=== PATIENT | male | born 1945 ===

== ENCOUNTER 2024-10-28 13:21 | Outpatient (CLI) | payer MEDICARE, BC, SELFPAY | END 2024-10-28 13:22 | disposition home or self-care (01) | LOC: AMB 10-29 13:41 | PROVIDERS: PCP Family Medicine; Visit Provider Family Medicine | DX: R41.82 Altered mental status, unspecified (principal); Z91.81 History of falling | CPT/HCPCS: A0425; A0429 ==

== ENCOUNTER 2024-10-28 14:13 | Emergency (ER) | payer MEDICARE, BC, SELFPAY ==
[2024-10-28 14:16] VITALS: BP 155/67; PULSE 62; RESP 16; TEMP 36.5; O2SAT 94
--- NOTE | 2024-10-28 15:32 | CRLHL7_ITS ---
For Patients: As a result of the Century Cures Act, medical imaging exams and procedure reports are released immediately into your electronic medical record. You may view this report before your referring provider. If you have questions, please contact your health care provider. INDICATION: Falls TECHNIQUE: CT of the head without contrast. Coronal and sagittal reformats. Bone and soft tissue algorithms. COMPARISON: None FINDINGS: No acute intracranial hemorrhage or extra-axial collection. No evidence of acute cortical infarction. Prominent perivascular spaces in the bilateral basal ganglia and subinsular cortex No mass effect or midline shift. Moderate generalized parenchymal volume loss. Moderate regions of decreased attenuation within the periventricular and subcortical white matter of both cerebral hemispheres most likely reflect chronic microvascular ischemic disease and age related change in this patient. Vascular calcifications within the carotid siphons. Orbital contents are normal. No calvarial fractures. No lytic or sclerotic osseous lesions within the calvarium or skull base. Scalp and other imaged soft tissue structures are normal. Mastoid air cells are clear. IMPRESSION: No acute intracranial abnormality. Please note that all CT scans at this facility use dose modulation, iterative reconstruction, and/or weight-based dosing when appropriate to reduce radiation dose to as low as reasonably achievable. Dictated by Jose Olvera MD @ 10/28/2024 4:21:49 PM (Electronically Signed)
[2024-10-28 15:55] LABS: Basophils Absolute Auto 0.03 K/uL (0.00-0.30); Basophils Percent Auto 0.4 % (0.0-3.0); Eosinophils Percent Auto 7.4 % (0.0-7.0); Hematocrit 34.1 % (37.0-53.0); Immature Granulocytes Abs Auto 0.02 K/uL (0.00-0.30); Immature Granulocytes Pct Auto 0.3 %; Lymphocytes Percent Auto 16.4 % (20-44); Mean Corpuscular HGB Conc 32 gm/dL (32-36); Mean Corpuscular Hemoglobin 28 pg (26-34); Mean Corpuscular Volume 88 fL (80-100); Monocytes Percent Auto 9.8 % (0.0-11.0); Neutrophils Absolute Auto 4.44 K/uL (1.7-7.0); Neutrophils Percent Auto 65.7 % (42.0-72.0); Platelet Count* 194 K/uL (140-440); RDW Coefficient of Variation % 13.3 % (11.5-15.5); Red Blood Count 3.89 m/uL (4.30-5.90); White Blood Count* 6.76 K/uL (4.50-11.00)
[2024-10-28 16:06] LABS: Slide Review Reflex No
[2024-10-28 16:09] LABS: Chloride* 101 mmol/L (96-114); Potassium* 4.4 mmol/L (3.6-5.1); Sodium* 137 mmol/L (135-149)
[2024-10-28 16:12] LABS: Anion Gap 3 mEq/L (7-15); Blood Urea Nitrogen* 12 mg/dL (7-30); Calcium* 8.5 mg/dL (8.4-10.6); Carbon Dioxide* 33 mmol/L (20-32); Creatinine* 0.8 mg/dL (0.5-1.5); Estimated Glomerular Filt Rate 89 ml/min; Glucose* 194 mg/dL (60-115)
--- NOTE | 2024-10-28 16:20 | ED.GENADULT ---
HPI - General Adult General Chief complaint: Fall/Minor Trauma Stated complaint: Repeated Falls Time Seen by Provider: 10/28/24 15:02 History of Present Illness HPI narrative: This 78-year-old male is a new resident apparently in a [facility] facility. He has significant dementia. He has reportedly fallen a couple times a few days ago and again today. These were unwitnessed. The patient is a very poor historian but states that he is not complaining of any pain. He is moving all extremities and shows no sign of injury externally. He was sent here for evaluation because of frequent falls. The patient is under the guardianship of [facility]. Related Data Home Medications ?Medication ?Instructions ?Recorded ?Confirmed aspirin 81 mg tablet,delayed 81 mg PO DAILY 10/28/24 10/28/24 release (Adult Aspirin Regimen) atorvastatin 10 mg tablet 10 mg PO HS 10/28/24 10/28/24 cyanocobalamin (vitamin B-12) 100 100 mcg PO DAILY 10/28/24 10/28/24 mcg tablet escitalopram oxalate 10 mg tablet 10 mg PO DAILY 10/28/24 10/28/24 furosemide 20 mg tablet 20 mg PO DAILY 10/28/24 10/28/24 insulin glargine 100 unit/mL (3 12 unit subcut HS 10/28/24 10/28/24 mL) subcutaneous pen (Basaglar KwikPen U-100 Insulin) insulin lispro 100 unit/mL 3 unit subcut TID 10/28/24 10/28/24 subcutaneous pen (Admelog SoloStar U-100 Insulin lispro) lisinopril 20 mg tablet 20 mg PO DAILY 10/28/24 10/28/24 metformin 1,000 mg tablet,extended 1,000 mg PO BIDWM 10/28/24 10/28/24 release 24hr (osmotic) metoprolol tartrate 100 mg tablet 100 mg PO BID 10/28/24 10/28/24 multivitamin (Daily Multi-Vitamin 1 tab PO DAILY 10/28/24 10/28/24 tablet) potassium chloride 20 mEq oral 20 meq PO DAILY 10/28/24 10/28/24 packet (Klor-Con) quetiapine 200 mg tablet (Seroquel) 200 mg PO BID 10/28/24 10/28/24 Allergies Allergy/AdvReac Type Severity Reaction Status Date / Time No Known Drug Allergies Allergy Verified 10/28/24 14:42 Review of Systems Status of ROS: Reports: unobtainable due to mental status Narrative: Unable to obtain due to significant dementia. [facility] Smoking Status: Unknown if ever smoked Exam Narrative: Exam Narrative: Constitutional: Well-developed, well-nourished, no acute distress. HEENT: Normocephalic, atraumatic. Neck: Normal range of motion. Nontender. Supple. Heart: Regular. No murmurs. Normal rate. Intact distal pulses. Lungs: Clear to auscultation. No chest discomfort. No wheezes, rhonchi, or rales. Abdomen: Normal bowel sounds. Nontender. No rebound tenderness. Genitalia: Deferred. Back: No midline tenderness. Normal range of motion. Extremities: Normal range of motion. No injury. No pain when log-rolling either leg. Skin: Intact. No rash. Warm. No erythema or pallor. Neurologic: No altered sensation. No weakness. Able to move all extremities. Nursing notes and vitals signs are reviewed. Const: Vital Signs, click to edit/add: Vital Signs - 24 hr 10/28/24 14:16 Temperature 97.7 F Pulse Rate [Pulse Oximeter] 62 Respiratory Rate 16 Blood Pressure [Ri ght Upper Arm] 155/67 H Pulse Oximetry 94 Oxygen Delivery Me thod Room Air Course Vital Signs Vital signs: Initial Vital Signs Temperature 97.7 F 10/28/24 14:16 Temperature Source Temporal Artery Scan 10/28/24 14:16 Pulse Rate 62 10/28/24 14:16 Respiratory Rate 16 10/28/24 14:16 Blood Pressure 155/67 H 10/28/24 14:16 Blood Pressure Mean 96 10/28/24 14:16 Blood Pressure Position Supine 10/28/24 14:16 Pulse Oximetry 94 10/28/24 14:16 Oxygen Delivery Method Room Air 10/28/24 14:16 Vital Signs Temperature 97.7 F 10/28/24 14:16 Pulse Rate 62 10/28/24 14:16 Respiratory Rate 16 10/28/24 14:16 Blood Pressure 155/67 H 10/28/24 14:16 Pulse Oximetry 94 10/28/24 14:16 Oxygen Delivery Method Room Air 10/28/24 14:16 Temperature 97.7 F 10/28/24 14:16 Pulse Rate 62 10/28/24 14:16 Respiratory Rate 16 10/28/24 14:16 Blood Pressure 155/67 H 10/28/24 14:16 Pulse Oximetry 94 10/28/24 14:16 Oxygen Delivery Method Room Air 10/28/24 14:16 Medical Decision Making MDM Narrative Medical decision making narrative: This patient is a new resident in a care facility and has had several falls over the past few days. He has significant dementia and is not able to carry on a meaningful conversation. He does follow some commands and is able to move all extremities. When palpating his extremities and ribs and abdomen he did not report any sign of discomfort. He is moving all extremities and does not have any external sign of injury. I did obtain a CT scan of his head and labs and these returned with reassuring results. The patient obviously is at risk for falls but is okay to return to the care home facility where he resides. Lab Data Labs: Lab Results 10/28/24 Range/Units 15:48 WBC 6.76 (4.50-11.00) K/uL RBC 3.89 L (4.30-5.90) m/uL Hgb 11.0 L (13.5-17.5) gm/dL Hct 34.1 L (37.0-53.0) % MCV 88 (80-100) fL MCH 28 (26-34) pg MCHC 32 (32-36) gm/dL RDW Coeff of Harvinder 13.3 (11.5-15.5) % Plt Count 194 (140-440) K/uL Neut % (Auto) 65.7 (42.0-72.0) % Lymph % (Auto) 16.4 L (20-44) % [place] % (Auto) 9.8 (0.0-11.0) % Eos % (Auto) 7.4 H (0.0-7.0) % Baso % (Auto) 0.4 (0.0-3.0) % Neut # (Auto) 4.44 (1.7-7.0) K/uL Lymph # (Auto) 1.10 (0.90-2.90) K/uL [place] # (Auto) 0.70 (0.00-0.90) K/UL Eos # (Auto) 0.50 (0.00-0.50) K/uL Baso # (Auto) 0.03 (0.00-0.30) K/uL Abs Immat Gran (auto) 0.02 (0.00-0.30) K/uL Imm/Tot Granulo (auto) 0.3 % Sodium 137 (135-149) mmol/L Potassium 4.4 (3.6-5.1) mmol/L Chloride 101 (96-114) mmol/L Carbon Dioxide 33 H (20-32) mmol/L Anion Gap 3 L (7-15) mEq/L BUN 12 (7-30) mg/dL Creatinine 0.8 (0.5-1.5) mg/dL Estimated GFR 89 ml/min Glucose 194 H (60-115) mg/dL Calcium 8.5 (8.4-10.6) mg/dL Imaging Data CT scan - head: Radiologist's impression: FINDINGS: No acute intracranial hemorrhage or extra-axial collection. No evidence of acute cortical infarction. Prominent perivascular spaces in the bilateral basal ganglia and subinsular cortex No mass effect or midline shift. Moderate generalized parenchymal volume loss. Moderate regions of decreased attenuation within the periventricular and subcortical white matter of both cerebral hemispheres most likely reflect chronic microvascular ischemic disease and age related change in this patient. Vascular calcifications within the carotid siphons. Orbital contents are normal. No calvarial fractures. No lytic or sclerotic osseous lesions within the calvarium or skull base. Scalp and other imaged soft tissue structures are normal. Mastoid air cells are clear. IMPRESSION: No acute intracranial abnormality. Discharge Plan Discharge Clinical Impression: Frequent falls Patient Disposition: Home w/ Parent or Adult Condition: Unchanged Additional Instructions: Continue current plans with falls precautions. Follow up with MD as needed. Prescriptions: No Action insulin lispro [Admelog SoloStar U-100 Insulin] 100 unit/mL insulin pen 3 unit subcut TID aspirin [Adult Aspirin Regimen] 81 mg tablet,delayed release (DR/EC) 81 mg PO DAILY atorvastatin 10 mg tablet 10 mg PO HS insulin glargine [Basaglar KwikPen U-100 Insulin] 100 unit/mL (3 mL) insulin pen 12 unit subcut HS escitalopram oxalate 10 mg tablet 10 mg PO DAILY furosemide 20 mg tablet 20 mg PO DAILY lisinopril 20 mg tablet 20 mg PO DAILY metoprolol tartrate 100 mg tablet 100 mg PO BID multivitamin [Daily Multi-Vitamin] Tablet 1 tab PO DAILY quetiapine [Seroquel] 200 mg tablet 200 mg PO BID cyanocobalamin (vitamin B-12) 100 mcg tablet 100 mcg PO DAILY potassium chloride [Klor-Con] 20 mEq packet 20 meq PO DAILY metformin 1,000 mg tablet extended release 24hr 1,000 mg PO BIDWM Follow Up/Referrals: Nathalia Smiley MD [Primary Care Provider, Family Practice] Stand Alone Forms: [employer] Info Instructions
== END 2024-10-28 17:55 | disposition home or self-care (01) ==
PROVIDERS: Emergency Provider Emergency Medicine Emergency Medical Services; PCP Family Medicine
DX: S09.90XA Unspecified injury of head, initial encounter (principal); F03.A0 Unspecified dementia, mild, without behavioral disturbance, psychotic disturbance, mood disturbance, and anxiety; Z91.81 History of falling
CPT/HCPCS: 36415; 70450; 80048; 85025; 99284

== ENCOUNTER 2024-10-28 17:52 | Outpatient (CLI) | payer MEDICARE, BC, SELFPAY | END 2024-10-28 17:53 | disposition home or self-care (01) | LOC: AMB 11-05 07:56 | PROVIDERS: PCP Family Medicine; Visit Provider Family Medicine | DX: Z91.81 History of falling (principal); F03.90 Unspecified dementia, unspecified severity, without behavioral disturbance, psychotic disturbance, mood disturbance, and anxiety | CPT/HCPCS: A0425; A0427; A0428 ==

== ENCOUNTER 2024-12-14 10:15 | Outpatient (CLI) | payer MEDICARE, BC, SELFPAY | END 2024-12-14 10:16 | disposition home or self-care (01) | PROVIDERS: PCP Family Medicine; Visit Provider Family Medicine | DX: R55 Syncope and collapse (principal) | CPT/HCPCS: A0425; A0427 ==

== ENCOUNTER 2024-12-14 10:51 | Emergency (ER) | payer MEDICARE, BC, SELFPAY ==
[2024-12-14 11:02] VITALS: BP 178/72; PULSE 60; RESP 18; TEMP 36.2; O2SAT 97; BMI 27.3
--- NOTE | 2024-12-14 11:17 | ED.GENADULT ---
HPI - General Adult General Chief complaint: Syncope/Fainted Stated complaint: weakness Time Seen by Provider: 12/14/24 10:55 History of Present Illness HPI narrative: Patient is a 79-year-old male in a Memory Care Unit in [place]. He was getting up going to the bathroom and had a brief syncopal episode. He has seemed to be back to normal shortly thereafter no seizure activity. He has been in a good state of health, no recent cough reported by staff or fever. He is back to baseline per staff. He was brought in by EMS. He has no complaints. He has pretty significantly demented. But he does deny chest pain. He denies any discomfort in his chest, breathing problem or abdominal pain. Related Data Home Medications ?Medication ?Instructions ?Recorded ?Confirmed aspirin 81 mg tablet,delayed 81 mg PO DAILY 10/28/24 12/14/24 release (Adult Aspirin Regimen) atorvastatin 10 mg tablet 10 mg PO HS 10/28/24 12/14/24 cyanocobalamin (vitamin B-12) 100 100 mcg PO DAILY 10/28/24 10/28/24 mcg tablet escitalopram oxalate 10 mg tablet 10 mg PO DAILY 10/28/24 12/14/24 furosemide 20 mg tablet 20 mg PO DAILY 10/28/24 12/14/24 insulin glargine 100 unit/mL (3 12 unit subcut HS 10/28/24 10/28/24 mL) subcutaneous pen (Basaglar KwikPen U-100 Insulin) insulin lispro 100 unit/mL 3 unit subcut TID 10/28/24 12/14/24 subcutaneous pen (Admelog SoloStar U-100 Insulin lispro) lisinopril 20 mg tablet 20 mg PO DAILY 10/28/24 12/14/24 metformin 1,000 mg tablet,extended 1,000 mg PO BIDWM 10/28/24 10/28/24 release 24hr (osmotic) metoprolol tartrate 100 mg tablet 100 mg PO BID 10/28/24 12/14/24 multivitamin (Daily Multi-Vitamin 1 tab PO DAILY 10/28/24 10/28/24 tablet) potassium chloride 20 mEq oral 20 meq PO DAILY 10/28/24 10/28/24 packet (Klor-Con) quetiapine 200 mg tablet (Seroquel) 200 mg PO BID 10/28/24 12/14/24 cyanocobalamin (vitamin B-12) 1,000 mcg PO DAILY 12/14/24 12/14/24 1,000 mcg tablet metformin 500 mg tablet,extended mg PO 12/14/24 release 24 hr multivitamin with folic acid 400 1 tab PO QPM 12/14/24 12/14/24 mcg tablet (Daily-Denisha (with folic acid)) potassium chloride 20 mEq 20 meq PO DAILY 12/14/24 12/14/24 tablet,extended release Allergies Allergy/AdvReac Type Severity Reaction Status Date / Time No Known Drug Allergies Allergy Verified 10/28/24 14:42 Review of Systems Status of ROS: Reports: unobtainable due to mental status [facility] Social History Smoking Status: Unknown if ever smoked Exam Narrative: Exam Narrative: Objective: Patient's vital signs show no fever, blood pressure 178/72 O2 sat 97 on room air pulse is 60 and regular Alert , , he does shake his head no, will say no. Is unable to respond to person place or time. HEENT shows dry mucous membranes in the mouth pupils, extra ocular movements intact, but not with command but he does move his eyes. Neck is supple Chest clear Heart rhythm regular with occasional ectopic beat 2/6 systolic murmur Abdomen benign soft Extremities are no edema neurologic nonfocal. Skin no rashes or cellulitic changes in his legs or arms or abdomen. Const: Vital Signs, click to edit/add: Vital Signs - 24 hr 12/14/24 11:02 12/14/24 11:25 12/14/24 11:27 Temperature 97.1 F L Pulse Rate 56 L 53 L Pulse Rate [Pulse Oximeter] 60 Respiratory Rate 18 14 16 Blood Pressure 190/71 H Blood Pressure [Ri ght Upper Arm] 178/72 H Pulse Oximetry 97 97 96 Oxygen Delivery Me thod Room Air 12/14/24 11:30 12/14/24 11:45 12/14/24 11:47 Temperature Pulse Rate 55 L 59 L 59 L Pulse Rate [Pulse Oximeter] Respiratory Rate Blood Pressure 163/70 H Blood Pressure [Ri ght Upper Arm] Pulse Oximetry 98 97 98 Oxygen Delivery Me thod Course Vital Signs Vital signs: Initial Vital Signs Temperature 97.1 F L 12/14/24 11:02 Temperature Source Temporal Artery Scan 12/14/24 11:02 Pulse Rate 60 12/14/24 11:02 Respiratory Rate 18 12/14/24 11:02 Blood Pressure 178/72 H 12/14/24 11:02 Blood Pressure Mean 107 H 12/14/24 11:02 Pulse Oximetry 97 12/14/24 11:02 Oxygen Delivery Method Room Air 12/14/24 11:02 Vital Signs Temperature 97.1 F L 12/14/24 11:02 Pulse Rate 60 12/14/24 11:02 Respiratory Rate 18 12/14/24 11:02 Blood Pressure 178/72 H 12/14/24 11:02 Pulse Oximetry 97 12/14/24 11:02 Oxygen Delivery Method Room Air 12/14/24 11:02 Temperature 97.1 F L 12/14/24 11:02 Pulse Rate 59 L 12/14/24 11:47 Respiratory Rate 16 12/14/24 11:27 Blood Pressure 163/70 H 12/14/24 11:47 Pulse Oximetry 98 12/14/24 11:47 Oxygen Delivery Method Room Air 12/14/24 11:02 Medications Administered Medications: Discontinued Medications Generic Name Dose Route Start Last Admin Trade Name Freq PRN Reason Stop Dose Admin Sodium Chloride 500 mls @ 500 mls/hr 12/14/24 11:15 12/14/24 12:31 0.9 % Sodium Chloride 500 Ml IV 12/14/24 12:14 Infused .Q1H ONE Infusion Medical Decision Making MDM Narrative Medical decision making narrative: [age] white male with history of significant dementia and Memory Care Unit. By staff reports he is full code. The patient has returned to baseline from a syncopal episode. At this point I think checking EKG, rehydrating with fiber mL normal saline. He does seem a little dehydrated. Checking his electrolytes would be appropriate, check a troponin. Family member guardian was contacted they do wish basic workup. I suspected his labs return normal he is feeling okay we can allow him to go home. Will see what his labs show. Addendum 12:15 p.m. patient's EKG by my read shows right bundle-branch block sinus bradycardia no acute ST T wave changes, his laboratory studies show normal white blood cell count hemoglobin 11.5 platelet count [id number], ER profile looks unremarkable other than glucose slightly elevated 141 nonfasting. He only had 1 time episode of near-syncope has not had any symptoms now I do not think we need to have actually having get a urine test at this time he has persistent symptoms or could be obtained. Would recommend observation. He seems to be improved after he got some IV hydration as well. Will long to go home, return as needed. Suspect he has mild dehydration and near syncopal episode from that. Return as needed Lab Data Labs: Lab Results 12/14/24 12/14/24 Range/Units 11:16 11:35 WBC 7.18 (4.50-11.00) K/uL RBC 4.19 L (4.30-5.90) m/uL Hgb 11.5 L (13.5-17.5) gm/dL Hct 35.9 L (37.0-53.0) % MCV 86 (80-100) fL MCH 27 (26-34) pg MCHC 32 (32-36) gm/dL RDW Coeff of Harvinder 13.4 (11.5-15.5) % Plt Count 189 (140-440) K/uL Neut % (Auto) 69.3 (42.0-72.0) % Lymph % (Auto) 14.3 L (20-44) % [place] % (Auto) 9.3 (0.0-11.0) % Eos % (Auto) 6.4 (0.0-7.0) % Baso % (Auto) 0.6 (0.0-3.0) % Neut # (Auto) 4.97 (1.7-7.0) K/uL Lymph # (Auto) 1.00 (0.90-2.90) K/uL [place] # (Auto) 0.70 (0.00-0.90) K/UL Eos # (Auto) 0.46 (0.00-0.50) K/uL Baso # (Auto) 0.04 (0.00-0.30) K/uL Abs Immat Gran (auto) 0.01 (0.00-0.30) K/uL Imm/Tot Granulo (auto) 0.1 % Sodium 138 (135-149) mmol/L Potassium 4.3 (3.6-5.1) mmol/L Chloride 101 (96-114) mmol/L Carbon Dioxide 34 H (20-32) mmol/L Anion Gap 3 L (7-15) mEq/L BUN 20 (7-30) mg/dL Creatinine 1.0 (0.5-1.5) mg/dL Estimated Creat Clear 59.82 Estimated GFR 76 ml/min Glucose 141 H (60-115) mg/dL Calcium 8.8 (8.4-10.6) mg/dL POC Troponin I 0.01 (0.01-0.04) ng/ml Discharge Plan Discharge Clinical Impression: Vasovagal syncope, Dehydration Patient Disposition: Home w/ Parent or Adult Condition: Improved Additional Instructions: Light activity, push fluids regularly, continue his home medications. Return check with regular doctor the next 2-3 days, return here as needed. Activity Level: Light activity Discharge Diet: Regular Prescriptions: No Action insulin lispro [Admelog SoloStar U-100 Insulin] 100 unit/mL insulin pen 3 unit subcut TID aspirin [Adult Aspirin Regimen] 81 mg tablet,delayed release (DR/EC) 81 mg PO DAILY atorvastatin 10 mg tablet 10 mg PO HS insulin glargine [Basaglar KwikPen U-100 Insulin] 100 unit/mL (3 mL) insulin pen 12 unit subcut HS escitalopram oxalate 10 mg tablet 10 mg PO DAILY furosemide 20 mg tablet 20 mg PO DAILY lisinopril 20 mg tablet 20 mg PO DAILY metoprolol tartrate 100 mg tablet 100 mg PO BID multivitamin [Daily Multi-Vitamin] Tablet 1 tab PO DAILY quetiapine [Seroquel] 200 mg tablet 200 mg PO BID cyanocobalamin (vitamin B-12) 100 mcg tablet 100 mcg PO DAILY potassium chloride [Klor-Con] 20 mEq packet 20 meq PO DAILY metformin 1,000 mg tablet extended release 24hr 1,000 mg PO BIDWM cyanocobalamin (vitamin B-12) 1,000 mcg tablet 1,000 mcg PO DAILY metformin 500 mg tablet extended release 24 hr PO multivitamin with folic acid [Daily-Denisha (with folic acid)] 400 mcg tablet 1 tab PO QPM potassium chloride 20 mEq tablet extended release 20 meq PO DAILY Follow Up/Referrals: Nathalia Smiley MD [Primary Care Provider, Family Practice] [facility] Info Instructions
[2024-12-14 11:25] VITALS: PULSE 56; RESP 14; O2SAT 97
[2024-12-14 11:27] VITALS: BP 190/71; PULSE 53; RESP 16; O2SAT 96
[2024-12-14 11:30] VITALS: PULSE 55; O2SAT 98
[2024-12-14 11:45] VITALS: PULSE 59; O2SAT 97
[2024-12-14 11:47] VITALS: BP 163/70; PULSE 59; O2SAT 98
[2024-12-14 11:48] LABS: Hematocrit 35.9 % (37.0-53.0); Hemoglobin* 11.5 gm/dL (13.5-17.5); Immature Granulocytes Abs Auto 0.01 K/uL (0.00-0.30); Immature Granulocytes Pct Auto 0.1 %; Mean Corpuscular HGB Conc 32 gm/dL (32-36); Mean Corpuscular Hemoglobin 27 pg (26-34); Mean Corpuscular Volume 86 fL (80-100); RDW Coefficient of Variation % 13.4 % (11.5-15.5); Red Blood Count 4.19 m/uL (4.30-5.90); White Blood Count* 7.18 K/uL (4.50-11.00)
[2024-12-14 11:50] LABS: Lymphocytes Absolute Auto 1.00 K/uL (0.90-2.90); Slide Review Reflex No
[2024-12-14] MEDS: 0.9 % SODIUM CHLORIDE 500 ML 500 ML IV (11:51)
[2024-12-14 12:01] LABS: Chloride* 101 mmol/L (96-114); Sodium* 138 mmol/L (135-149)
[2024-12-14 12:02] LABS: Potassium* 4.3 mmol/L (3.6-5.1)
[2024-12-14 12:05] LABS: Anion Gap 3 mEq/L (7-15); Blood Urea Nitrogen* 20 mg/dL (7-30); Calcium* 8.8 mg/dL (8.4-10.6); Carbon Dioxide* 34 mmol/L (20-32); Creatinine* 1.0 mg/dL (0.5-1.5); Est. Creatinine Clearance* 59.82; Estimated Glomerular Filt Rate 76 ml/min; Glucose* 141 mg/dL (60-115)
[2024-12-14 12:26] LABS: Troponin, Point-of-Care* 0.01 ng/ml (0.01-0.04)
== END 2024-12-14 12:55 | disposition home or self-care (01) ==
PROVIDERS: Emergency Provider Family Medicine; PCP Family Medicine
DX: R55 Syncope and collapse (principal); F03.90 Unspecified dementia, unspecified severity, without behavioral disturbance, psychotic disturbance, mood disturbance, and anxiety; E86.0 Dehydration; R53.1 Weakness
CPT/HCPCS: 36415; 80048; 81001; 84484; 85025; 87086; 93005; 99284; 99285; J7030

== ENCOUNTER 2024-12-14 12:54 | Outpatient (CLI) | payer MEDICARE, BC, SELFPAY | END 2024-12-14 12:55 | disposition home or self-care (01) | PROVIDERS: PCP Family Medicine; Visit Provider Family Medicine | DX: R53.1 Weakness (principal); F03.90 Unspecified dementia, unspecified severity, without behavioral disturbance, psychotic disturbance, mood disturbance, and anxiety | CPT/HCPCS: A0425; A0428 ==

== ENCOUNTER 2025-05-05 13:21 | Outpatient (CLI) | payer BC, SELFPAY | END 2025-05-05 13:22 | disposition home or self-care (01) | LOC: AMB 05-09 17:41 | PROVIDERS: PCP Family Medicine; Visit Provider Emergency Medicine | DX: R53.1 Weakness (principal); F03.90 Unspecified dementia, unspecified severity, without behavioral disturbance, psychotic disturbance, mood disturbance, and anxiety | CPT/HCPCS: A0425; A0429 ==

== ENCOUNTER 2025-05-05 13:49 | Emergency (ER) | payer BC, SELFPAY ==
[2025-05-05 13:56] VITALS: BP 126/49; PULSE 62; RESP 16; TEMP 36.3; O2SAT 96; BMI 30.2
--- NOTE | 2025-05-05 14:17 | ED.GENADULT ---
HPI - General Adult General Date Seen: 05/05/25 <Mili Waldrop MD - Last Filed: 05/06/25 10:05> Chief complaint: Weakness <Mili Waldrop MD - Last Filed: 05/06/25 10:05> Stated complaint: weakness <Mili Waldrop MD - Last Filed: 05/06/25 10:05> Time Seen by Provider: 05/05/25 13:54 <Mili Waldrop MD - Last Filed: 05/06/25 10:05> History of Present Illness HPI narrative: Patient is an 79-year-old brought in from [facility] by EMS due to weakness today. Apparently he normally is able to walk and today has not been able to get up and walk. Patient is not able to provide any history. He has significant dementia, he does interact, makes eye contact, but does not provide any meaningful history. There is no reported specific complaints, no reported fever, vomiting, diarrhea, focal neurologic changes. No recent reported injuries. Medications are reviewed and include insulin, metformin, metoprolol, Seroquel among others. Medical history reviewed and notable for diabetes, dementia, hypertension. <Mili Waldrop MD - Last Filed: 05/06/25 10:05> Related Data Home medications: Home Medications ?Medication ?Instructions ?Recorded ?Confirmed aspirin 81 mg tablet,delayed 81 mg PO DAILY 10/28/24 12/14/24 release (Adult Aspirin Regimen) atorvastatin 10 mg tablet 10 mg PO HS 10/28/24 12/14/24 cyanocobalamin (vitamin B-12) 100 100 mcg PO DAILY 10/28/24 10/28/24 mcg tablet escitalopram oxalate 10 mg tablet 10 mg PO DAILY 10/28/24 12/14/24 furosemide 20 mg tablet 20 mg PO DAILY 10/28/24 12/14/24 insulin glargine 100 unit/mL (3 12 unit subcut HS 10/28/24 10/28/24 mL) subcutaneous pen (Basaglar KwikPen U-100 Insulin) insulin lispro 100 unit/mL 3 unit subcut TID 10/28/24 12/14/24 subcutaneous pen (Admelog SoloStar U-100 Insulin lispro) lisinopril 20 mg tablet 20 mg PO DAILY 10/28/24 12/14/24 metformin 1,000 mg tablet,extended 1,000 mg PO BIDWM 10/28/24 10/28/24 release 24hr (osmotic) metoprolol tartrate 100 mg tablet 100 mg PO BID 10/28/24 12/14/24 multivitamin (Daily Multi-Vitamin 1 tab PO DAILY 10/28/24 10/28/24 tablet) potassium chloride 20 mEq oral 20 meq PO DAILY 10/28/24 10/28/24 packet (Klor-Con) quetiapine 200 mg tablet (Seroquel) 200 mg PO BID 10/28/24 12/14/24 cyanocobalamin (vitamin B-12) 1,000 mcg PO DAILY 12/14/24 12/14/24 1,000 mcg tablet metformin 500 mg tablet,extended mg PO 12/14/24 release 24 hr multivitamin with folic acid 400 1 tab PO QPM 12/14/24 12/14/24 mcg tablet (Daily-Denisha (with folic acid)) potassium chloride 20 mEq 20 meq PO DAILY 12/14/24 12/14/24 tablet,extended release <Mili Waldrop MD - Last Filed: 05/06/25 10:05> Allergies/adverse reactions: Allergies Allergy/AdvReac Type Severity Reaction Status Date / Time No Known Drug Allergies Allergy Verified 10/28/24 14:42 <Mili Waldrop MD - Last Filed: 05/06/25 10:05> Review of Systems Status of ROS: Reports: unobtainable due to medical condition <Mili Waldrop MD - Last Filed: 05/06/25 10:05> [facility] Social History: Social History Smoking Status: Unknown if ever smoked <Mili Waldrop MD - Last Filed: 05/06/25 10:05> Exam Narrative: Exam Narrative: Vital signs reviewed In general, an alert, nontoxic elderly male. Head: Normocephalic, atraumatic. Eyes: Sclera clear. Pupils equal and reactive. ENT: Mucous membranes somewhat dry. Neck: Supple without adenopathy. Heart: Regular rate and rhythm without murmur. Lungs: Clear. No increased work of breathing, crackles or wheezes. Abdomen: Soft, nontender to palpation. Extremities: Well perfused, pulses intact. No significant edema. Neurologic: Patient is alert, he is moving all extremities equally. Answers some simple questions with one-word answers although they are not necessarily appropriate answers. Skin: Warm, dry well perfused. Affect: Normal. <Mili Waldrop MD - Last Filed: 05/06/25 10:05> Const: Vital Signs, click to edit/add: Vital Signs - 24 hr 05/05/25 13:56 05/05/25 16:00 05/05/25 16:30 Temperature 97.3 F L Pulse Rate [Pulse Oximeter] 62 60 59 L Respiratory Rate 16 18 20 Blood Pressure [Ri ght Upper Arm] 126/49 L 141/63 H 143/60 H Pulse Oximetry 96 96 96 Oxygen Delivery Me thod Room Air 05/05/25 17:00 Temperature Pulse Rate [Pulse Oximeter] 60 Respiratory Rate 14 Blood Pressure [Ri ght Upper Arm] 144/61 H Pulse Oximetry 95 Oxygen Delivery Me thod <Mili Waldrop MD - Last Filed: 05/06/25 10:05> Vital Signs, click to edit/add: Vital Signs - 24 hr 05/05/25 13:56 05/05/25 16:00 05/05/25 16:30 Temperature 97.3 F L Pulse Rate [Pulse Oximeter] 62 60 59 L Respiratory Rate 16 18 20 Blood Pressure [Ri ght Upper Arm] 126/49 L 141/63 H 143/60 H Pulse Oximetry 96 96 96 Oxygen Delivery Me thod Room Air 05/05/25 17:00 Temperature Pulse Rate [Pulse Oximeter] 60 Respiratory Rate 14 Blood Pressure [Ri ght Upper Arm] 144/61 H Pulse Oximetry 95 Oxygen Delivery Me thod <Srini Staley MD - Last Filed: 05/05/25 17:51> Course Course ED Course: Patient brought to ER for generalized weakness, setting of severe dementia. Diagnostic considerations would include infection, acute coronary syndrome, metabolic derangement, dehydration, stroke, intracranial hemorrhage, among others. In the absence of seeming focal findings on neurologic exam my suspicion for a central cause for his symptoms is somewhat lower. Will start with labs, give him a little fluid, EKG. By my review, EKG shows a sinus rhythm, ventricular rate of 61. Right bundle-branch block. Troponin is negative. Labs are most notable for a lactate of 2.7. Blood sugar is 177. LFTs are normal, CRP is somewhat elevated at 5.7 of uncertain significance considering the rest of the picture. White blood cell count is normal at 7.2, hemoglobin 11.6 which is his baseline. Urinalysis shows 3+ protein and 1+ ketones and is otherwise negative. He is not acidotic, CO2 is 30. Normal gap. He does appear dehydrated to me, I gave him 500 mL of normal saline originally, will give another 500 mL. I am not finding another explanation for his weakness today. Will recheck lactate and assuming it is improving, I think he can go back to the care facility. Should be re-evaluated in the next day or 2 to make sure he is getting back to baseline. Diagnosis: Weakness. Dementia. Dehydration. <Mili Waldrop MD - Last Filed: 05/06/25 10:05> Reevaluation(s) Reevaluation #1: Patient signed out to Dr. Staley at shift change. Patient is a pleasant elderly gentleman with dementia brought to the ER today for weakness. Initial labs are reassuring safe for lactic acid elevated 2.7. Per Dr. Waldrop she feels this is probably related dehydration . Patient is receiving IV fluid bolus with the plan to recheck his lactic after that. If his lactic is improved and his weakness improved, Dr. Waldrop plans the patient will be able to discharge from the ER. I recheck the patient at about 5:00 p.m.. He was sitting up in a wheelchair. He had actually come out to the nurse's station because of dementia and the nurses had him say a wheelchair next to them. He was pleasantly demented. Cooperative. He completed his IV fluid bolus. Repeat lactic acid improved from 2.7 down to 1.8. He remains hemodynamically stable. He was able to ambulate and nurses report that he is walking pretty well. He will be discharged as per Dr. Daniels plan. <Srini Staley MD - Last Filed: 05/05/25 17:51> Vital Signs Vital signs: Initial Vital Signs Temperature 97.3 F L 05/05/25 13:56 Temperature Source Temporal Artery Scan 05/05/25 13:56 Pulse Rate 62 05/05/25 13:56 Respiratory Rate 16 05/05/25 13:56 Blood Pressure 126/49 L 05/05/25 13:56 Blood Pressure Mean 74 05/05/25 13:56 Blood Pressure Position Supine 05/05/25 13:56 Pulse Oximetry 96 05/05/25 13:56 Oxygen Delivery Method Room Air 05/05/25 13:56 Vital Signs Temperature 97.3 F L 05/05/25 13:56 Pulse Rate 62 05/05/25 13:56 Respiratory Rate 16 05/05/25 13:56 Blood Pressure 126/49 L 05/05/25 13:56 Pulse Oximetry 96 05/05/25 13:56 Oxygen Delivery Method Room Air 05/05/25 13:56 Temperature 97.3 F L 05/05/25 13:56 Pulse Rate 60 05/05/25 17:00 Respiratory Rate 14 05/05/25 17:00 Blood Pressure 144/61 H 05/05/25 17:00 Pulse Oximetry 95 05/05/25 17:00 Oxygen Delivery Method Room Air 05/05/25 13:56 <Mili Waldrop MD - Last Filed: 05/06/25 10:05> Initial Vital Signs Temperature 97.3 F L 05/05/25 13:56 Temperature Source Temporal Artery Scan 05/05/25 13:56 Pulse Rate 62 05/05/25 13:56 Respiratory Rate 16 05/05/25 13:56 Blood Pressure 126/49 L 05/05/25 13:56 Blood Pressure Mean 74 05/05/25 13:56 Blood Pressure Position Supine 05/05/25 13:56 Pulse Oximetry 96 05/05/25 13:56 Oxygen Delivery Method Room Air 05/05/25 13:56 Vital Signs Temperature 97.3 F L 05/05/25 13:56 Pulse Rate 62 05/05/25 13:56 Respiratory Rate 16 05/05/25 13:56 Blood Pressure 126/49 L 05/05/25 13:56 Pulse Oximetry 96 05/05/25 13:56 Oxygen Delivery Method Room Air 05/05/25 13:56 Temperature 97.3 F L 05/05/25 13:56 Pulse Rate 60 05/05/25 17:00 Respiratory Rate 14 05/05/25 17:00 Blood Pressure 144/61 H 05/05/25 17:00 Pulse Oximetry 95 05/05/25 17:00 Oxygen Delivery Method Room Air 05/05/25 13:56 <Srini Staley MD - Last Filed: 05/05/25 17:51> Medications Administered Medications: Discontinued Medications Generic Name Dose Route Start Last Admin Trade Name Freq PRN Reason Stop Dose Admin Sodium Chloride 500 mls @ 500 mls/hr 05/05/25 14:00 05/05/25 15:30 0.9 % Sodium Chloride 500 Ml IV 05/05/25 14:59 Infused .Q1H ONE Infusion Sodium Chloride 500 mls @ 500 mls/hr 05/05/25 15:52 05/05/25 17:20 0.9 % Sodium Chloride 500 Ml IV 05/05/25 16:51 500 mls/hr .Q1H ONE Administration <Mili Waldrop MD - Last Filed: 05/06/25 10:05> Discontinued Medications Generic Name Dose Route Start Last Admin Trade Name Freq PRN Reason Stop Dose Admin Sodium Chloride 500 mls @ 500 mls/hr 05/05/25 14:00 05/05/25 15:30 0.9 % Sodium Chloride 500 Ml IV 05/05/25 14:59 Infused .Q1H ONE Infusion Sodium Chloride 500 mls @ 500 mls/hr 05/05/25 15:52 05/05/25 17:20 0.9 % Sodium Chloride 500 Ml IV 05/05/25 16:51 500 mls/hr .Q1H ONE Administration <Srini Staley MD - Last Filed: 05/05/25 17:51> Medical Decision Making Lab Data Labs: Lab Results 05/05/25 05/05/25 Range/Units 14:30 16:41 WBC 7.21 (4.50-11.00) K/uL RBC 4.04 L (4.30-5.90) m/uL Hgb 11.6 L (13.5-17.5) gm/dL Hct 36.1 L (37.0-53.0) % MCV 89 (80-100) fL MCH 29 (26-34) pg MCHC 32 (32-36) gm/dL RDW Coeff of Harvinder 12.7 (11.5-15.5) % Plt Count 159 (140-440) K/uL Neut % (Auto) 73.5 H (42.0-72.0) % Lymph % (Auto) 10.1 L (20-44) % K[place]y % (Auto) 11.7 H (0.0-11.0) % Eos % (Auto) 3.5 (0.0-7.0) % Baso % (Auto) 0.4 (0.0-3.0) % Neut # (Auto) 5.30 (1.7-7.0) K/uL Lymph # (Auto) 0.70 L (0.90-2.90) K/uL [place]y # (Auto) 0.80 (0.00-0.90) K/UL Eos # (Auto) 0.25 (0.00-0.50) K/uL Baso # (Auto) 0.03 (0.00-0.30) K/uL Abs Immat Gran (auto) 0.06 (0.00-0.30) K/uL Imm/Tot Granulo (auto) 0.8 % Sodium 137 (135-149) mmol/L Potassium 3.9 (3.6-5.1) mmol/L Chloride 96 (96-114) mmol/L Carbon Dioxide 30 (20-32) mmol/L Anion Gap 11 (7-15) mEq/L BUN 18 (7-30) mg/dL Creatinine 1.1 (0.5-1.5) mg/dL Estimated Creat Clear 54.38 Estimated GFR 67 ml/min Glucose 177 H (60-115) mg/dL Lactate 2.7 H 1.8 (0.5-1.9) mmol/L Calcium 8.6 (8.4-10.6) mg/dL Total Bilirubin 1.1 (0.1-1.5) mg/dL Direct Bilirubin 0.2 (0.0-0.5) mg/dL AST 29 (12-35) U/L ALT 26 (4-50) U/L Alkaline Phosphatase 53 (40-150) U/L POC Troponin I High Sensi 12.8 (2.9-28.0) pg/mL C-Reactive Protein 5.7 H (0.5-1.0) mg/dL Total Protein 6.6 (6.0-8.3) g/dL Albumin 4.1 (3.3-5.0) g/dL Urine Color Yellow (Yellow) Urine Appearance Slightly Cloudy A (Clear) Urine pH 6.5 (5.0-8.5) Ur Specific Lilly 1.025 (1.000-1.030) Urine Protein 3+ A (Negative) Urine Glucose (UA) Negative (Negative) Urine Ketones 1+ A (Negative) Urine Blood Negative (Negative) Urine Nitrite Negative (Negative) Urine Bilirubin Negative (Negative) Urine Urobilinogen 0.2 (0.2-1.0) Ur Leukocyte Esterase Negative (Negative) Urine RBC 0-2 (0-2) Urine WBC 0-2 (0-5) Ur Squamous Epith Cells None (None-Few) Urine Bacteria None (None) SARS-CoV-2 (PCR) Negative SARS-CoV-2 (Negative) Influenza Type A (PCR) Negative PCR FLU A (Negative) Influenza Type B (PCR) Negative PCR FLU B (Negative) RSV (PCR) Negative PCR RSV (Negative) <Mili Waldrop MD - Last Filed: 05/06/25 10:05> Lab Results 05/05/25 05/05/25 Range/Units 14:30 16:41 WBC 7.21 (4.50-11.00) K/uL RBC 4.04 L (4.30-5.90) m/uL Hgb 11.6 L (13.5-17.5) gm/dL Hct 36.1 L (37.0-53.0) % MCV 89 (80-100) fL MCH 29 (26-34) pg MCHC 32 (32-36) gm/dL RDW Coeff of Harvinder 12.7 (11.5-15.5) % Plt Count 159 (140-440) K/uL Neut % (Auto) 73.5 H (42.0-72.0) % Lymph % (Auto) 10.1 L (20-44) % [place]y % (Auto) 11.7 H (0.0-11.0) % Eos % (Auto) 3.5 (0.0-7.0) % Baso % (Auto) 0.4 (0.0-3.0) % Neut # (Auto) 5.30 (1.7-7.0) K/uL Lymph # (Auto) 0.70 L (0.90-2.90) K/uL Kenedy # (Auto) 0.80 (0.00-0.90) K/UL Eos # (Auto) 0.25 (0.00-0.50) K/uL Baso # (Auto) 0.03 (0.00-0.30) K/uL Abs Immat Gran (auto) 0.06 (0.00-0.30) K/uL Imm/Tot Granulo (auto) 0.8 % Sodium 137 (135-149) mmol/L Potassium 3.9 (3.6-5.1) mmol/L Chloride 96 (96-114) mmol/L Carbon Dioxide 30 (20-32) mmol/L Anion Gap 11 (7-15) mEq/L BUN 18 (7-30) mg/dL Creatinine 1.1 (0.5-1.5) mg/dL Estimated Creat Clear 54.38 Estimated GFR 67 ml/min Glucose 177 H (60-115) mg/dL Lactate 2.7 H 1.8 (0.5-1.9) mmol/L Calcium 8.6 (8.4-10.6) mg/dL Total Bilirubin 1.1 (0.1-1.5) mg/dL Direct Bilirubin 0.2 (0.0-0.5) mg/dL AST 29 (12-35) U/L ALT 26 (4-50) U/L Alkaline Phosphatase 53 (40-150) U/L POC Troponin I High Sensi 12.8 (2.9-28.0) pg/mL C-Reactive Protein 5.7 H (0.5-1.0) mg/dL Total Protein 6.6 (6.0-8.3) g/dL Albumin 4.1 (3.3-5.0) g/dL Urine Color Yellow (Yellow) Urine Appearance Slightly Cloudy A (Clear) Urine pH 6.5 (5.0-8.5) Ur Specific Lilly 1.025 (1.000-1.030) Urine Protein 3+ A (Negative) Urine Glucose (UA) Negative (Negative) Urine Ketones 1+ A (Negative) Urine Blood Negative (Negative) Urine Nitrite Negative (Negative) Urine Bilirubin Negative (Negative) Urine Urobilinogen 0.2 (0.2-1.0) Ur Leukocyte Esterase Negative (Negative) Urine RBC 0-2 (0-2) Urine WBC 0-2 (0-5) Ur Squamous Epith Cells None (None-Few) Urine Bacteria None (None) SARS-CoV-2 (PCR) Negative SARS-CoV-2 (Negative) Influenza Type A (PCR) Negative PCR FLU A (Negative) Influenza Type B (PCR) Negative PCR FLU B (Negative) RSV (PCR) Negative PCR RSV (Negative) <Srini Staley MD - Last Filed: 05/05/25 17:51> Discharge Plan Discharge Clinical Impression: Weakness, Dehydration <Mili Waldrop MD - Last Filed: 05/06/25 10:05> Patient Disposition: Home w/ Parent or Adult <Mili Waldrop MD - Last Filed: 05/06/25 10:05> Condition: Stable <Mili Waldrop MD - Last Filed: 05/06/25 10:05> Instructions: Dehydration (ED) <Mili Waldrop MD - Last Filed: 05/06/25 10:05> Additional Instructions: Exam and labs here today suggest dehydration. Patient hydrated with 1 L saline. No other significant findings. Should be re-evaluated in the next day or 2 to make sure he is getting back to baseline. Return as needed for new symptoms such as high fevers, vomiting, diarrhea, focal neurologic changes etcetera. <Mili Waldrop MD - Last Filed: 05/06/25 10:05> Prescriptions: No Action insulin lispro [Admelog SoloStar U-100 Insulin] 100 unit/mL insulin pen 3 unit subcut TID aspirin [Adult Aspirin Regimen] 81 mg tablet,delayed release (DR/EC) 81 mg PO DAILY atorvastatin 10 mg tablet 10 mg PO HS insulin glargine [Basaglar KwikPen U-100 Insulin] 100 unit/mL (3 mL) insulin pen 12 unit subcut HS escitalopram oxalate 10 mg tablet 10 mg PO DAILY furosemide 20 mg tablet 20 mg PO DAILY lisinopril 20 mg tablet 20 mg PO DAILY metoprolol tartrate 100 mg tablet 100 mg PO BID multivitamin [Daily Multi-Vitamin] Tablet 1 tab PO DAILY quetiapine [Seroquel] 200 mg tablet 200 mg PO BID cyanocobalamin (vitamin B-12) 100 mcg tablet 100 mcg PO DAILY potassium chloride [Klor-Con] 20 mEq packet 20 meq PO DAILY metformin 1,000 mg tablet extended release 24hr 1,000 mg PO BIDWM cyanocobalamin (vitamin B-12) 1,000 mcg tablet 1,000 mcg PO DAILY metformin 500 mg tablet extended release 24 hr PO multivitamin with folic acid [Daily-Denisha (with folic acid)] 400 mcg tablet 1 tab PO QPM potassium chloride 20 mEq tablet extended release 20 meq PO DAILY <Mili Waldrop MD - Last Filed: 05/06/25 10:05> Follow Up/Referrals: Nathalia Smiley MD [Primary Care Provider, Family Practice] <Mili Waldrop MD - Last Filed: 05/06/25 10:05> Stand Alone Forms: MyHealth Info Instructions <Mili Waldrop MD - Last Filed: 05/06/25 10:05>
[2025-05-05] MEDS: 0.9 % SODIUM CHLORIDE 500 ML 500 ML IV ×2 (14:30→17:20)
[2025-05-05 14:38] LABS: Lactate Sepsis w/Reflex* 2.7 mmol/L (0.5-1.9)
[2025-05-05 14:43] LABS: Hematocrit* 36.1 % (37.0-53.0); Hemoglobin* 11.6 gm/dL (13.5-17.5); Immature Granulocytes Abs Auto 0.06 K/uL (0.00-0.30); Immature Granulocytes Pct Auto 0.8 %; Mean Corpuscular HGB Conc 32 gm/dL (32-36); Mean Corpuscular Hemoglobin 29 pg (26-34); Mean Corpuscular Volume 89 fL (80-100); RDW Coefficient of Variation % 12.7 % (11.5-15.5); Red Blood Count* 4.04 m/uL (4.30-5.90); White Blood Count* 7.21 K/uL (4.50-11.00)
[2025-05-05 14:54] LABS: Albumin* 4.1 g/dL (3.3-5.0); Chloride* 96 mmol/L (96-114)
[2025-05-05 14:55] LABS: Lymphocytes Absolute Auto 0.70 K/uL (0.90-2.90); Potassium* 3.9 mmol/L (3.6-5.1); Sodium* 137 mmol/L (135-149)
[2025-05-05 14:56] LABS: Slide Review Reflex No
[2025-05-05 14:57] LABS: Blood Urea Nitrogen* 18 mg/dL (7-30); Creatinine* 1.1 mg/dL (0.5-1.5); Est. Creatinine Clearance* 54.38; Estimated Glomerular Filt Rate 67 ml/min
[2025-05-05 14:58] LABS: Alanine Aminotransferase* 26 U/L (4-50); Alkaline Phosphatase* 53 U/L (40-150); Anion Gap 11 mEq/L (7-15); Aspartate Amino Transferase* 29 U/L (12-35); Bilirubin Direct* 0.2 mg/dL (0.0-0.5); Bilirubin Total* 1.1 mg/dL (0.1-1.5); Calcium* 8.6 mg/dL (8.4-10.6); Carbon Dioxide* 30 mmol/L (20-32); Glucose* 177 mg/dL (60-115); Total Protein* 6.6 g/dL (6.0-8.3)
[2025-05-05 15:43] LABS: PCR FLU A Negative PCR FLU A (Negative); PCR FLU B Negative PCR FLU B (Negative); PCR RSV Negative PCR RSV (Negative); SARS PCR* Negative SARS-CoV-2 (Negative)
[2025-05-05 16:00] VITALS: BP 141/63; PULSE 60; RESP 18; O2SAT 96
[2025-05-05 16:19] LABS: Appearance Urine Slightly Cloudy (Clear)
[2025-05-05 16:30] VITALS: BP 143/60; PULSE 59; RESP 20; O2SAT 96
[2025-05-05 16:43] LABS: Lactate Sepsis 2 Hour 1.8 mmol/L (0.5-1.9)
[2025-05-05 17:00] VITALS: BP 144/61; PULSE 60; RESP 14; O2SAT 95
== END 2025-05-05 19:39 | disposition home or self-care (01) ==
PROVIDERS: Emergency Medicine; Emergency Provider Emergency Medicine; PCP Family Medicine
DX: R53.1 Weakness (principal); E86.0 Dehydration; F03.90 Unspecified dementia, unspecified severity, without behavioral disturbance, psychotic disturbance, mood disturbance, and anxiety
CPT/HCPCS: 36415; 80048; 80076; 81001; 83605; 84484; 85025; 86140; 87631; 93005; 96360; 99284; J7030

== ENCOUNTER 2025-05-05 19:33 | Outpatient (CLI) | payer BC, SELFPAY | END 2025-05-05 19:34 | disposition home or self-care (01) | LOC: AMB 05-09 18:19 | PROVIDERS: PCP Family Medicine; Visit Provider Student in an Organized Health Care Education/Training Program | DX: R53.1 Weakness (principal); E86.0 Dehydration | CPT/HCPCS: A0425; A0428 ==

== ENCOUNTER 2025-05-29 15:44 | Outpatient (CLI) | payer BC, SELFPAY | END 2025-05-29 15:45 | disposition home or self-care (01) | LOC: AMB 06-02 21:47 | PROVIDERS: PCP Family Medicine; Visit Provider Family Medicine | DX: R07.89 Other chest pain (principal) | CPT/HCPCS: A0425; A0427; A0428 ==

== ENCOUNTER 2025-05-29 16:19 | Emergency (ER) | payer BC, SELFPAY ==
[2025-05-29] VITALS (21 sets, daily range): BP systolic 135–207; BP diastolic 71–117; PULSE 83–192; RESP 13–22; TEMP 36.5; O2SAT 93–98
--- NOTE | 2025-05-29 16:47 | ED.GENADULT ---
HPI - General Adult General Chief complaint: Chest Pain Stated complaint: chest pain Time Seen by Provider: 05/29/25 16:31 History of Present Illness HPI narrative: Pt arrives via EMS for possible chest pain. Was observed by staff to be intermittently diaphoretic. Hx of dementia and schizophrenia. Is not able to meaningfully have conversation. Denies pain on arrival. Received aspirin 325mg en route. Pt has also been refusing all oral meds for staff. Resides at the [facility] in [facility]. 79-year-old man presenting to the emergency department concern of possible chest pain. Apparently intermittently over the course the day is been putting his hands to his chest and has also been intermittently diaphoretic. Seems to be gesturing to his feet when I am examining him which I interpreted that wanted his feet better covered by the blanket. With questions allowing for brief answers he is able to indicate that if the having any chest pain or shortness of breath. No abdominal pain. Related Data Home Medications ?Medication ?Instructions ?Recorded ?Confirmed aspirin 81 mg tablet,delayed 81 mg PO DAILY 10/28/24 12/14/24 release (Adult Aspirin Regimen) atorvastatin 10 mg tablet 10 mg PO HS 10/28/24 12/14/24 cyanocobalamin (vitamin B-12) 100 100 mcg PO DAILY 10/28/24 10/28/24 mcg tablet escitalopram oxalate 10 mg tablet 10 mg PO DAILY 10/28/24 12/14/24 furosemide 20 mg tablet 20 mg PO DAILY 10/28/24 12/14/24 insulin glargine 100 unit/mL (3 12 unit subcut HS 10/28/24 10/28/24 mL) subcutaneous pen (Basaglar KwikPen U-100 Insulin) insulin lispro 100 unit/mL 3 unit subcut TID 10/28/24 12/14/24 subcutaneous pen (Admelog SoloStar U-100 Insulin lispro) lisinopril 20 mg tablet 20 mg PO DAILY 10/28/24 12/14/24 metformin 1,000 mg tablet,extended 1,000 mg PO BIDWM 10/28/24 10/28/24 release 24hr (osmotic) metoprolol tartrate 100 mg tablet 100 mg PO BID 10/28/24 12/14/24 multivitamin (Daily Multi-Vitamin 1 tab PO DAILY 10/28/24 10/28/24 tablet) potassium chloride 20 mEq oral 20 meq PO DAILY 10/28/24 10/28/24 packet (Klor-Con) quetiapine 200 mg tablet (Seroquel) 200 mg PO BID 10/28/24 12/14/24 cyanocobalamin (vitamin B-12) 1,000 mcg PO DAILY 12/14/24 12/14/24 1,000 mcg tablet metformin 500 mg tablet,extended mg PO 12/14/24 release 24 hr multivitamin with folic acid 400 1 tab PO QPM 12/14/24 12/14/24 mcg tablet (Daily-Denisha (with folic acid)) potassium chloride 20 mEq 20 meq PO DAILY 12/14/24 12/14/24 tablet,extended release Previous Rx's ?Medication ?Instructions ?Recorded cephalexin 500 mg capsule 500 mg PO TID 7 days #21 caps 05/29/25 Allergies Allergy/AdvReac Type Severity Reaction Status Date / Time No Known Drug Allergies Allergy Verified 05/30/25 13:03 Review of Systems Status of ROS: Reports: unobtainable due to mental status (Complicated by dementia. Brief answers of the immediate) PFSH PFSH Social History Smoking Status: Unknown if ever smoked Exam Const: Vital Signs, click to edit/add: Vital Signs - 24 hr 05/29/25 16:24 05/29/25 16:28 05/29/25 16:29 Temperature 97.7 F Pulse Rate 89 86 Pulse Rate [Pulse Oximeter] 88 Respiratory Rate 18 Blood Pressure 139/81 Blood Pressure [Ri ght Upper Arm] 135/81 Pulse Oximetry 95 95 95 Oxygen Delivery Me thod Room Air 05/29/25 16:30 05/29/25 16:32 05/29/25 16:33 Temperature Pulse Rate 86 86 83 Pulse Rate [Pulse Oximeter] Respiratory Rate 18 13 Blood Pressure 172/71 H Blood Pressure [Ri ght Upper Arm] Pulse Oximetry 94 96 95 Oxygen Delivery Me thod 05/29/25 16:45 05/29/25 16:48 05/29/25 17:00 Temperature Pulse Rate 88 89 104 H Pulse Rate [Pulse Oximeter] Respiratory Rate Blood Pressure 157/117 H Blood Pressure [Ri ght Upper Arm] Pulse Oximetry 98 98 95 Oxygen Delivery Me thod 05/29/25 17:03 05/29/25 17:15 05/29/25 17:17 Temperature Pulse Rate 98 116 H 100 Pulse Rate [Pulse Oximeter] Respiratory Rate 22 Blood Pressure 185/98 H 161/105 H Blood Pressure [Ri ght Upper Arm] Pulse Oximetry 96 96 93 Oxygen Delivery Me thod 05/29/25 17:30 05/29/25 17:33 05/29/25 18:00 Temperature Pulse Rate 135 H 109 H 97 Pulse Rate [Pulse Oximeter] Respiratory Rate 20 20 Blood Pressure 207/104 H Blood Pressure [Ri ght Upper Arm] Pulse Oximetry 97 94 98 Oxygen Delivery Me thod 05/29/25 18:05 05/29/25 18:30 05/29/25 18:31 Temperature Pulse Rate 192 H 86 85 Pulse Rate [Pulse Oximeter] Respiratory Rate 15 Blood Pressure 149/79 H 157/86 H Blood Pressure [Ri ght Upper Arm] Pulse Oximetry 97 94 95 Oxygen Delivery Me thod 05/29/25 18:45 05/29/25 19:00 05/29/25 19:15 Temperature Pulse Rate 85 83 84 Pulse Rate [Pulse Oximeter] Respiratory Rate 15 Blood Pressure Blood Pressure [Ri ght Upper Arm] Pulse Oximetry 93 94 96 Oxygen Delivery Me thod Course Vital Signs Vital signs: Initial Vital Signs Temperature 97.7 F 05/29/25 16:24 Temperature Source Temporal Artery Scan 05/29/25 16:24 Pulse Rate 88 05/29/25 16:24 Pulse Rhythm Regular 05/29/25 16:24 Pulse Strength 3+ Normal 05/29/25 16:24 Respiratory Rate 18 05/29/25 16:24 Blood Pressure 135/81 05/29/25 16:24 Blood Pressure Mean 99 05/29/25 16:24 Blood Pressure Position Sitting 05/29/25 16:24 Pulse Oximetry 95 05/29/25 16:24 Oxygen Delivery Method Room Air 05/29/25 16:24 Vital Signs Temperature 97.7 F 05/29/25 16:24 Pulse Rate 88 05/29/25 16:24 Respiratory Rate 18 05/29/25 16:24 Blood Pressure 135/81 05/29/25 16:24 Pulse Oximetry 95 05/29/25 16:24 Oxygen Delivery Method Room Air 05/29/25 16:24 Temperature 97.7 F 05/29/25 16:24 Pulse Rate 84 05/29/25 19:15 Respiratory Rate 15 05/29/25 19:00 Blood Pressure 157/86 H 05/29/25 18:31 Pulse Oximetry 96 05/29/25 19:15 Oxygen Delivery Method Room Air 05/29/25 16:24 Medications Administered Medications: Discontinued Medications Generic Name Dose Route Start Last Admin Trade Name Matt PRN Reason Stop Dose Admin Lorazepam 1 mg 05/29/25 17:25 05/29/25 17:31 Lorazepam 2 Mg/Ml Inj IM 05/29/25 17:26 1 mg ONCE ONE Administration Quetiapine Fumarate 200 mg 05/29/25 17:22 05/29/25 20:05 Quetiapine 100 Mg Tablet PO 05/29/25 17:23 Not Given ONCE ONE Medical Decision Making MDM Narrative Medical decision making narrative: Nursing comes later to me as Mr. Horan has been crying out in the room. Apparently has been experiencing leg cramps. Suspicion is that this actually is what has been interpreted as pain, specifically chest pain, at place of residence. Will check chemistry is with regard to leg cramps in particular. Look for cardiac event. Assisted by nursing with stretching of his legs. Also given a dose of lorazepam. Is willing to take his evening Seroquel. Monitored over time in the emergency department. Labs generally reassuring. Low normal magnesium. Troponins are in low indeterminate range and flat on repeat. Urine however does look to be infected. Given IM Rocephin in the emergency department. With treatment above, is calm, more comfortable. Resting. Transported back to [facility] via ambulance/EMS transport. See patient discharge plan for further discussion Recommendations would be to focus on hydration. Please discuss<del>ed</del> with care team potential benefit of magnesium supplementation or other for muscle cramps that were apparent here today. Received a dose of Rocephin here in the emergency department and will be continued on cephalexin which is sent to your pharmacy. You also received your 200 mg of quetiapine and a singular dosing of lorazepam to help with the muscle spasms in your legs. Urine culture will be pending here and we will contact you if changes need to be made to treatment. Medical Records Medical records reviewed: Yes I reviewed the patient's medical records Lab Data Lab results reviewed: Yes I reviewed the patient's lab results Labs: Lab Results 05/29/25 05/29/25 05/29/25 Range/Units 17:05 17:40 17:45 WBC 9.91 (4.50-11.00) K/uL RBC 4.23 L (4.30-5.90) m/uL Hgb 11.9 L (13.5-17.5) gm/dL Hct 37.2 (37.0-53.0) % MCV 88 (80-100) fL MCH 28 (26-34) pg MCHC 32 (32-36) gm/dL RDW Coeff of Harvinder 13.4 (11.5-15.5) % Plt Count 234 (140-440) K/uL Neut % (Auto) 72.5 H (42.0-72.0) % Lymph % (Auto) 13.8 L (20-44) % Wilcox % (Auto) 12.4 H (0.0-11.0) % Eos % (Auto) 0.6 (0.0-7.0) % Baso % (Auto) 0.5 (0.0-3.0) % Neut # (Auto) 7.20 H (1.7-7.0) K/uL Lymph # (Auto) 1.40 (0.90-2.90) K/uL Wilcox # (Auto) 1.20 H (0.00-0.90) K/UL Eos # (Auto) 0.06 (0.00-0.50) K/uL Baso # (Auto) 0.05 (0.00-0.30) K/uL Abs Immat Gran (auto) 0.02 (0.00-0.30) K/uL Imm/Tot Granulo (auto) 0.2 % Sodium 136 (135-149) mmol/L Potassium 4.0 (3.6-5.1) mmol/L Chloride 99 (96-114) mmol/L Carbon Dioxide 29 (20-32) mmol/L Anion Gap 8 (7-15) mEq/L BUN 17 (7-30) mg/dL Creatinine 1.1 (0.5-1.5) mg/dL Estimated GFR 67 ml/min Glucose 167 H (60-115) mg/dL Calcium 9.1 (8.4-10.6) mg/dL Magnesium 1.8 (1.5-2.6) mg/dL Troponin I 0.05 H (0.01-0.04) ng/mL POC Troponin I High Sensi 38.0 H* (2.9-28.0) pg/mL Urine Color (Yellow) Urine Appearance (Clear) Urine pH (5.0-8.5) Ur Specific [place] (1.000-1.030) Urine Protein (Negative) Urine Glucose (UA) (Negative) Urine Ketones (Negative) Urine Blood (Negative) Urine Nitrite (Negative) Urine Bilirubin (Negative) Urine Urobilinogen (0.2-1.0) Ur Leukocyte Esterase (Negative) Urine RBC (0-2) Urine WBC (0-5) Ur Squamous Epith Cells (None-Few) Urine Bacteria (None) SARS-CoV-2 (PCR) Negative SARS-CoV-2 (Negative) Influenza Type A (PCR) Negative PCR FLU A (Negative) Influenza Type B (PCR) Negative PCR FLU B (Negative) RSV (PCR) Negative PCR RSV (Negative) Lab Acknowledgement 05/29/25 05/29/25 Range/Units 18:25 18:31 WBC (4.50-11.00) K/uL RBC (4.30-5.90) m/uL Hgb (13.5-17.5) gm/dL Hct (37.0-53.0) % MCV (80-100) fL MCH (26-34) pg MCHC (32-36) gm/dL RDW Coeff of Harvinder (11.5-15.5) % Plt Count (140-440) K/uL Neut % (Auto) (42.0-72.0) % Lymph % (Auto) (20-44) % Wilcox % (Auto) (0.0-11.0) % Eos % (Auto) (0.0-7.0) % Baso % (Auto) (0.0-3.0) % Neut # (Auto) (1.7-7.0) K/uL Lymph # (Auto) (0.90-2.90) K/uL Wilcox # (Auto) (0.00-0.90) K/UL Eos # (Auto) (0.00-0.50) K/uL Baso # (Auto) (0.00-0.30) K/uL Abs Immat Gran (auto) (0.00-0.30) K/uL Imm/Tot Granulo (auto) % Sodium (135-149) mmol/L Potassium (3.6-5.1) mmol/L Chloride (96-114) mmol/L Carbon Dioxide (20-32) mmol/L Anion Gap (7-15) mEq/L BUN (7-30) mg/dL Creatinine (0.5-1.5) mg/dL Estimated GFR ml/min Glucose (60-115) mg/dL Calcium (8.4-10.6) mg/dL Magnesium (1.5-2.6) mg/dL Troponin I (0.01-0.04) ng/mL POC Troponin I High Sensi (2.9-28.0) pg/mL Urine Color Yellow (Yellow) Urine Appearance Clear (Clear) Urine pH 6.0 (5.0-8.5) Ur Specific [place] >= 1.030 (1.000-1.030) Urine Protein 3+ A (Negative) Urine Glucose (UA) Negative (Negative) Urine Ketones 1+ A (Negative) Urine Blood 2+ A (Negative) Urine Nitrite Negative (Negative) Urine Bilirubin 1+ A (Negative) Urine Urobilinogen 0.2 (0.2-1.0) Ur Leukocyte Esterase Negative (Negative) Urine RBC 10-25 A (0-2) Urine WBC >100 A (0-5) Ur Squamous Epith Cells None (None-Few) Urine Bacteria Many A (None) SARS-CoV-2 (PCR) (Negative) Influenza Type A (PCR) (Negative) Influenza Type B (PCR) (Negative) RSV (PCR) (Negative) Lab Acknowledgement Test Added ECG Data Attestation: I personally reviewed and interpreted this ECG as follows: (Normal sinus rhythm. Right bundle-branch block. Rate of 86. Similar to prior) Discharge Plan Discharge Clinical Impression: Muscle spasm, Urinary tract infection Patient Disposition: Home w/ Parent or Adult Condition: Improved Additional Instructions: Recommendations would be to focus on hydration. Please discuss<del>ed</del> with care team potential benefit of magnesium supplementation or other for muscle cramps that were apparent here today. Received a dose of Rocephin here in the emergency department and will be continued on cephalexin which is sent to your pharmacy. You also received your 200 mg of quetiapine and a singular dosing of lorazepam to help with the muscle spasms in your legs. Urine culture will be pending here and we will contact you if changes need to be made to treatment. Prescriptions: New cephalexin 500 mg capsule 500 mg PO TID 7 Days Qty: 21 0RF No Action insulin lispro [Admelog SoloStar U-100 Insulin] 100 unit/mL insulin pen 3 unit subcut TID aspirin [Adult Aspirin Regimen] 81 mg tablet,delayed release (DR/EC) 81 mg PO DAILY atorvastatin 10 mg tablet 10 mg PO HS insulin glargine [Basaglar KwikPen U-100 Insulin] 100 unit/mL (3 mL) insulin pen 12 unit subcut HS escitalopram oxalate 10 mg tablet 10 mg PO DAILY furosemide 20 mg tablet 20 mg PO DAILY lisinopril 20 mg tablet 20 mg PO DAILY metoprolol tartrate 100 mg tablet 100 mg PO BID multivitamin [Daily Multi-Vitamin] Tablet 1 tab PO DAILY quetiapine [Seroquel] 200 mg tablet 200 mg PO BID cyanocobalamin (vitamin B-12) 100 mcg tablet 100 mcg PO DAILY potassium chloride [Klor-Con] 20 mEq packet 20 meq PO DAILY metformin 1,000 mg tablet extended release 24hr 1,000 mg PO BIDWM cyanocobalamin (vitamin B-12) 1,000 mcg tablet 1,000 mcg PO DAILY metformin 500 mg tablet extended release 24 hr PO multivitamin with folic acid [Daily-Denisha (with folic acid)] 400 mcg tablet 1 tab PO QPM potassium chloride 20 mEq tablet extended release 20 meq PO DAILY Follow Up/Referrals: Nathalia Smiley MD [Primary Care Provider, Family Practice] Stand Alone Forms: [email or web address] Info Instructions
[2025-05-29 18:17] LABS: Chloride* 99 mmol/L (96-114); Hematocrit* 37.2 % (37.0-53.0); Hemoglobin* 11.9 gm/dL (13.5-17.5); Immature Granulocytes Abs Auto 0.02 K/uL (0.00-0.30); Immature Granulocytes Pct Auto 0.2 %; Lymphocytes Absolute Auto 1.40 K/uL (0.90-2.90); Mean Corpuscular HGB Conc 32 gm/dL (32-36); Mean Corpuscular Hemoglobin 28 pg (26-34); Mean Corpuscular Volume 88 fL (80-100); RDW Coefficient of Variation % 13.4 % (11.5-15.5); Red Blood Count* 4.23 m/uL (4.30-5.90); Slide Review Reflex No; White Blood Count* 9.91 K/uL (4.50-11.00)
[2025-05-29 18:18] LABS: Potassium* 4.0 mmol/L (3.6-5.1); Sodium* 136 mmol/L (135-149)
[2025-05-29 18:21] LABS: Anion Gap 8 mEq/L (7-15); Blood Urea Nitrogen* 17 mg/dL (7-30); Calcium* 9.1 mg/dL (8.4-10.6); Carbon Dioxide* 29 mmol/L (20-32); Creatinine* 1.1 mg/dL (0.5-1.5); Estimated Glomerular Filt Rate 67 ml/min; Glucose* 167 mg/dL (60-115)
[2025-05-29 18:31] LABS: PCR FLU A Negative PCR FLU A (Negative); PCR FLU B Negative PCR FLU B (Negative); PCR RSV Negative PCR RSV (Negative); SARS PCR* Negative SARS-CoV-2 (Negative)
[2025-05-29 18:41] LABS: Appearance Urine Clear (Clear)
== END 2025-05-29 19:00 | disposition home or self-care (01) ==
PROVIDERS: Emergency Provider Family Medicine; PCP Family Medicine
DX: M62.838 Other muscle spasm (principal); N39.0 Urinary tract infection, site not specified
CPT/HCPCS: 36415; 80048; 81001; 83735; 84484; 85025; 87086; 87631; 96372; 99284; J2060

== ENCOUNTER 2025-05-29 20:31 | Outpatient (CLI) | payer BC, SELFPAY | END 2025-05-29 20:32 | disposition home or self-care (01) | LOC: AMB 06-02 22:02 | PROVIDERS: PCP Family Medicine; Visit Provider Student in an Organized Health Care Education/Training Program | DX: R25.2 Cramp and spasm (principal); N39.0 Urinary tract infection, site not specified; F03.90 Unspecified dementia, unspecified severity, without behavioral disturbance, psychotic disturbance, mood disturbance, and anxiety | CPT/HCPCS: A0425; A0428 ==

== ENCOUNTER 2025-05-30 12:02 | Outpatient (CLI) | payer BC, SELFPAY | END 2025-05-30 12:03 | disposition home or self-care (01) | LOC: AMB 06-11 13:08 | PROVIDERS: PCP Family Medicine; Visit Provider Family Medicine | DX: F91.8 Other conduct disorders (principal); N39.0 Urinary tract infection, site not specified | CPT/HCPCS: A0425; A0427 ==

== ENCOUNTER 2025-05-30 12:50 | Emergency (ER) | payer BC, SELFPAY ==
[2025-05-30 13:00] VITALS: BP 110/83; PULSE 124; RESP 18; TEMP 36.6; O2SAT 98
--- NOTE | 2025-05-30 13:14 | ED.GENADULT ---
HPI - General Adult General Chief complaint: Altered Mental Status Stated complaint: UTI Time Seen by Provider: 05/30/25 13:05 History of Present Illness HPI narrative: [age] white male who is apparently in memory care at [facility], presents with concern about agitation. He was diagnosed with the UTI yesterday. In the ambulance and here in the ER he has been cooperative and confused but that is his baseline by report. He had a UTI and was given Rocephin yesterday started on Keflex. At this point the urine culture still pending. Patient has no fever his vital signs look unremarkable his pulse is little elevated 124 initially retested about [id number]. He does not respond to questioning but he appears awake alert. He is moving all extremities. Related Data Home Medications ?Medication ?Instructions ?Recorded ?Confirmed aspirin 81 mg tablet,delayed 81 mg PO DAILY 10/28/24 12/14/24 release (Adult Aspirin Regimen) atorvastatin 10 mg tablet 10 mg PO HS 10/28/24 12/14/24 cyanocobalamin (vitamin B-12) 100 100 mcg PO DAILY 10/28/24 10/28/24 mcg tablet escitalopram oxalate 10 mg tablet 10 mg PO DAILY 10/28/24 12/14/24 furosemide 20 mg tablet 20 mg PO DAILY 10/28/24 12/14/24 insulin glargine 100 unit/mL (3 12 unit subcut HS 10/28/24 10/28/24 mL) subcutaneous pen (Basaglar KwikPen U-100 Insulin) insulin lispro 100 unit/mL 3 unit subcut TID 10/28/24 12/14/24 subcutaneous pen (Admelog SoloStar U-100 Insulin lispro) lisinopril 20 mg tablet 20 mg PO DAILY 10/28/24 12/14/24 metformin 1,000 mg tablet,extended 1,000 mg PO BIDWM 10/28/24 10/28/24 release 24hr (osmotic) metoprolol tartrate 100 mg tablet 100 mg PO BID 10/28/24 12/14/24 multivitamin (Daily Multi-Vitamin 1 tab PO DAILY 10/28/24 10/28/24 tablet) potassium chloride 20 mEq oral 20 meq PO DAILY 10/28/24 10/28/24 packet (Klor-Con) quetiapine 200 mg tablet (Seroquel) 200 mg PO BID 10/28/24 12/14/24 cyanocobalamin (vitamin B-12) 1,000 mcg PO DAILY 12/14/24 12/14/24 1,000 mcg tablet metformin 500 mg tablet,extended mg PO 12/14/24 release 24 hr multivitamin with folic acid 400 1 tab PO QPM 12/14/24 12/14/24 mcg tablet (Daily-Denisha (with folic acid)) potassium chloride 20 mEq 20 meq PO DAILY 12/14/24 12/14/24 tablet,extended release Previous Rx's ?Medication ?Instructions ?Recorded cephalexin 500 mg capsule 500 mg PO TID 7 days #21 caps 05/29/25 Allergies Allergy/AdvReac Type Severity Reaction Status Date / Time No Known Drug Allergies Allergy Verified 05/30/25 13:03 Review of Systems Status of ROS: Reports: unobtainable due to medical condition PFSH PFS Social History Smoking Status: Unknown if ever smoked Exam Narrative: Exam Narrative: Objective: Patient's vital signs look reassuring other than his pulse retested about 110. He is awake alert in a memory care unit by his by ambulance history. He has been cooperative here in the ER and does appear agitated. Reviewing his lab studies he did have a UTI yesterday. Culture and pending sensitivities pending Const: Vital Signs, click to edit/add: Vital Signs - 24 hr 05/30/25 13:00 Temperature 97.9 F Pulse Rate [Right Pulse Oximeter] 124 H Respiratory Rate 18 Blood Pressure [Ri ght Upper Arm] 110/83 Pulse Oximetry 98 Oxygen Delivery Me thod Room Air Course Vital Signs Vital signs: Initial Vital Signs Temperature 97.9 F 05/30/25 13:00 Temperature Source Temporal Artery Scan 05/30/25 13:00 Pulse Rate 124 H 05/30/25 13:00 Pulse Rhythm Regular 05/30/25 13:00 Pulse Strength 3+ Normal 05/30/25 13:00 Respiratory Rate 18 05/30/25 13:00 Blood Pressure 110/83 05/30/25 13:00 Blood Pressure Mean 92 05/30/25 13:00 Blood Pressure Position Semi-Fowlers 05/30/25 13:00 Pulse Oximetry 98 05/30/25 13:00 Oxygen Delivery Method Room Air 05/30/25 13:00 Vital Signs Temperature 97.9 F 05/30/25 13:00 Pulse Rate 124 H 05/30/25 13:00 Respiratory Rate 18 05/30/25 13:00 Blood Pressure 110/83 05/30/25 13:00 Pulse Oximetry 98 05/30/25 13:00 Oxygen Delivery Method Room Air 05/30/25 13:00 Temperature 97.9 F 05/30/25 13:00 Pulse Rate 124 H 05/30/25 13:00 Respiratory Rate 18 05/30/25 13:00 Blood Pressure 110/83 05/30/25 13:00 Pulse Oximetry 98 05/30/25 13:00 Oxygen Delivery Method Room Air 05/30/25 13:00 Medications Administered Medications: Generic Name Dose Route Start Last Admin Trade Name Freq PRN Reason Stop Dose Admin Ceftriaxone Sodium 1 gm/ 100 mls @ 200 mls/hr 05/30/25 13:13 05/30/25 13:22 Sodium Chloride IVPB 05/30/25 13:42 200 mls/hr ONCE ONE Administration Medical Decision Making MDM Narrative Medical decision making narrative: 79-year-old male with recent UTI with concern for agitation. At this point he does not appear agitated. I think he may just be early in the process of treating his UTI which could certainly cause some mental status changes. He appears to be at his baseline now by 5 staff report. I think it be reasonable to give another dose of Rocephin. Will along go back to his residence. They can discuss more additional care measures if he needs it more advanced care. At this point however it appears he could return to his per his place of residence. Discharge Plan Discharge Clinical Impression: Urinary tract infection, Dementia Patient Disposition: Home w/ Parent or Adult Condition: Stable Additional Instructions: Recommend continue antibiotics, recommend social service consult if different living arrangements needed. At this point he appears hemodynamically and medically stable to return to his residence. Activity Level: Light activity Discharge Diet: Regular Prescriptions: No Action cephalexin 500 mg capsule 500 mg PO TID 7 Days Qty: 21 0RF insulin lispro [Admelog SoloStar U-100 Insulin] 100 unit/mL insulin pen 3 unit subcut TID aspirin [Adult Aspirin Regimen] 81 mg tablet,delayed release (DR/EC) 81 mg PO DAILY atorvastatin 10 mg tablet 10 mg PO HS insulin glargine [Thomas JeanPen U-100 Insulin] 100 unit/mL (3 mL) insulin pen 12 unit subcut HS escitalopram oxalate 10 mg tablet 10 mg PO DAILY furosemide 20 mg tablet 20 mg PO DAILY lisinopril 20 mg tablet 20 mg PO DAILY metoprolol tartrate 100 mg tablet 100 mg PO BID multivitamin [Daily Multi-Vitamin] Tablet 1 tab PO DAILY quetiapine [Seroquel] 200 mg tablet 200 mg PO BID cyanocobalamin (vitamin B-12) 100 mcg tablet 100 mcg PO DAILY potassium chloride [Klor-Con] 20 mEq packet 20 meq PO DAILY metformin 1,000 mg tablet extended release 24hr 1,000 mg PO BIDWM cyanocobalamin (vitamin B-12) 1,000 mcg tablet 1,000 mcg PO DAILY metformin 500 mg tablet extended release 24 hr PO multivitamin with folic acid [Daily-Denisha (with folic acid)] 400 mcg tablet 1 tab PO QPM potassium chloride 20 mEq tablet extended release 20 meq PO DAILY Follow Up/Referrals: Nathalia Smiley MD [Primary Care Provider, Family Practice] Stand Alone Forms: [facility] Info Instructions
[2025-05-30] MEDS: cefTRIAXone 1 GM in 0.9 % SODIUM CHLORIDE Mini-bag 100 ML IVPB (13:22)
[2025-05-30 14:29] VITALS: BP 136/89; PULSE 90; RESP 16; O2SAT 94
== END 2025-05-30 14:30 | disposition home or self-care (01) ==
PROVIDERS: Emergency Provider Family Medicine; PCP Family Medicine
DX: N39.0 Urinary tract infection, site not specified (principal); F03.911 Unspecified dementia, unspecified severity, with agitation
CPT/HCPCS: 96365; 99284; J0696

== ENCOUNTER 2025-05-30 14:15 | Outpatient (CLI) | payer BC, SELFPAY | END 2025-05-30 14:16 | disposition home or self-care (01) | LOC: AMB 06-02 22:17 | PROVIDERS: PCP Family Medicine; Visit Provider Family Medicine | DX: F03.90 Unspecified dementia, unspecified severity, without behavioral disturbance, psychotic disturbance, mood disturbance, and anxiety (principal) | CPT/HCPCS: A0425; A0428 ==

== ENCOUNTER 2025-05-31 19:26 | Outpatient (CLI) | payer BC, SELFPAY | END 2025-05-31 19:27 | disposition home or self-care (01) | LOC: AMB 06-02 23:36 | PROVIDERS: PCP Family Medicine; Visit Provider Emergency Medicine Emergency Medical Services | DX: R06.09 Other forms of dyspnea (principal); F91.9 Conduct disorder, unspecified | CPT/HCPCS: A0425; A0427 ==

== ENCOUNTER 2025-05-31 20:08 | Emergency (ER) | payer BC, SELFPAY ==
[2025-05-31 20:15] VITALS: BP 174/74; PULSE 92; RESP 16; TEMP 36.8; O2SAT 96
--- NOTE | 2025-05-31 20:53 | ED.GENADULT ---
HPI - General Adult General Chief complaint: Unspecified Complaint, Adult Stated complaint: Weakness Time Seen by Provider: 05/31/25 20:31 History of Present Illness HPI narrative: Third call to EMS in three days from [facility] per EMS. Diagnosed with UTI on , just got Rx and started this afternoon 1500. Call to EMS with concern: trembling, sweating. Has a guardian. EMS reported initial HR 120' s, did receive 250ml NS. Apparently can be combative and is overall nonverbal. 79-year-old man returning to the emergency department. Was seen by myself 2 days ago diagnosed with the urinary tract infection with increased agitation. In particular though appear to be experiencing muscle cramps which we did witness here in the emergency department. He did receive a dose of Rocephin at that time and finally started his cephalexin this middle afternoon. Apparently was reported to be trembling and sweating again today. This is how he had presented prior as well. Related Data Home Medications ?Medication ?Instructions ?Recorded ?Confirmed aspirin 81 mg tablet,delayed 81 mg PO DAILY 10/28/24 12/14/24 release (Adult Aspirin Regimen) atorvastatin 10 mg tablet 10 mg PO HS 10/28/24 12/14/24 cyanocobalamin (vitamin B-12) 100 100 mcg PO DAILY 10/28/24 10/28/24 mcg tablet escitalopram oxalate 10 mg tablet 10 mg PO DAILY 10/28/24 12/14/24 furosemide 20 mg tablet 20 mg PO DAILY 10/28/24 12/14/24 insulin glargine 100 unit/mL (3 12 unit subcut HS 10/28/24 10/28/24 mL) subcutaneous pen (Basaglar KwikPen U-100 Insulin) insulin lispro 100 unit/mL 3 unit subcut TID 10/28/24 12/14/24 subcutaneous pen (Admelog SoloStar U-100 Insulin lispro) lisinopril 20 mg tablet 20 mg PO DAILY 10/28/24 12/14/24 metformin 1,000 mg tablet,extended 1,000 mg PO BIDWM 10/28/24 10/28/24 release 24hr (osmotic) metoprolol tartrate 100 mg tablet 100 mg PO BID 10/28/24 12/14/24 multivitamin (Daily Multi-Vitamin 1 tab PO DAILY 10/28/24 10/28/24 tablet) potassium chloride 20 mEq oral 20 meq PO DAILY 10/28/24 10/28/24 packet (Klor-Con) quetiapine 200 mg tablet (Seroquel) 200 mg PO BID 10/28/24 12/14/24 cyanocobalamin (vitamin B-12) 1,000 mcg PO DAILY 12/14/24 12/14/24 1,000 mcg tablet metformin 500 mg tablet,extended mg PO 12/14/24 release 24 hr multivitamin with folic acid 400 1 tab PO QPM 12/14/24 12/14/24 mcg tablet (Daily-Denisha (with folic acid)) potassium chloride 20 mEq 20 meq PO DAILY 12/14/24 12/14/24 tablet,extended release Previous Rx's ?Medication ?Instructions ?Recorded cephalexin 500 mg capsule 500 mg PO TID 7 days #21 caps 05/29/25 Allergies Allergy/AdvReac Type Severity Reaction Status Date / Time No Known Drug Allergies Allergy Verified 05/30/25 13:03 Review of Systems Status of ROS: Reports: unobtainable due to mental status (Hard of hearing and can answer some questions in immediate with yes or no) PFSH [facility] Social History Smoking Status: Unknown if ever smoked Exam Narrative: Exam Narrative: Pleasant. Is in no distress or apparent discomfort at this time. Appears to be somewhat hard of hearing. Not able to answer many questions. Resting tremor more evident in the right hand. Heart in elevated rate and regular rhythm. Cranial nerves 2-12 look to be intact. Breathing easily. Lungs are clear. Abdomen is soft nontender. Const: Vital Signs, click to edit/add: Vital Signs - 24 hr 05/31/25 20:15 05/31/25 21:56 Temperature 98.2 F Pulse Rate [Right Pulse Oximeter] 92 90 Respiratory Rate 16 16 Blood Pressure [Le ft Upper Arm] 174/74 H 121/66 Pulse Oximetry 96 91 Oxygen Delivery Me thod Room Air Room Air Documenting provider has reviewed patient's vital signs: yes Course Vital Signs Vital signs: Initial Vital Signs Temperature 98.2 F 05/31/25 20:15 Temperature Source Temporal Artery Scan 05/31/25 20:15 Pulse Rate 92 05/31/25 20:15 Respiratory Rate 16 05/31/25 20:15 Blood Pressure 174/74 H 05/31/25 20:15 Blood Pressure Mean 107 H 05/31/25 20:15 Blood Pressure Position Semi-Fowlers 05/31/25 20:15 Pulse Oximetry 96 05/31/25 20:15 Oxygen Delivery Method Room Air 05/31/25 20:15 Vital Signs Temperature 98.2 F 05/31/25 20:15 Pulse Rate 92 05/31/25 20:15 Respiratory Rate 16 05/31/25 20:15 Blood Pressure 174/74 H 05/31/25 20:15 Pulse Oximetry 96 05/31/25 20:15 Oxygen Delivery Method Room Air 05/31/25 20:15 Temperature 98.2 F 05/31/25 20:15 Pulse Rate 90 05/31/25 21:56 Respiratory Rate 16 05/31/25 21:56 Blood Pressure 121/66 05/31/25 21:56 Pulse Oximetry 91 05/31/25 21:56 Oxygen Delivery Method Room Air 05/31/25 21:56 Medications Administered Medications: Discontinued Medications Generic Name Dose Route Start Last Admin Trade Name Freq PRN Reason Stop Dose Admin Quetiapine Fumarate 200 mg 05/31/25 20:30 05/31/25 20:56 Quetiapine 100 Mg Tablet PO 05/31/25 20:31 200 mg ONCE ONE Administration Medical Decision Making MDM Narrative Medical decision making narrative: Was delayed on antibiotic receiving 1st outpatient dose this afternoon. Interestingly urine culture results from 2 days ago were negative. Would check labs again looking for further evidence of infection or electrolyte anomalies. Cardiac evaluation was done at prior visit with intermediate troponins which were flat. Seems to be indicating that his legs are bothering him again; gesturing; I wonder if muscle spasms are still the issue. Ordering for evening Seroquel. Will monitor here in the emergency department. Blood pressure normalized during time of observation. Was supplied with one-to-one due to intermittent agitation but does not otherwise appear to be in pain. Labs with mildly elevated CRP are otherwise unremarkable. Overall appears stable. See patient discharge plan for further discussion Your labs again look good here today. Stable vitals. Your urine culture from 2 days ago did not actually grow any organisms. I still think that muscle spasms are a problem and would address them with your care team as soon as possible. Medical Records Medical records reviewed: Yes I reviewed the patient's medical records Lab Data Lab results reviewed: Yes I reviewed the patient's lab results Labs: Lab Results 05/31/25 Range/Units 21:05 WBC 9.87 (4.50-11.00) K/uL RBC 4.10 L (4.30-5.90) m/uL Hgb 11.6 L (13.5-17.5) gm/dL Hct 37.8 (37.0-53.0) % MCV 92 (80-100) fL MCH 28 (26-34) pg MCHC 31 L (32-36) gm/dL RDW Coeff of Harvinder 13.7 (11.5-15.5) % Plt Count 243 (140-440) K/uL Neut % (Auto) 81.4 H (42.0-72.0) % Lymph % (Auto) 7.0 L (20-44) % [place] % (Auto) 11.2 H (0.0-11.0) % Eos % (Auto) 0.0 (0.0-7.0) % Baso % (Auto) 0.3 (0.0-3.0) % Neut # (Auto) 8.00 H (1.7-7.0) K/uL Lymph # (Auto) 0.70 L (0.90-2.90) K/uL [place] # (Auto) 1.10 H (0.00-0.90) K/UL Eos # (Auto) 0.00 (0.00-0.50) K/uL Baso # (Auto) 0.03 (0.00-0.30) K/uL Abs Immat Gran (auto) 0.01 (0.00-0.30) K/uL Imm/Tot Granulo (auto) 0.1 % Sodium 136 (135-149) mmol/L Potassium 3.7 (3.6-5.1) mmol/L Chloride 98 (96-114) mmol/L Carbon Dioxide 25 (20-32) mmol/L Anion Gap 13 (7-15) mEq/L BUN 25 (7-30) mg/dL Creatinine 1.3 (0.5-1.5) mg/dL Estimated GFR 55 ml/min Glucose 179 H (60-115) mg/dL Lactate 1.7 (0.5-1.9) mmol/L Calcium 9.4 (8.4-10.6) mg/dL C-Reactive Protein 2.9 H (0.5-1.0) mg/dL Discharge Plan Discharge Clinical Impression: Agitation Patient Disposition: Home w/ Parent or Adult Condition: Stable Additional Instructions: Your labs again look good here today. Stable vitals. Your urine culture from 2 days ago did not actually grow any organisms. I still think that muscle spasms are a problem and would address them with your care team as soon as possible. Prescriptions: No Action cephalexin 500 mg capsule 500 mg PO TID 7 Days Qty: 21 0RF insulin lispro [Admelog SoloStar U-100 Insulin] 100 unit/mL insulin pen 3 unit subcut TID aspirin [Adult Aspirin Regimen] 81 mg tablet,delayed release (DR/EC) 81 mg PO DAILY atorvastatin 10 mg tablet 10 mg PO HS insulin glargine [Basaglar KwikPen U-100 Insulin] 100 unit/mL (3 mL) insulin pen 12 unit subcut HS escitalopram oxalate 10 mg tablet 10 mg PO DAILY furosemide 20 mg tablet 20 mg PO DAILY lisinopril 20 mg tablet 20 mg PO DAILY metoprolol tartrate 100 mg tablet 100 mg PO BID multivitamin [Daily Multi-Vitamin] Tablet 1 tab PO DAILY quetiapine [Seroquel] 200 mg tablet 200 mg PO BID cyanocobalamin (vitamin B-12) 100 mcg tablet 100 mcg PO DAILY potassium chloride [Klor-Con] 20 mEq packet 20 meq PO DAILY metformin 1,000 mg tablet extended release 24hr 1,000 mg PO BIDWM cyanocobalamin (vitamin B-12) 1,000 mcg tablet 1,000 mcg PO DAILY metformin 500 mg tablet extended release 24 hr PO multivitamin with folic acid [Daily-Denisha (with folic acid)] 400 mcg tablet 1 tab PO QPM potassium chloride 20 mEq tablet extended release 20 meq PO DAILY Follow Up/Referrals: Nathalia Smiley MD [Primary Care Provider, Family Practice] Stand Alone Forms: [employer] Info Instructions
[2025-05-31] MEDS: QUETIAPINE 100 MG TABLET 200 MG PO (20:56)
[2025-05-31 21:14] LABS: Lactate* 1.7 mmol/L (0.5-1.9)
[2025-05-31 21:15] LABS: Hematocrit* 37.8 % (37.0-53.0); Hemoglobin* 11.6 gm/dL (13.5-17.5); Immature Granulocytes Abs Auto 0.01 K/uL (0.00-0.30); Immature Granulocytes Pct Auto 0.1 %; Mean Corpuscular HGB Conc 31 gm/dL (32-36); Mean Corpuscular Hemoglobin 28 pg (26-34); Mean Corpuscular Volume 92 fL (80-100); RDW Coefficient of Variation % 13.7 % (11.5-15.5); Red Blood Count* 4.10 m/uL (4.30-5.90); White Blood Count* 9.87 K/uL (4.50-11.00)
[2025-05-31 21:22] LABS: Lymphocytes Absolute Auto 0.70 K/uL (0.90-2.90); Slide Review Reflex No
[2025-05-31 21:34] LABS: Chloride* 98 mmol/L (96-114); Sodium* 136 mmol/L (135-149)
[2025-05-31 21:35] LABS: Potassium* 3.7 mmol/L (3.6-5.1)
[2025-05-31 21:38] LABS: Anion Gap 13 mEq/L (7-15); Blood Urea Nitrogen* 25 mg/dL (7-30); Calcium* 9.4 mg/dL (8.4-10.6); Carbon Dioxide* 25 mmol/L (20-32); Creatinine* 1.3 mg/dL (0.5-1.5); Estimated Glomerular Filt Rate 55 ml/min; Glucose* 179 mg/dL (60-115)
[2025-05-31 21:56] VITALS: BP 121/66; PULSE 90; RESP 16; O2SAT 91
--- NOTE | 2025-05-31 23:00 | ED.NURSE ---
Pt did have 1-1 to observe for safety in ER. Riddler Operator did assist to attempt to allow Pt to void for urine sample. Pt did become active with this and did not ever urinate more than what was in brief initially. Pt was found to be strong, and with no trembling or sweating which had been reported initially by EMS. Pt transfer back to [facility] via EMS.
== END 2025-05-31 23:11 | disposition home or self-care (01) ==
PROVIDERS: Emergency Provider Family Medicine; PCP Family Medicine
DX: R45.1 Restlessness and agitation (principal)
CPT/HCPCS: 36415; 80048; 81001; 83605; 85025; 86140; 99283; 99284; A9270

== ENCOUNTER 2025-05-31 22:40 | Outpatient (CLI) | payer BC, SELFPAY | END 2025-05-31 22:41 | disposition home or self-care (01) | LOC: AMB 06-02 23:38 | PROVIDERS: PCP Family Medicine; Visit Provider Family Medicine | DX: R45.1 Restlessness and agitation (principal); F03.90 Unspecified dementia, unspecified severity, without behavioral disturbance, psychotic disturbance, mood disturbance, and anxiety | CPT/HCPCS: A0425; A0428 ==

== ENCOUNTER 2025-06-01 12:59 | Outpatient (CLI) | payer BC, SELFPAY | END 2025-06-01 13:00 | disposition home or self-care (01) | LOC: AMB 06-03 00:09 | PROVIDERS: PCP Family Medicine; Visit Provider Emergency Medicine | DX: R55 Syncope and collapse (principal); R41.82 Altered mental status, unspecified | CPT/HCPCS: A0425; A0429 ==

== ENCOUNTER 2025-06-01 13:28 | Inpatient (IN) | payer BC, SELFPAY ==
[2025-06-01] VITALS (42 sets, daily range): BP systolic 127–167; BP diastolic 58–83; PULSE 53–68; RESP 11–23; TEMP 35.6–35.9; O2SAT 84–99
--- NOTE | 2025-06-01 13:30 | ED_ITS ---
HPI - General Adult General Date Seen: 06/01/25 Chief complaint: Altered Mental Status Stated complaint: UTI Time Seen by Provider: 06/01/25 13:30 History of Present Illness HPI narrative: Patient is not able to provide history or answer questions. He is drowsy and somnolent. He arouses to physical stimulation and moves his fist push nurses away, but seems confused and groggy and then falls back to sleep. GCS is 13 79-year-old gentleman brought to the ER today by EMS for altered mental status and failure to take his meds. Report from EMS is that the patient does have dementia and lives in a memory care unit but is generally in tendon. He has apparently been sick with UTI lately and may not have been taking his meds (or his other prescription meds. Apparently his staff came to check on him today and he was sleepy and difficult to arouse. Per their protocol they sent him here to the ER. EMS was able to have a conversation with the nurse who manages his unit (there is not actually a nurse on site but his staff apparently called the nurse). That nurse indicates that the patient now exceeds the ability to receive care in his previous memory care unit because of his new altered mental status. Per EMS the patient had a normal blood pressure. Blood sugar 216. He was drowsy but nonfocal. EMS reports that his staff at his memory care unit rib think he has not been taking his antibiotics or his other meds lately. Unclear if he has taken any meds today. Unclear how many days he may have been without his meds. EMS reports that is ?full code. 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 We will try to contact them by phone. Your nursing staff know this patient because he was here in the ER yesterday. They report that he does have dementia and he was having spells of agitation and violent behavior yesterday in the ER. He was apparently swinging his fists at staff. In review of his medical record He was here in the ER 05/29 for possible chest pain. He was apparently intermittently sweaty. He has a history of schizophrenia and dementia. In that visit he had a temp of 97.7?. Blood pressure 139/81. Pulse 89. Oxygen 95% room air. He received lorazepam and Seroquel. In the ER he had labs. White count 9.9, hemoglobin 11.9, platelet count 234. Sodium 136, potassium 4.0, chloride 99, bicarb 29, BUN 17, creatinine 1.1, glucose 167. Calcium 9.1. Magnesium 1.8. Point of care troponin was 38. Troponin I was 0.05. EKG was ?similar to prior. It showed right bundle-branch block, normal sinus rhythm. Influenza/COVID/RSV were negative. Urinalysis showed> 100 WBC, 10-25 RBC, negative nitrite. 2+ blood. 1+ bili room here 1+ ketones. 3+ protein. Specific gravity was elevated at 1.030. Rocephin given in ER. Prescribe cephalexin 500 t.i.d. for 7 days He was seen in the ER at about 1:00 p.m. on 05/30. he apparently had agitation, prompting his return visit. Per records he was not agitated in the ER. He was back to his baseline. He received a 2nd dose of Rocephin. He was discharged back to his residence. He was seen again in the ER yesterday 05/31 at about 9:00 p.m.. He was apparently shaky and sweating. Her rate was in the 120s. He is reported to be nonverbal and occasionally combative. Temperature was 98.2?. Pulse 92 rib. Respiratory rate 16. Blood pressure 174/74. Oxygen 96% room air. He received Seroquel. Labs showed a white count of 9.8, hemoglobin 11.6, platelet count 243. Sodium 136, potassium 3.7, chloride 98, bicarb 25, BUN 25, creatinine 1.3, glucose 179. Venous lactic 1.7. CRP 2.9. Nurses who were here in the ER with him yesterday report that he was intermittently agitated and swinging at staff. He was very difficult to calm down in generally nonverbal. Related Data Home Medications ?Medication ?Instructions ?Recorded ?Confirmed aspirin 81 mg tablet,delayed 81 mg PO DAILY 10/28/24 0 12/14/24 release (Adult Aspirin Regimen) atorvastatin 10 mg tablet 10 mg PO HS 10/28/24 07 5 cyanocobalamin (vitamin B-12) 100 100 mcg PO DAILY 10/28/24 mcg tablet escitalopram oxalate 10 mg tablet 10 mg PO DAILY 10/2812/14/24 furosemide 20 mg tablet 20 mg PO DAILY 10/28/2412/04 insulin glargine 100 unit/mL (3 12 unit subcut HS 10/0510/28/24 mL) subcutaneous pen (Basaglar KwikPen U-100 Insulin) insulin lispro 100 unit/mL 3 unit subcut TID 10/28/24 12/14/24 subcutaneous pen (Admelog SoloStar U-100 Insulin lispro) lisinopril 20 mg tablet 20 mg PO DAILY 10/28/2412/04 metformin 1,000 mg tablet,extended 1,000 mg PO BIDWM 0 10/28/24 10/28/24 release 24hr (osmotic) metoprolol tartrate 100 mg tablet 100 mg PO BID 12/14/24 multivitamin (Daily Multi-Vitamin 1 tab PO DAILY 10/2810/28/24 tablet) potassium chloride 20 mEq oral 20 meq PO DAILY 10/28/24 packet (Klor-Con) quetiapine 200 mg tablet (Seroquel) 200 mg PO BID 10/0512/14/24 cyanocobalamin (vitamin B-12) 1,000 mcg PO DAILY 12/1412/14/24 1,000 mcg tablet metformin 500 mg tablet,extended mg PO 12/14/24 release 24 hr multivitamin with folic acid 400 1 tab PO QPM 12/14/24 12/14/24 mcg tablet (Daily-Denisha (with folic acid)) potassium chloride 20 mEq 20 meq PO DAILY 12/14/2404/30 tablet,extended release Previous Rx's ?Medication ?Instructions ?Recorded cephalexin 500 mg capsule 500 mg PO TID 7 days #21 cap s 05/29/25 Allergies Allergy/AdvReac Type Severity Reaction Status Date / Time No Known Drug Allergies Allergy Verified 05/30/25 13:03 [facility] Social History Smoking Status: Unknown if ever smoked Exam Narrative: Exam Narrative: Primary Survey: A- patent. Breathing easily. Protecting his airway. When I try to do an oral exam he pushes his tongue is the tongue blade. B- breathing easily. Lung sounds clear and equal. Oxygen saturation normal on room air C- no active bleeding. Blood pressure stable. Symmetric pulses and cap refill in 4 extremities. Normal cap refill. D- drowsy. Arouses to physical stimulation and tries to push the nurses away but is not agitated or violent. GCS is 11. E 2, V4, M5 (he pushes against nurses but does not really follow commands. He is moving his arms purposefully. No focal deficits.) Constitutional: Appears well-developed and well-nourished. Drowsy. Not able to provide history. HENT: Head: Atraumatic. No depressed skull fracture, Raccoon Eyes, Carrasquillo's sign, or hemotympanum. Face normal. TMs normal Nose: Nose normal. Mouth/Throat: Oral mucosa is clear . Mucous membranes are dry. no trismus. Unable to visualize his posterior pharynx. He is protecting his airway. Eyes: Conjunctivae normal. EOM normal. Pupils equal, round, and reactive to light. No scleral icterus. Neck: Normal range of motion. Neck supple. No tracheal deviation present. No apparent neck bruising. No apparent trauma. Does not seem to have any discomfort with palpation. Cardiovascular: Normal rate, regular rhythm. No gallop. No friction rub. No murmur heard. Symmetric radial and PT artery pulses Pulmonary/Chest: Effort normal. No stridor. No respiratory distress. No wheezes. No rales. No rhonchi . No tenderness. Abdominal: Soft. Bowel sounds normal. No distension. No mass. At 1 point during exam seem to have some mild epigastric tenderness. On repeat exam does not seem tender. No rebound. No guarding. : Had been incontinent of some liquidy semi formed brown stool. Nurses got him cleaned up. He does not have any bed sores or other rashes. Musculoskeletal: RUE: Normal range of motion. No tenderness. No deformity LUE: Normal range of motion. No tenderness. No deformity RLE: Normal range of motion. No edema. No tenderness. No deformity LLE: Normal range of motion. No edema. No tenderness. No deformity Neurological: GCS is 11. He is drowsy. Yesterday was apparently agitated and swinging at nurses. Today he is just more somnolent. He is protecting his airway. No focal deficits. Does respond to painful stimulation and pushes away nurses. Otherwise not really following commands or answering questions. Skin: Skin is warm and dry. No rash noted. No pallor. Normal capillary refill. No pallor. No mottling. No diaphoresis. Psychiatric: Limited Const: Vital Signs, click to edit/add: Vital Signs - 24 hr 06/01/25 13:32 06/01/25 13:32 06/01/25 13:33 Temperature 96.7 F L Pulse Rate 68 67 Pulse Rate [Pulse Oximeter] 67 Respiratory Rate 16 16 Blood Pressure 127/58 L Blood Pressure [Le ft Upper Arm] 127/58 L Pulse Oximetry 96 95 96 Oxygen Delivery Me thod Room Air Room Air 06/01/25 13:55 06/01/25 14:00 06/01/25 14:15 Temperature Pulse Rate 66 67 62 Pulse Rate [Pulse Oximeter] Respiratory Rate 16 Blood Pressure 137/68 Blood Pressure [Le ft Upper Arm] Pulse Oximetry 91 94 96 Oxygen Delivery Me thod Room Air 06/01/25 14:16 06/01/25 14:45 06/01/25 14:50 Temperature Pulse Rate 63 64 62 Pulse Rate [Pulse Oximeter] Respiratory Rate 16 Blood Pressure 139/65 Blood Pressure [Le ft Upper Arm] Pulse Oximetry 91 96 96 Oxygen Delivery Me thod 06/01/25 15:00 06/01/25 15:03 06/01/25 15:15 Temperature Pulse Rate 62 61 60 Pulse Rate [Pulse Oximeter] Respiratory Rate 13 15 11 L Blood Pressure 157/70 H Blood Pressure [Le ft Upper Arm] Pulse Oximetry 94 93 84 L Oxygen Delivery Me thod 06/01/25 15:30 06/01/25 15:45 06/01/25 16:00 Temperature Pulse Rate 60 66 59 L Pulse Rate [Pulse Oximeter] Respiratory Rate 12 13 Blood Pressure Blood Pressure [Le ft Upper Arm] Pulse Oximetry 98 96 Oxygen Delivery Me thod 06/01/25 16:15 06/01/25 16:17 06/01/25 16:24 Temperature Pulse Rate 58 L 59 L 59 L Pulse Rate [Pulse Oximeter] Respiratory Rate 19 15 Blood Pressure 155/76 H Blood Pressure [Le ft Upper Arm] Pulse Oximetry 98 93 94 Oxygen Delivery Me thod Room Air Course Course ED Course: Recheck-back from CT. Vital stable. Repeat physical exam performed again to look for any changes or subtle findings. Recheck-nurses noted that when he fell asleep and was snoring he seemed to have some sleep apnea so his oxygen transiently dipped into the 80s. For nurses could but nasal cannula oxygen came up again. Recheck-saline bolus completed. Patient is actually more awake now. Eyes are open. He is looking at the nurse. He is not really cooperative any still seems somewhat confused he is able say a couple of words. He is not really able to answer questions. GCS is now 14. Recheck-discussed with cardiology, Dr. Barger Recheck-discussed with Dr. Amaya at 6:15 p.m.. He accepts for admission here in [place]. Vital Signs Vital signs: Initial Vital Signs Temperature 96.7 F L 06/01/25 13:32 Temperature Source Temporal Artery Scan 06/01/25 13:32 Pulse Rate 68 06/01/25 13:32 Respiratory Rate 16 06/01/25 13:32 Blood Pressure 127/58 L 06/01/25 13:32 Blood Pressure Mean 81 06/01/25 13:32 Blood Pressure Position Right Lateral 06/01/25 13:32 Pulse Oximetry 96 06/01/25 13:32 Oxygen Delivery Method Room Air 06/01/25 13:32 Vital Signs Temperature 96.7 F L 06/01/25 13:32 Pulse Rate 68 06/01/25 13:32 Respiratory Rate 16 06/01/25 13:32 Blood Pressure 127/58 L 06/01/25 13:32 Pulse Oximetry 96 06/01/25 13:32 Oxygen Delivery Method Room Air 06/01/25 13:32 Temperature 96.7 F L 06/01/25 13:32 Pulse Rate 59 L 06/01/25 16:24 Respiratory Rate 15 06/01/25 16:24 Blood Pressure 155/76 H 06/01/25 16:24 Pulse Oximetry 94 06/01/25 16:24 Oxygen Delivery Method Room Air 06/01/25 16:24 Medications Administered Medications: Generic Name Dose Route Start Last Admin Trade Name Freq PRN Reason Stop Dose Admin Piperacillin Sod/Tazobactam 100 mls @ 200 mls/hr 06/01/25 16:41 06/01/25 17:20 Sod 4.5 gm/ Sodium Chloride IVPB 06/01/25 17:10 200 mls/hr ONCE ONE Administration Vancomycin/PEG/NADA/Lysine/Water 1.5 gm in 300 mls @ 200 mls/hr 06/01/25 16:45 06/01/25 17:52 Vancomycin 1.5 Gm/300 Ml IVPB 06/01/25 18:14 200 mls/hr ONCE ONE Administration Protocol Discontinued Medications Generic Name Dose Route Start Last Admin Trade Name Matt PRN Reason Stop Dose Admin Aspirin 300 mg 06/01/25 15:17 06/01/25 15:41 Aspirin 300 Mg Supp [place] 06/01/25 15:18 300 mg ONCE ONE Administration Sodium Chloride 1,000 mls @ 1,000 mls/hr 06/01/25 15:30 06/01/25 15:41 0.9 % Sodium Chloride 1000 Ml IV 06/01/25 16:29 1,000 mls/hr .Q1H REBA Administration Medical Decision Making MDM Narrative Medical decision making narrative: 79-year-old gentleman who has a reported history of schizophrenia and dementia is brought to the ER today by EMS from his memory care unit. He has increasing somnolence and altered mental status interspersed with a reported spells of agitation. It sounds like he has not been taking his medications (not taking antibiotics for recent diagnosed UTI and also may not be taking his other long- term medications). He is sent here to the ER for his 4th or 5th visit in the past 3 days for this altered mental status. Differential is broad. 1. consider possible urosepsis causing altered mental status. It looks like he had received a dose of IV Rocephin on the and , but min not have gotten any antibiotics yesterday. As far as we know he has not taken any of the prescribe cephalexin. We did give him another dose of IV Rocephin here in the ER. Blood pressure stable. Pulse is normal. He is not febrile. White blood cell count is normal at 6. Venous lactic acid is normal at 0.9. At this point no clear objective evidence for sepsis Blood in urine cultures are obtained today prior to initiation of antibiotics. I reviewed his previous urine culture from 05/29 and has no growth. CT scan shows bilateral perinephric stranding and inflammation of the bladder wall indicative of UTI. Given the fact that he has ongoing signs of UTI despite having already received 2 IV doses of Rocephin in the past 3 days, concern would be that he might have a resistant pathogen. I have no previous cultures to look for MRSA or VRE. Will broaden antibiotic coverage with Zosyn No apparent neck stiffness on exam. Less likely to be meningitis. At this point the risk of complications of attempted lumbar puncture would outweigh the benefit. 2. He was negative for flu/COVID/RSV on the . He is not coughing or hypoxia but given current prevalence in our community we did recheck it today. again negative. 3. Per report he has not been taking his meds and may not have been eating or drinking for the past couple of days. We did check metabolic profile and electrolytes are fairly well balance. Kidney function is acceptable. BUN has gone up slightly compared to a couple of days ago which would suggest some component of dehydration. IV saline bolus ordered. 4. He does have a few bruises on his right foot and on his extremities. Consider possible trauma is a called for altered mental status. Head CT is normal. 5. With very limited ability to get history or clearly interpretable exam we did obtain a CT scan of his chest to look for PE as a cause for his abnormal troponin as well as his abdomen as he did at 1 point have some upper abdominal tenderness. CT of his chest does not show any evidence for PE, pneumonia, pulmonary edema, pneumothorax, pleural effusion. It does, however shows small pericardial effusion. Consider possible pericarditis as a cause for his symptoms. CT abdomen shows inflammation of the bladder in both kidneys, probably indicative of UTI. Also an indeterminate cystic lesion affecting the left kidney. CT scan of his abdomen also shows status post cholecystectomy with a common bile duct at about 11 mm. Liver function tests are essentially normal with total bilirubin of 0.9, ALT of 33, AST 100, alk-phos of 52. Lipase is normal and there are no CT findings of pancreatitis. 6. Cardiac: I am not able to get any history from the patient today so it is unknown if he has been having chest pain or not. In review his medical records I see on his 1st visit he may have been grabbing at his chest prior to that ER visit. Troponin on the was abnormal at 38. EKG did not show any clear ischemia. Repeat EKG still does not show any ischemia but inital troponin today has gone up to 104.82 hour delta troponin today is rising slightly to 111.2. This could be concerning for probable non ST elevation [place]. we administered rectal aspirin because the patient is not able to cooperate and take pills. D/w cardiology from [facility], Dr Barger. With small pericardial effusion, consider possible pericarditis as a cause for symptoms. With the patient's altered mental status he is not able to answer any questions or discussed his diagnosis or discussed his potential desires for medical care. Report from paramedics is that he is ?full code?. We did attempt to contact his [facility] home health travel pt who was apparently his legal guardian. They did not answer and their voicemail indicates that they are on vacation until June 10. We also attempted to contact the arm was month was apparently on-call for emergencies. So far we have not been able to get an answer about what goals of care should be undertaken for this patient, other than that they do want the patient to be ?full code. Do everything. ? At question is specifically whether not they would want transfer to a cardiac hospital, heparin drip, admission to the Cardiac [facility], and potentially a coronary angiogram. Discussed with cardiology from [facility], Dr. Rios. With the flat troponins today no clear chest pain for the past 3 days, he doubts this is an active ACS. Even if this is an NSTEMI, may be demand ischemia rather than acute coronary syndrome. No indication for emergent catheterization. Patient would not be a good candidate for cardiac catheterization. Cardiology recommends medical management for now and outpatient follow-up for coronary CTA or Lexiscan. 7. Hemoglobin is anemia, but at 10.4 is near baseline of 11 from October. No bloody stool or other bleeding while in ER. Lab Data Labs: Lab Results 06/01/25 06/01/25 06/01/25 Range/Units 13:51 13:52 14:00 WBC (4.50-11.00) K/uL RBC (4.30-5.90) m/uL Hgb (13.5-17.5) gm/dL Hct (37.0-53.0) % MCV (80-100) fL MCH (26-34) pg MCHC (32-36) gm/dL RDW Coeff of Harvinder (11.5-15.5) % Plt Count (140-440) K/uL Neut % (Auto) (42.0-72.0) % Lymph % (Auto) (20-44) % Fajardo % (Auto) (0.0-11.0) % Eos % (Auto) (0.0-7.0) % Baso % (Auto) (0.0-3.0) % Neut # (Auto) (1.7-7.0) K/uL Lymph # (Auto) (0.90-2.90) K/uL Fajardo # (Auto) (0.00-0.90) K/UL Eos # (Auto) (0.00-0.50) K/uL Baso # (Auto) (0.00-0.30) K/uL Abs Immat Gran (auto) (0.00-0.30) K/uL Imm/Tot Granulo (auto) % Sodium (135-149) mmol/L Potassium (3.6-5.1) mmol/L Chloride (96-114) mmol/L Carbon Dioxide (20-32) mmol/L Anion Gap (7-15) mEq/L BUN (7-30) mg/dL Creatinine (0.5-1.5) mg/dL Estimated Creat Clear Estimated GFR ml/min Glucose (60-115) mg/dL Lactate (0.5-1.9) mmol/L Calcium (8.4-10.6) mg/dL Total Bilirubin (0.1-1.5) mg/dL AST (12-35) U/L ALT (4-50) U/L Alkaline Phosphatase (40-150) U/L POC Troponin I High Sensi 104.8 H* (2.9-28.0) pg/mL Total Protein (6.0-8.3) g/dL Albumin (3.3-5.0) g/dL Lipase (23-300) U/L Urine Color (Yellow) Urine Appearance (Clear) Urine pH (5.0-8.5) Ur Specific Chilton (1.000-1.030) Urine Protein (Negative) Urine Glucose (UA) (Negative) Urine Ketones (Negative) Urine Blood (Negative) Urine Nitrite (Negative) Urine Bilirubin (Negative) Urine Urobilinogen (0.2-1.0) Ur Leukocyte Esterase (Negative) Urine RBC (0-2) Urine WBC (0-5) Ur Squamous Epith Cells (None-Few) Urine Bacteria (None) Stl C. diff Tox B Gene Negative (Negative) Stl C. diff 027-NAP1-BI PRESUMPTIVE NEGATIVE (Negative) SARS-CoV-2 (PCR) (Negative) Influenza Type A (PCR) (Negative) Influenza Type B (PCR) (Negative) RSV (PCR) (Negative) Lab Acknowledgement POC Creatinine 1.3 (0.6-1.3) mg/dl 06/01/25 06/01/25 06/01/25 Range/Units 14:05 14:10 15:05 WBC 6.03 (4.50-11.00) K/uL RBC 3.70 L (4.30-5.90) m/uL Hgb 10.4 L (13.5-17.5) gm/dL Hct 33.8 L (37.0-53.0) % MCV 91 (80-100) fL MCH 28 (26-34) pg MCHC 31 L (32-36) gm/dL RDW Coeff of Harvinder 13.8 (11.5-15.5) % Plt Count 213 (140-440) K/uL Neut % (Auto) 71.6 (42.0-72.0) % Lymph % (Auto) 13.4 L (20-44) % Fajardo % (Auto) 13.8 H (0.0-11.0) % Eos % (Auto) 0.5 (0.0-7.0) % Baso % (Auto) 0.5 (0.0-3.0) % Neut # (Auto) 4.32 (1.7-7.0) K/uL Lymph # (Auto) 0.80 L (0.90-2.90) K/uL Fajardo # (Auto) 0.80 (0.00-0.90) K/UL Eos # (Auto) 0.03 (0.00-0.50) K/uL Baso # (Auto) 0.03 (0.00-0.30) K/uL Abs Immat Gran (auto) 0.01 (0.00-0.30) K/uL Imm/Tot Granulo (auto) 0.2 % Sodium 138 (135-149) mmol/L Potassium 3.6 (3.6-5.1) mmol/L Chloride 102 (96-114) mmol/L Carbon Dioxide 30 (20-32) mmol/L Anion Gap 6 L (7-15) mEq/L BUN 29 (7-30) mg/dL Creatinine 1.1 (0.5-1.5) mg/dL Estimated Creat Clear 54.38 Estimated GFR 67 ml/min Glucose 184 H (60-115) mg/dL Lactate 0.9 (0.5-1.9) mmol/L Calcium 9.0 (8.4-10.6) mg/dL Total Bilirubin 0.9 (0.1-1.5) mg/dL AST 100 H (12-35) U/L ALT 33 (4-50) U/L Alkaline Phosphatase 52 (40-150) U/L POC Troponin I High Sensi (2.9-28.0) pg/mL Total Protein 6.3 (6.0-8.3) g/dL Albumin 3.8 (3.3-5.0) g/dL Lipase 19 L (23-300) U/L Urine Color (Yellow) Urine Appearance (Clear) Urine pH (5.0-8.5) Ur Specific Chilton (1.000-1.030) Urine Protein (Negative) Urine Glucose (UA) (Negative) Urine Ketones (Negative) Urine Blood (Negative) Urine Nitrite (Negative) Urine Bilirubin (Negative) Urine Urobilinogen (0.2-1.0) Ur Leukocyte Esterase (Negative) Urine RBC (0-2) Urine WBC (0-5) Ur Squamous Epith Cells (None-Few) Urine Bacteria (None) Stl C. diff Tox B Gene (Negative) Stl C. diff 027-NAP1-BI (Negative) SARS-CoV-2 (PCR) Negative SARS-CoV-2 (Negative) Influenza Type A (PCR) Negative PCR FLU A (Negative) Influenza Type B (PCR) Negative PCR FLU B (Negative) RSV (PCR) Negative PCR RSV (Negative) Lab Acknowledgement POC Creatinine (0.6-1.3) mg/dl 06/01/25 06/01/25 Range/Units 16:05 16:18 WBC (4.50-11.00) K/uL RBC (4.30-5.90) m/uL Hgb (13.5-17.5) gm/dL Hct (37.0-53.0) % MCV (80-100) fL MCH (26-34) pg MCHC (32-36) gm/dL RDW Coeff of Harvinder (11.5-15.5) % Plt Count (140-440) K/uL Neut % (Auto) (42.0-72.0) % Lymph % (Auto) (20-44) % Fajardo % (Auto) (0.0-11.0) % Eos % (Auto) (0.0-7.0) % Baso % (Auto) (0.0-3.0) % Neut # (Auto) (1.7-7.0) K/uL Lymph # (Auto) (0.90-2.90) K/uL Fajardo # (Auto) (0.00-0.90) K/UL Eos # (Auto) (0.00-0.50) K/uL Baso # (Auto) (0.00-0.30) K/uL Abs Immat Gran (auto) (0.00-0.30) K/uL Imm/Tot Granulo (auto) % Sodium (135-149) mmol/L Potassium (3.6-5.1) mmol/L Chloride (96-114) mmol/L Carbon Dioxide (20-32) mmol/L Anion Gap (7-15) mEq/L BUN (7-30) mg/dL Creatinine (0.5-1.5) mg/dL Estimated Creat Clear Estimated GFR ml/min Glucose (60-115) mg/dL Lactate (0.5-1.9) mmol/L Calcium (8.4-10.6) mg/dL Total Bilirubin (0.1-1.5) mg/dL AST (12-35) U/L ALT (4-50) U/L Alkaline Phosphatase (40-150) U/L POC Troponin I High Sensi (2.9-28.0) pg/mL Total Protein (6.0-8.3) g/dL Albumin (3.3-5.0) g/dL Lipase (23-300) U/L Urine Color Yellow (Yellow) Urine Appearance Clear (Clear) Urine pH 5.5 (5.0-8.5) Ur Specific Chilton 1.020 (1.000-1.030) Urine Protein 3+ A (Negative) Urine Glucose (UA) Negative (Negative) Urine Ketones 2+ A (Negative) Urine Blood 2+ A (Negative) Urine Nitrite Negative (Negative) Urine Bilirubin 1+ A (Negative) Urine Urobilinogen 0.2 (0.2-1.0) Ur Leukocyte Esterase Trace A (Negative) Urine RBC 2-5 A (0-2) Urine WBC 2-5 (0-5) Ur Squamous Epith Cells Few (None-Few) Urine Bacteria Few A (None) Stl C. diff Tox B Gene (Negative) Stl C. diff 027-NAP1-BI (Negative) SARS-CoV-2 (PCR) (Negative) Influenza Type A (PCR) (Negative) Influenza Type B (PCR) (Negative) RSV (PCR) (Negative) Lab Acknowledgement Test Added POC Creatinine (0.6-1.3) mg/dl Imaging Data CT scan - head: Attestation: I have reviewed the pertinent imaging results. Radiologist's impression: IMPRESSION: IMPRESSION:1. No CT evidence of acute cortical infarct. No acute intracranial hemorrhage. No other acute intracranial findings. CT scan - chest: Attestation: I have reviewed the pertinent imaging results. Radiologist's impression: IMPRESSION: 1. No evidence of pulmonary embolism. 2. Cardiomegaly with a small pericardial effusion. 3. Subsegmental bibasilar atelectasis with a few areas of minimal mucous plugging in the bilateral lower lobes. No lobar airspace consolidation, pleural effusion or pneumothorax. CT scan - abdomen: Attestation: I have reviewed the pertinent imaging results. Radiologist's impression: IMPRESSION: 1. Bladder wall thickening, as well as bilateral perinephric stranding. Correlation with urinalysis is recommended, if not already performed, to evaluate for urinary tract infection. 2. There is an indeterminate 3.7 x 2.3 centimeter cystic structure within the left kidney, as described. The cyst may contain an internal septation or layering debris. Dedicated renal ultrasound is recommended for further evaluation. 3. Status post cholecystectomy with dilation of the common bile duct, measuring 1.1 centimeters. This may be a chronic finding. If further evaluation is required, right upper quadrant ultrasound is recommended. No prior imaging is available for comparison. 4. Enlarged prostate. XR R foot: Attestation: I have reviewed the pertinent imaging results. Radiologist's impression: IMPRESSION: 1. No acute osseous findings. 2. 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 ECG Data Attestation: I personally reviewed and interpreted this ECG as follows: Interpretation: Sinus rhythm with first-degree AV block Rate 60 The [place] interval 216 Left axis deviation. Right bundle branch block. QRS duration [address] segment elevation or depression. Artifact in leads V1 and V2. No definite change compared to 05/29/2025. QT 480, QTC 480 Discharge Plan Discharge Prescriptions: No Action cephalexin 500 mg capsule 500 mg PO TID 7 Days Qty: 21 0RF insulin lispro [Admelog SoloStar U-100 Insulin] 100 unit/mL insulin pen 3 unit subcut TID aspirin [Adult Aspirin Regimen] 81 mg tablet,delayed release (DR/EC) 81 mg PO DAILY atorvastatin 10 mg tablet 10 mg PO HS insulin glargine [Basaglar KwikPen U-100 Insulin] 100 unit/mL (3 mL) insulin pen 12 unit subcut HS escitalopram oxalate 10 mg tablet 10 mg PO DAILY furosemide 20 mg tablet 20 mg PO DAILY lisinopril 20 mg tablet 20 mg PO DAILY metoprolol tartrate 100 mg tablet 100 mg PO BID multivitamin [Daily Multi-Vitamin] Tablet 1 tab PO DAILY quetiapine [Seroquel] 200 mg tablet 200 mg PO BID cyanocobalamin (vitamin B-12) 100 mcg tablet 100 mcg PO DAILY potassium chloride [Klor-Con] 20 mEq packet 20 meq PO DAILY metformin 1,000 mg tablet extended release 24hr 1,000 mg PO BIDWM cyanocobalamin (vitamin B-12) 1,000 mcg tablet 1,000 mcg PO DAILY metformin 500 mg tablet extended release 24 hr PO multivitamin with folic acid [Daily-Denisha (with folic acid)] 400 mcg tablet 1 tab PO QPM potassium chloride 20 mEq tablet extended release 20 meq PO DAILY Follow Up/Referrals: Nathalia Smiley MD [Primary Care Provider, Family Practice]
--- NOTE | 2025-06-01 13:52 | CRLHL7_ITS ---
For Patients: As a result of the Cures Act, medical imaging exams and procedure reports are released immediately into your electronic medical record. You may view this report before your referring provider. If you have questions, please contact your health care provider. INDICATION: Altered mental status. UTI. TECHNIQUE: CT of the head without contrast. Coronal and sagittal reformats are included. COMPARISON: Head CT from 10/28/2024. FINDINGS: No CT evidence of acute cortical infarct. No loss of barnett white matter differentiation. No hyperdense vessels to suggest intracranial thrombus. No acute intracranial hemorrhage. No mass effect or midline shift. No hydrocephalus or extra-axial collections. Patchy white matter hypoattenuation, typical for chronic microvascular ischemic change. Moderate generalized parenchymal volume loss with advanced atrophy of the hippocampal formations. Intracranial vascular calcifications. No acute osseous abnormalities. Mastoid air cells and paranasal sinuses are clear. Normal soft tissues. IMPRESSION: IMPRESSION:1. No CT evidence of acute cortical infarct. No acute intracranial hemorrhage. No other acute intracranial findings. Please note that all CT scans at this facility use dose modulation, iterative reconstruction, and/or weight-based dosing when appropriate to reduce radiation dose to as low as reasonably achievable. Dictated by Dexter Mina MD @ 06/01/2025 3:06:08 PM (Electronically Signed)
--- NOTE | 2025-06-01 14:00 | CRLHL7_ITS ---
For Patients: As a result of the 21st Century Cures Act, medical imaging exams and procedure reports are released immediately into your electronic medical record. You may view this report before your referring provider. If you have questions, please contact your health care provider. INDICATION: AMS, UTI TECHNIQUE: CT abdomen and pelvis acquired with 95 cc Isovue 370 IV contrast. COMPARISON: None. FINDINGS: Lower chest: The heart is enlarged, and there is a small pericardial effusion. There is subsegmental bibasilar atelectasis. Liver: Unremarkable. Normal in size and attenuation. No suspicious masses. Gallbladder and bile ducts: The patient is status post cholecystectomy. There is dilation of the common bile duct, measuring 1.1 centimeters on series 2, image 41. Pancreas: Unremarkable. No mass or inflammation. Spleen: Unremarkable. Normal in size. No masses. Adrenal glands: Unremarkable. No nodules. Kidneys: The kidneys are symmetric in size and enhancement. There is an intermediate cystic structure within the left kidney and measuring 3.7 x 2.3 centimeters on series 2, image 60. This cyst may have layering debris or possibly an internal septation. There is also a simple appearing cyst in the upper pole of the right kidney on series 2, image 49, which does not require further imaging follow-up. There is mild bilateral perinephric stranding. GI tract: Unremarkable. Normal in caliber. No sign of mass or inflammation. Normal appendix. Vasculature: Abdominal aorta is normal in caliber. Mesenteric arteries are patent. Lymph nodes: No lymphadenopathy. Peritoneum/Abdominal Wall: Unremarkable. No sign of mass or infiltration. No free air or significant free fluid. Pelvis: The prostate gland is enlarged. There is mild left posterior bladder wall thickening, for example on series 2, image 134. Bones: There are degenerative changes within the spine. No acute osseous abnormality. IMPRESSION: 1. Bladder wall thickening, as well as bilateral perinephric stranding. Correlation with urinalysis is recommended, if not already performed, to evaluate for urinary tract infection. 2. There is an indeterminate 3.7 x 2.3 centimeter cystic structure within the left kidney, as described. The cyst may contain an internal septation or layering debris. Dedicated renal ultrasound is recommended for further evaluation. 3. Status post cholecystectomy with dilation of the common bile duct, measuring 1.1 centimeters. This may be a chronic finding. If further evaluation is required, right upper quadrant ultrasound is recommended. No prior imaging is available for comparison. 4. Enlarged prostate. Please note that all CT scans at this facility use dose modulation, iterative reconstruction, and/or weight-based dosing when appropriate to reduce radiation dose to as low as reasonably achievable. Dictated by Garcia Whyte MD @ 06/01/2025 3:43:05 PM (Electronically Signed)
--- NOTE | 2025-06-01 14:00 | CRLHL7_ITS ---
For Patients: As a result of the Century Cures Act, medical imaging exams and procedure reports are released immediately into your electronic medical record. You may view this report before your referring provider. If you have questions, please contact your health care provider. INDICATION: Altered mental status urinary tract infection TECHNIQUE: CT chest PE was acquired with 100 cc Omnipaque 350 IV contrast. Coronal and MIP reconstructions were performed. COMPARISON: None. FINDINGS: Heart and vasculature: Contrast opacification of the pulmonary arterial tree is adequate. No sign of pulmonary embolism. The heart is enlarged. Thoracic aorta and pulmonary artery are normal in caliber. There is a small pericardial effusion. There are calcifications of the coronary arteries. Lungs and pleura: The central airways are patent. There is subsegmental bibasilar atelectasis. There are a few areas of minimal mucous plugging in the bilateral lower lobes, for example in the right lower lobe on series 6, image 138. No lobar airspace consolidation, pleural effusion or pneumothorax. Lymph nodes/mediastinum: There are mildly prominent mediastinal and hilar lymph nodes. No lymphadenopathy by size criteria. Chest wall: No masses. Upper abdomen: There are multiple simple appearing renal cysts bilaterally, which are otherwise not well evaluated on the current examination secondary to contrast bolus timing. There is bilateral perinephric stranding. The patient is status post cholecystectomy. Bones: There are degenerative changes within the spine. No acute osseous abnormality. IMPRESSION: 1. No evidence of pulmonary embolism. 2. Cardiomegaly with a small pericardial effusion. 3. Subsegmental bibasilar atelectasis with a few areas of minimal mucous plugging in the bilateral lower lobes. No lobar airspace consolidation, pleural effusion or pneumothorax. Please note that all CT scans at this facility use dose modulation, iterative reconstruction, and/or weight-based dosing when appropriate to reduce radiation dose to as low as reasonably achievable. Dictated by Garcia Whyte MD @ 06/01/2025 3:29:00 PM (Electronically Signed)
[2025-06-01 14:15] LABS: Creatinine, Point-of-Care* 1.3 mg/dl (0.6-1.3)
[2025-06-01 14:15] LABS: Hematocrit* 33.8 % (37.0-53.0); Hemoglobin* 10.4 gm/dL (13.5-17.5); Immature Granulocytes Abs Auto 0.01 K/uL (0.00-0.30); Immature Granulocytes Pct Auto 0.2 %; Mean Corpuscular HGB Conc 31 gm/dL (32-36); Mean Corpuscular Hemoglobin 28 pg (26-34); Mean Corpuscular Volume 91 fL (80-100); RDW Coefficient of Variation % 13.8 % (11.5-15.5); Red Blood Count* 3.70 m/uL (4.30-5.90); White Blood Count* 6.03 K/uL (4.50-11.00)
[2025-06-01 14:20] LABS: Lactate* 0.9 mmol/L (0.5-1.9)
[2025-06-01 14:22] LABS: Lymphocytes Absolute Auto 0.80 K/uL (0.90-2.90); Slide Review Reflex No
[2025-06-01 14:38] LABS: Albumin* 3.8 g/dL (3.3-5.0); Chloride* 102 mmol/L (96-114); Potassium* 3.6 mmol/L (3.6-5.1); Sodium* 138 mmol/L (135-149)
[2025-06-01 14:41] LABS: Alanine Aminotransferase* 33 U/L (4-50); Alkaline Phosphatase* 52 U/L (40-150); Anion Gap 6 mEq/L (7-15); Aspartate Amino Transferase* 100 U/L (12-35); Bilirubin Total* 0.9 mg/dL (0.1-1.5); Blood Urea Nitrogen* 29 mg/dL (7-30); Calcium* 9.0 mg/dL (8.4-10.6); Carbon Dioxide* 30 mmol/L (20-32); Creatinine* 1.1 mg/dL (0.5-1.5); Est. Creatinine Clearance* 54.38; Estimated Glomerular Filt Rate 67 ml/min; Glucose* 184 mg/dL (60-115); Total Protein* 6.3 g/dL (6.0-8.3)
[2025-06-01 14:47] LABS: C.Difficile Negative (Negative); CDIFFEPI 027 PRESUMPTIVE NEGATIVE (Negative)
--- NOTE | 2025-06-01 15:29 | CRLHL7_ITS ---
For Patients: As a result of the Century Cures Act, medical imaging exams and procedure reports are released immediately into your electronic medical record. You may view this report before your referring provider. If you have questions, please contact your health care provider. INDICATION: Trauma, foot bruising, altered mental status COMPARISON: None. TECHNIQUE: Three radiographic view(s) of the right foot. FINDINGS: No evident acute displaced fracture. 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 Accessory peroneal ossicle. Small osseous excrescence at the inferior aspect of the medial malleolus is likely due to old trauma. Medium-sized plantar and posterior calcaneal enthesophytes. There are atherosclerotic vascular calcifications. IMPRESSION: 1. No acute osseous findings. 2. 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 Dictated by Chaka Huerta MD @ 06/01/2025 4:09:32 PM (Electronically Signed)
[2025-06-01] MEDS: ASPIRIN 300 MG SUPP PR (15:41)
[2025-06-01 15:55] LABS: PCR FLU A Negative PCR FLU A (Negative); PCR FLU B Negative PCR FLU B (Negative); PCR RSV Negative PCR RSV (Negative); SARS PCR* Negative SARS-CoV-2 (Negative)
[2025-06-01 16:22] LABS: Appearance Urine Clear (Clear)
[2025-06-01] MEDS: PIPERACILLIN/TAZOBACTAM 4.5 GM in 0.9 % SODIUM CHLORIDE Mini-bag 100 ML IVPB (17:20)
[2025-06-01] MEDS: VANCOMYCIN 1.5 GM/300 ML 1.5 GM/300 ML PIGGYBACK IVPB (17:52)
[2025-06-01] MEDS: LACTATED RINGERS 1000 ML 1,000 ML 250 ML IV ×2 (18:48→22:40)
--- NOTE | 2025-06-01 18:56 | PM.IMHP1 ---
Assessment and Plan Assessment and plan (1) Non-STEMI (non-ST elevated myocardial infarction): Problem comment: 79-year-old male with recurrent emergency department visits for chest pain in the last 3 days. Troponins mildly elevated and then increasing. Electrocardiograms normal. Unable to obtain history. Patient is not a candidate for intervention unless it can be established that he can cooperate with care plan and take medications. If the his mental status improves he may be a candidate for outpatient evaluation of coronary disease with CTA or Lexiscan. In the meantime will attempt to manage coronary disease medically Status: Acute (2) Altered mental status: Problem comment: Cause for this is uncertain. Likely a combination of dementia, schizoaffective disorder and medications used to treat his schizoaffective disorder. Mental status apparently fluctuates from agitation to current status where he is relatively sedated Status: Acute (3) Dementia: Problem comment: Appears fairly advanced. Continue to monitor and assess. Status: Acute (4) Agitation: Problem comment: Intermittent agitation associated with dementia and schizoaffective disorder. Status: Acute (5) Schizoaffective disorder: Problem comment: Continue Seroquel 200 mg twice daily. May substitute IM olanzapine if agitated and unable/unwilling to swallow pills Status: Acute (6) Urinary tract infection: Problem comment: Three days ago had urine culture which is negative for growth. At that time he had a suspicious urinalysis. Today he has and relatively normal urinalysis but is suspicious CT scan for bladder wall thickening and perinephric stranding. Also has an enlarged prostate. Assess for bladder outlet obstruction with bladder scan. No ongoing indication for treatment of UTI pending culture. Status: Acute (7) Right foot injury: Problem comment: Bruising on dorsum of right foot over distal metatarsals is purple to green color suggesting it is a few days old. X-ray shows no acute fracture. Unknown injury Status: Acute (8) Cyst of left kidney: Problem comment: Incidentally found on CT abdomen and pelvis 06/01/2025. Outpatient renal ultrasound if patient is willing, able and consistent with goals of care. Status: Acute (9) Discharge planning issues: Problem comment: Patient may need higher level of care at discharge. Discharge planning complicated by need to work with professional conservator/guardian. Status: Acute Plan 79-year-old male with dementia and schizoaffective disorder now presenting with ongoing problems with mental status, medication refusal, episodes of chest pain and diaphoresis. Based on increasing troponin levels I suspect he may have non STEMI. No other obvious illness to suggest demand ischemia. Difficult to assess chest pain. Difficult to make treatment decisions if he is unable to cooperate with care plan. Needs ongoing review with conservator/guardian Total Time Spent Total Time Spent: Total time spent today is 80 minutes in coordination of care, review of outside records, discussion with other providers ongoing management of behavioral problems and coronary artery disease Hospitalist- H&P: HPI History of Present Illness Date Seen: 06/01/25 Chief complaint: UTI Narrative: Christo Horan is a 79 year old male with diabetes mellitus, dementia and schizoaffective disorder admitted through the emergency department with altered mental status. Patient has decreased mental alertness and is unable to give any history. Information is obtained from the medical record and other secondhand sources. This is his 4th emergency room visit in the past 4 days. On May 29 he was seen for chest pain and diaphoresis. In his assisted living he was clutching his chest with his hand and appear diaphoretic. In the emergency department he had a mildly elevated troponin and was also diagnosed with a UTI and started on ceftriaxone then Keflex. On May 30 he was seen in the emergency room with agitation. It sounds like recently he has not been taking his normal medications. He was given additional ceftriaxone. On May 31 he was again seen to be diaphoretic and tremulous. At that time is urine culture was reported out as negative at 48 hours. He also had episodes of agitation and violent behavior reported by the emergency department staff. He was diagnosed with muscle spasm. Today, June 01, he returns to the emergency department with report that he is not taking his medications and that he seemed sleepy and difficult to arouse. He apparently has no friends or family who are healthcare power of tax attorney. The county and designated conservator and guardian are making decisions. Secondhand report of communication with them is that because he is full code status we should in ?do everything? . Review of Systems Narrative: Unable to obtain except as above [facility] Medical History (Updated 06/01/25 @ 19:26 by Cayetano Amaya MD) Discharge planning issues ?Z75.8 - Other problems related to medical facilities and other health care (ICD-10) Cyst of left kidney ?N28.1 - Cyst of kidney, acquired (ICD-10) Enlarged prostate ?N40.0 - Benign prostatic hyperplasia without lower urinary tract symptoms (ICD-10) Hyperlipidemia ?E78.5 - Hyperlipidemia, unspecified (ICD-10) Stage 3 chronic kidney disease ?N18.30 - Chronic kidney disease, stage 3 unspecified (ICD-10) Hypertension ?I10 - Essential (primary) hypertension (ICD-10) Diabetes mellitus ?E11.9 - Type 2 diabetes mellitus without complications (ICD-10) Vitamin B12 deficiency ?E53.8 - Deficiency of other specified B group vitamins (ICD-10) Altered mental status ?R41.82 - Altered mental status, unspecified (ICD-10) Schizoaffective disorder ?F25.9 - Schizoaffective disorder, unspecified (ICD-10) Surgical History (Updated 06/01/25 @ 19:13 by Cayetano Amaya MD) H/O bilateral cataract extraction ?Z98.41 - Cataract extraction status, right eye (ICD-10) ?Z98.42 - Cataract extraction status, left eye (ICD-10) History of colonoscopy ?Z98.890 - Other specified postprocedural states (ICD-10) History of colon resection ?Z90.49 - Acquired absence of other specified parts of digestive tract (ICD-10) Hx laparoscopic cholecystectomy ?Z90.49 - Acquired absence of other specified parts of digestive tract (ICD-10) Family History (Updated 06/01/25 @ 19:13 by Cayetano Amaya MD) Mother Heart disease Social History Smoking Status: Unknown if ever smoked Meds Home Medications and Allergies Home Medications ?Medication ?Instructions ?Recorded ?Confirmed ?Type aspirin 81 mg tablet,delayed 81 mg PO DAILY 10/28/24 12/14/24 History release (Adult Aspirin Regimen) atorvastatin 10 mg tablet 10 mg PO HS 10/28/24 12/14/24 History cyanocobalamin (vitamin B-12) 100 100 mcg PO DAILY 10/28/24 10/28/24 History mcg tablet escitalopram oxalate 10 mg tablet 10 mg PO DAILY 10/28/24 12/14/24 History furosemide 20 mg tablet 20 mg PO DAILY 10/28/24 12/14/24 History insulin glargine 100 unit/mL (3 12 unit subcut HS 10/28/24 10/28/24 History mL) subcutaneous pen (Basaglar KwikPen U-100 Insulin) insulin lispro 100 unit/mL 3 unit subcut TID 10/28/24 12/14/24 History subcutaneous pen (Admelog SoloStar U-100 Insulin lispro) lisinopril 20 mg tablet 20 mg PO DAILY 10/28/24 12/14/24 History metformin 1,000 mg tablet,extended 1,000 mg PO BIDWM 10/28/24 10/28/24 History release 24hr (osmotic) metoprolol tartrate 100 mg tablet 100 mg PO BID 10/28/24 12/14/24 History multivitamin (Daily Multi-Vitamin 1 tab PO DAILY 10/28/24 10/28/24 History tablet) potassium chloride 20 mEq oral 20 meq PO DAILY 10/28/24 10/28/24 History packet (Klor-Con) quetiapine 200 mg tablet (Seroquel) 200 mg PO BID 10/28/24 12/14/24 History cyanocobalamin (vitamin B-12) 1,000 mcg PO DAILY 12/14/24 12/14/24 History 1,000 mcg tablet metformin 500 mg tablet,extended mg PO 12/14/24 History release 24 hr multivitamin with folic acid 400 1 tab PO QPM 12/14/24 12/14/24 History mcg tablet (Daily-Denisha (with folic acid)) potassium chloride 20 mEq 20 meq PO DAILY 12/14/24 12/14/24 History tablet,extended release cephalexin 500 mg capsule 500 mg PO TID 7 days #21 caps 05/29/25 Rx Allergies Allergy/AdvReac Type Severity Reaction Status Date / Time No Known Drug Allergies Allergy Verified 05/30/25 13:03 Exam Narrative: Exam Narrative: He is sleeping. He arouses to light touch. He is nonverbal when he arouses. He occasionally follow simple commands. He is otherwise nonverbal. Head is without apparent trauma. Pupils are equal round and reactive to light. There is no facial asymmetry. Oropharynx with dry mucous membranes. Tongue is midline. Neck is supple without mass or adenopathy or tenderness. Respirations are clear to auscultation without wheezing rales rhonchi. Breathing is unlabored. Cardiovascular: S1, S2, regular rate and rhythm. No murmur gallop or rub. Abdomen: Bowel sounds active. Abdomen is soft without tenderness or mass. External genitalia normal. Lower extremities with intact pedal pulses. He has 2+ edema in both ankles. Compression stockings in place. Bruising over the dorsum of his right foot is noted. This area is not particularly tender. No other rash noted. He minimally voluntarily moves his 4 extremities without obvious focal abnormality. He does not cooperate with strength testing. Passive range of motion in the right upper extremity shows no significant rigidity but occasional jerks are noted within otherwise smooth range of motion. Left upper extremity has mild rigidity and also some myoclonic jerks. Const: Vital Signs, click to edit/add: Vital Signs - 24 hr 06/01/25 13:32 06/01/25 13:32 06/01/25 13:33 Temperature 35.9 C L Pulse Rate 68 67 Pulse Rate [Pulse Oximeter] 67 Respiratory Rate 16 16 Blood Pressure 127/58 L Blood Pressure [Le ft Upper Arm] 127/58 L Pulse Oximetry 96 95 96 Oxygen Delivery Me thod Room Air Room Air 06/01/25 13:55 06/01/25 14:00 06/01/25 14:15 Temperature Pulse Rate 66 67 62 Pulse Rate [Pulse Oximeter] Respiratory Rate 16 Blood Pressure 137/68 Blood Pressure [Le ft Upper Arm] Pulse Oximetry 91 94 96 Oxygen Delivery Me thod Room Air 06/01/25 14:16 06/01/25 14:45 06/01/25 14:50 Temperature Pulse Rate 63 64 62 Pulse Rate [Pulse Oximeter] Respiratory Rate 16 Blood Pressure 139/65 Blood Pressure [Le ft Upper Arm] Pulse Oximetry 91 96 96 Oxygen Delivery Me thod 06/01/25 15:00 06/01/25 15:03 06/01/25 15:15 Temperature Pulse Rate 62 61 60 Pulse Rate [Pulse Oximeter] Respiratory Rate 13 15 11 L Blood Pressure 157/70 H Blood Pressure [Le ft Upper Arm] Pulse Oximetry 94 93 84 L Oxygen Delivery Me thod 06/01/25 15:30 06/01/25 15:45 06/01/25 16:00 Temperature Pulse Rate 60 66 59 L Pulse Rate [Pulse Oximeter] Respiratory Rate 12 13 Blood Pressure Blood Pressure [Le ft Upper Arm] Pulse Oximetry 98 96 Oxygen Delivery Me thod 06/01/25 16:15 06/01/25 16:17 06/01/25 16:24 Temperature Pulse Rate 58 L 59 L 59 L Pulse Rate [Pulse Oximeter] Respiratory Rate 19 15 Blood Pressure 155/76 H Blood Pressure [Le ft Upper Arm] Pulse Oximetry 98 93 94 Oxygen Delivery Me thod Room Air Documenting provider has reviewed patient's vital signs: yes Hospitalist - H&P: Result Labs Labs: Short CBC 06/01/25 Range/Units 14:05 WBC 6.03 (4.50-11.00) K/uL Hgb 10.4 L (13.5-17.5) gm/dL Hct 33.8 L (37.0-53.0) % Plt Count 213 (140-440) K/uL BMP 06/01/25 14:05 Sodium 138 Potassium 3.6 Chloride 102 Carbon Dioxide 30 BUN 29 Creatinine 1.1 Glucose 184 H Calcium 9.0 Liver Function 06/01/25 Range/Units 14:05 Total Bilirubin 0.9 (0.1-1.5) mg/dL AST 100 H (12-35) U/L ALT 33 (4-50) U/L Alkaline Phosphatase 52 (40-150) U/L Albumin 3.8 (3.3-5.0) g/dL Urine 06/01/25 Range/Units 16:18 Urine Color Yellow (Yellow) Urine Appearance Clear (Clear) Urine pH 5.5 (5.0-8.5) Ur Specific [place] 1.020 (1.000-1.030) Urine Protein 3+ A (Negative) Urine Glucose (UA) Negative (Negative) ECG Attestation: I personally reviewed and interpreted this ECG as follows: (Normal sinus rhythm, first-degree AV block. Right bundle branch block. No acute ST-T changes. Compared to previous no significant change.) ECG interpretation date: 06/01/[address] scan - chest: Radiologist's impression: INDICATION: Altered mental status urinary tract infection TECHNIQUE: CT chest PE was acquired with 100 cc Omnipaque 350 IV contrast. Coronal and MIP reconstructions were performed. COMPARISON: None. FINDINGS: Heart and vasculature: Contrast opacification of the pulmonary arterial tree is adequate. No sign of pulmonary embolism. The heart is enlarged. Thoracic aorta and pulmonary artery are normal in caliber. There is a small pericardial effusion. There are calcifications of the coronary arteries. Lungs and pleura: The central airways are patent. There is subsegmental bibasilar atelectasis. There are a few areas of minimal mucous plugging in the bilateral lower lobes, for example in the right lower lobe on series 6, image 138. No lobar airspace consolidation, pleural effusion or pneumothorax. Lymph nodes/mediastinum: There are mildly prominent mediastinal and hilar lymph nodes. No lymphadenopathy by size criteria. Chest wall: No masses. Upper abdomen: There are multiple simple appearing renal cysts bilaterally, which are otherwise not well evaluated on the current examination secondary to contrast bolus timing. There is bilateral perinephric stranding. The patient is status post cholecystectomy. Bones: There are degenerative changes within the spine. No acute osseous abnormality. IMPRESSION: 1. No evidence of pulmonary embolism. 2. Cardiomegaly with a small pericardial effusion. 3. Subsegmental bibasilar atelectasis with a few areas of minimal mucous plugging in the bilateral lower lobes. No lobar airspace consolidation, pleural effusion or pneumothorax. CT scan - abdomen: Radiologist's impression: INDICATION: AMS, UTI TECHNIQUE: CT abdomen and pelvis acquired with 95 cc Isovue 370 IV contrast. COMPARISON: None. FINDINGS: Lower chest: The heart is enlarged, and there is a small pericardial effusion. There is subsegmental bibasilar atelectasis. Liver: Unremarkable. Normal in size and attenuation. No suspicious masses. Gallbladder and bile ducts: The patient is status post cholecystectomy. There is dilation of the common bile duct, measuring 1.1 centimeters on series 2, image 41. Pancreas: Unremarkable. No mass or inflammation. Spleen: Unremarkable. Normal in size. No masses. Adrenal glands: Unremarkable. No nodules. Kidneys: The kidneys are symmetric in size and enhancement. There is an intermediate cystic structure within the left kidney and measuring 3.7 x 2.3 centimeters on series 2, image 60. This cyst may have layering debris or possibly an internal septation. There is also a simple appearing cyst in the upper pole of the right kidney on series 2, image 49, which does not require further imaging follow-up. There is mild bilateral perinephric stranding. GI tract: Unremarkable. Normal in caliber. No sign of mass or inflammation. Normal appendix. Vasculature: Abdominal aorta is normal in caliber. Mesenteric arteries are patent. Lymph nodes: No lymphadenopathy. Peritoneum/Abdominal Wall: Unremarkable. No sign of mass or infiltration. No free air or significant free fluid. Pelvis: The prostate gland is enlarged. There is mild left posterior bladder wall thickening, for example on series 2, image 134. Bones: There are degenerative changes within the spine. No acute osseous abnormality. IMPRESSION: 1. Bladder wall thickening, as well as bilateral perinephric stranding. Correlation with urinalysis is recommended, if not already performed, to evaluate for urinary tract infection. 2. There is an indeterminate 3.7 x 2.3 centimeter cystic structure within the left kidney, as described. The cyst may contain an internal septation or layering debris. Dedicated renal ultrasound is recommended for further evaluation. 3. Status post cholecystectomy with dilation of the common bile duct, measuring 1.1 centimeters. This may be a chronic finding. If further evaluation is required, right upper quadrant ultrasound is recommended. No prior imaging is available for comparison. 4. Enlarged prostate. Right foot: Radiologist's impression: INDICATION: Trauma, foot bruising, altered mental status COMPARISON: None. TECHNIQUE: Three radiographic view(s) of the right foot. FINDINGS: No evident acute displaced fracture. 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 Accessory peroneal ossicle. Small osseous excrescence at the inferior aspect of the medial malleolus is likely due to old trauma. Medium-sized plantar and posterior calcaneal enthesophytes. There are atherosclerotic vascular calcifications. IMPRESSION: 1. No acute osseous findings. 2. 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
[2025-06-01] MEDS: OLANZapine 5 MG/ML inj 10 MG IM (23:19)
[2025-06-01] MEDS: ATORVASTATIN CALCIUM 40 MG TABLET PO ×2 (23:27→23:34)
[2025-06-01] MEDS: MELATONIN 3 MG TABLET PO (23:27)
[2025-06-01] MEDS: METOPROLOL TARTRATE 100 MG TABLET 50 MG PO (23:34)
--- NOTE | 2025-06-01 23:42 | PC.NURSE ---
Dr. MAJOR called. Quality Control Lab Tech responded to assist de-escalation. Pt exhibited ongoing agitation and aggressive behavior. Security and MD present. PRN Olanzapine drawn up and given IVP instead of IM per verbal MD order.
--- NOTE | 2025-06-02 00:57 | PC.NURSE ---
Behavior Note Safety Relief Valve Technician entered pt room accompanied by Nurse to reposition and change pt. Pt became combative and kicked Nurse. Code Dr. Medel called at 2310, pt given prn medication per provider order. around 2330 pt remained disoriented but cooperative with cares. Pt ate dinner and is asleep at this time. pt unable to use call light, bed alarms on.
[2025-06-02 03:00] VITALS: BP 147/58; RESP 16; TEMP 36.1; O2SAT 95
--- NOTE | 2025-06-02 06:08 | PC.NURSE ---
Pt came unto floor 1999, upon assessment pt speech was incoherent. Pt was somnolent, when racebook writer attempted to take Vital signs pt was guarding and irritable. Pt refused 2300 blood pressure check. Pt BG was 150. Pt check and changed throughout shift, pt has loose stools, provider aware. Around 2300, pt had an episode of combativeness. pt given prn medication per provider order. pt remained somnolent and cooperative for rest of the shift. Pt able to make toiling needs known, but remains incont of bowel and bladder. Pt is awake in bed at this time, no signs of discomfort or pain noted at this time.
[2025-06-02] MEDS: LOPERAMIDE HCL 2 MG CAPSULE PO (06:26)
[2025-06-02 07:00] VITALS: BP 155/58; PULSE 60; RESP 20; TEMP 36.2; O2SAT 96
[2025-06-02 07:48] LABS: Hematocrit* 36.2 % (37.0-53.0); Hemoglobin* 11.1 gm/dL (13.5-17.5); Immature Granulocytes Abs Auto 0.01 K/uL (0.00-0.30); Immature Granulocytes Pct Auto 0.1 %; Mean Corpuscular HGB Conc 31 gm/dL (32-36); Mean Corpuscular Hemoglobin 29 pg (26-34); Mean Corpuscular Volume 94 fL (80-100); RDW Coefficient of Variation % 14.0 % (11.5-15.5); Red Blood Count* 3.87 m/uL (4.30-5.90); White Blood Count* 7.25 K/uL (4.50-11.00)
[2025-06-02 07:52] LABS: Lymphocytes Absolute Auto 0.90 K/uL (0.90-2.90); Slide Review Reflex No
[2025-06-02 08:07] LABS: Chloride* 106 mmol/L (96-114); Potassium* 3.4 mmol/L (3.6-5.1); Sodium* 140 mmol/L (135-149)
[2025-06-02 08:10] LABS: Anion Gap 7 mEq/L (7-15); Blood Urea Nitrogen* 21 mg/dL (7-30); Calcium* 9.0 mg/dL (8.4-10.6); Carbon Dioxide* 27 mmol/L (20-32); Creatinine* 0.9 mg/dL (0.5-1.5); Est. Creatinine Clearance* 59.82; Estimated Glomerular Filt Rate 86 ml/min; Glucose* 229 mg/dL (60-115)
[2025-06-02] MEDS: FUROSEMIDE 20 MG TABLET PO (08:28)
[2025-06-02] MEDS: METFORMIN ER 500 MG 1000 MG PO ×2 (08:28→20:25)
[2025-06-02] MEDS: ASPIRIN 81 MG TABLET EC PO (08:29)
[2025-06-02] MEDS: POTASSIUM CHLORIDE 10 MEQ CAPSULE ER 20 MEQ PO (08:29)
[2025-06-02] MEDS: ISOSORBIDE MONONITRATE ER 30 MG TAB 60 MG PO (08:29)
[2025-06-02] MEDS: ESCITALOPRAM 10 MG TABLET PO (08:29)
[2025-06-02] MEDS: METOPROLOL TARTRATE 100 MG TABLET 50 MG PO ×2 (08:29→20:25)
[2025-06-02] MEDS: QUETIAPINE 100 MG TABLET 200 MG PO ×2 (08:30→20:24)
[2025-06-02] MEDS: INSULIN ASPART 100 UNIT/ML SUBCUT ×5 (08:30→20:28)
[2025-06-02] MEDS: OLANZapine 5 MG/ML inj IM ×2 (09:23→16:42)
[2025-06-02 11:00] VITALS: BP 141/66; PULSE 59; RESP 18; TEMP 36.3; O2SAT 95
--- NOTE | 2025-06-02 14:57 | PM.IMPN1 ---
Assessment and Plan Assessment and plan (1) Non-STEMI (non-ST elevated myocardial infarction): Problem comment: 79-year-old male with recurrent emergency department visits for chest pain in the last 3 days. Troponins mildly elevated and then increasing. Electrocardiograms normal. Unable to obtain history. Patient is not a candidate for intervention unless it can be established that he can cooperate with care plan and take medications. If the his mental status improves he may be a candidate for outpatient evaluation of coronary disease with CTA or Lexiscan. In the meantime will attempt to manage coronary disease medically. 06/02/2025: I decreased his lisinopril dose in half from 20 mg daily the 10 mg daily, and I started him on isosorbide mononitrate 60 mg once daily. Continue to monitor. If remains stable will consider transferring back. Will need to discuss with his guardian once we have his condition stabilized or establish an understanding about the plan of care. Status: Acute (2) Altered mental status: Problem comment: Cause for this is uncertain. Likely a combination of dementia, schizoaffective disorder and medications used to treat his schizoaffective disorder. Mental status apparently fluctuates from agitation to current status where he is relatively sedated Status: Acute (3) Dementia: Problem comment: Appears fairly advanced. Continue to monitor and assess. Status: Acute (4) Agitation: Problem comment: Intermittent agitation associated with dementia and schizoaffective disorder. Status: Acute (5) Schizoaffective disorder: Problem comment: Continue Seroquel 200 mg twice daily. May substitute IM olanzapine if agitated and unable/unwilling to swallow pills Status: Acute (6) Urinary tract infection: Problem comment: Three days ago had urine culture which is negative for growth. At that time he had a suspicious urinalysis. Today he has and relatively normal urinalysis but is suspicious CT scan for bladder wall thickening and perinephric stranding. Also has an enlarged prostate. Assess for bladder outlet obstruction with bladder scan. No ongoing indication for treatment of UTI pending culture. Continue to monitor off of antibiotics unless cultures return suggesting treatment. Status: Acute (7) Right foot injury: Problem comment: Bruising on dorsum of right foot over distal metatarsals is purple to green color suggesting it is a few days old. X-ray shows no acute fracture. Unknown injury Status: Acute (8) Cyst of left kidney: Problem comment: Incidentally found on CT abdomen and pelvis 06/01/2025. Outpatient renal ultrasound if patient is willing, able and consistent with goals of care. Status: Acute (9) Discharge planning issues: Problem comment: Patient may need higher level of care at discharge. Discharge planning complicated by need to work with professional conservator/guardian. Status: Acute Total Time Spent Total Time Spent: 50 minutes Subjective Date Seen: 06/02/25 Interval history: Admission history of present illness: ?79 year old male with diabetes mellitus, dementia and schizoaffective disorder admitted through the emergency department with altered mental status. Patient has decreased mental alertness and is unable to give any history. Information is obtained from the medical record and other secondhand sources. This is his 4th emergency room visit in the past 4 days. On May 29 he was seen for chest pain and diaphoresis. In his assisted living he was clutching his chest with his hand and appear diaphoretic. In the emergency department he had a mildly elevated troponin and was also diagnosed with a UTI and started on ceftriaxone then Keflex. On May 30 he was seen in the emergency room with agitation. It sounds like recently he has not been taking his normal medications. He was given additional ceftriaxone. On May 31 he was again seen to be diaphoretic and tremulous. At that time is urine culture was reported out as negative at 48 hours. He also had episodes of agitation and violent behavior reported by the emergency department staff. He was diagnosed with muscle spasm. Today, June 01, he returns to the emergency department with report that he is not taking his medications and that he seemed sleepy and difficult to arouse. ?He apparently has no friends or family who are healthcare power of litigation attorney associate. The [facility] and designated conservator and guardian are making decisions. Secondhand report of communication with them is that because he is full code status we should in ?do everything? .? 06/02/2025, hospital day 2. Patient appears comfortable in hospital at this time. Unable to provide any meaningful history. Difficult to engage in any meaningful conversation. At times when he is satisfied he smiles and babbles. At times when he is not satisfied he appears to be angry, makes a fist and directed at those who are trying to help him, and at times will even try to swing and hit the person who is trying to help him. Does not appear to be in any physical distress while here. He did remove his laboratory monitor here. For the time being he still has an IV in place. Exam Narrative: Exam Narrative: I examine him in his hospital room. While I am examining him he is eating his breakfast and he babbles and allows me to examine him briefly. He is not able to engage in any meaningful dialogue or conversation. Lungs are clear to auscultation. Heart tones with regular rhythm. Abdomen benign. Extremities without edema. No focal motor neurologic deficits. Later I a reassess the patient when he is threatening to punch 1 of the nurses for offering him medications. He is readily redirectable and readily accepts offer for food. His agitated behaviors resolve quickly but then they reappear quickly again. A single dose of 2.5 mg of olanzapine IM is administered as he refuses various oral medications. His agitated state resolves for the time being. Const: Vital Signs, click to edit/add: Vital Signs - 24 hr 06/01/25 15:00 06/01/25 15:03 06/01/25 15:15 Temperature Pulse Rate 62 61 60 Pulse Rate [Pulse Oximeter] Respiratory Rate 13 15 11 L Blood Pressure 157/70 H Blood Pressure [Le ft Arm] Pulse Oximetry 94 93 84 L Oxygen Delivery Me thod 06/01/25 15:30 06/01/25 15:45 06/01/25 16:00 Temperature Pulse Rate 60 66 59 L Pulse Rate [Pulse Oximeter] Respiratory Rate 12 13 Blood Pressure Blood Pressure [Le ft Arm] Pulse Oximetry 98 96 Oxygen Delivery Me thod 06/01/25 16:15 06/01/25 16:17 06/01/25 16:24 Temperature Pulse Rate 58 L 59 L 59 L Pulse Rate [Pulse Oximeter] Respiratory Rate 19 15 Blood Pressure 155/76 H Blood Pressure [Le ft Arm] Pulse Oximetry 98 93 94 Oxygen Delivery Me thod Room Air 06/01/25 16:25 06/01/25 16:30 06/01/25 16:45 Temperature Pulse Rate 58 L 59 L 59 L Pulse Rate [Pulse Oximeter] Respiratory Rate 16 16 17 Blood Pressure Blood Pressure [Le ft Arm] Pulse Oximetry 95 93 94 Oxygen Delivery Me thod 06/01/25 17:00 06/01/25 17:02 06/01/25 17:15 Temperature Pulse Rate 56 L 57 L 59 L Pulse Rate [Pulse Oximeter] Respiratory Rate 13 Blood Pressure 149/68 H Blood Pressure [Le ft Arm] Pulse Oximetry 96 99 97 Oxygen Delivery Me thod Room Air 06/01/25 17:30 06/01/25 17:42 06/01/25 17:45 Temperature Pulse Rate 60 59 L 55 L Pulse Rate [Pulse Oximeter] Respiratory Rate 16 Blood Pressure 150/64 H Blood Pressure [Le ft Arm] Pulse Oximetry 96 88 96 Oxygen Delivery Me thod Room Air 06/01/25 18:00 06/01/25 18:02 06/01/25 18:15 Temperature Pulse Rate 59 L 53 L 54 L Pulse Rate [Pulse Oximeter] Respiratory Rate 20 19 15 Blood Pressure 167/74 H Blood Pressure [Le ft Arm] Pulse Oximetry 98 96 Oxygen Delivery Me thod 06/01/25 18:22 06/01/25 18:30 06/01/25 18:43 Temperature Pulse Rate 56 L 65 55 L Pulse Rate [Pulse Oximeter] Respiratory Rate 23 18 Blood Pressure 153/71 H 157/72 H Blood Pressure [Le ft Arm] Pulse Oximetry 92 94 97 Oxygen Delivery Me thod Room Air 06/01/25 18:45 06/01/25 19:00 06/01/25 19:02 Temperature Pulse Rate 53 L 58 L 68 Pulse Rate [Pulse Oximeter] Respiratory Rate 16 16 Blood Pressure 157/79 H Blood Pressure [Le ft Arm] Pulse Oximetry 97 89 99 Oxygen Delivery Me thod Room Air 06/01/25 19:15 06/01/25 19:22 06/01/25 19:30 Temperature Pulse Rate 59 L 65 65 Pulse Rate [Pulse Oximeter] Respiratory Rate 17 Blood Pressure 163/83 H Blood Pressure [Le ft Arm] Pulse Oximetry 96 98 Oxygen Delivery Me thod 06/01/25 19:42 06/01/25 19:45 06/01/25 22:03 Temperature 35.9 C L Pulse Rate 59 L 56 L Pulse Rate [Pulse Oximeter] Respiratory Rate 14 Blood Pressure 143/60 H Blood Pressure [Le ft Arm] 157/62 H Pulse Oximetry 93 96 98 Oxygen Delivery Me thod Room Air Room Air 06/01/25 22:03 06/01/25 23:00 06/01/25 23:00 Temperature Pulse Rate 55 L Pulse Rate [Pulse Oximeter] Respiratory Rate 18 18 Blood Pressure Blood Pressure [Le ft Arm] Pulse Oximetry 99 Oxygen Delivery Me thod Room Air 06/01/25 23:00 06/02/25 03:00 06/02/25 07:00 Temperature 35.6 C L 36.1 C L 36.2 C L Pulse Rate Pulse Rate [Pulse Oximeter] 60 Respiratory Rate 18 16 20 Blood Pressure Blood Pressure [Le ft Arm] 147/58 H 155/58 H Pulse Oximetry 99 95 96 Oxygen Delivery Me thod Room Air Room Air Room Air 06/02/25 11:00 Temperature 36.3 C L Pulse Rate Pulse Rate [Pulse Oximeter] 59 L Respiratory Rate 18 Blood Pressure Blood Pressure [Le ft Arm] 141/66 H Pulse Oximetry 95 Oxygen Delivery Me thod Room Air Labs Labs: Laboratory Results - last 24 hr 06/01/25 06/01/25 06/01/25 14:05 15:05 16:05 WBC RBC Hgb Hct MCV MCH MCHC RDW Coeff of Harvinder Plt Count Neut % (Auto) Lymph % (Auto) [place] % (Auto) Eos % (Auto) Baso % (Auto) Neut # (Auto) Lymph # (Auto) [place] # (Auto) Eos # (Auto) Baso # (Auto) Abs Immat Gran (auto) Imm/Tot Granulo (auto) Sodium Potassium Chloride Carbon Dioxide Anion Gap BUN Creatinine Estimated Creat Clear Estimated GFR Glucose Calcium Magnesium Troponin I C-Reactive Protein Lipase 19 L Urine Color Urine Appearance Urine pH Ur Specific Straughn Urine Protein Urine Glucose (UA) Urine Ketones Urine Blood Urine Nitrite Urine Bilirubin Urine Urobilinogen Ur Leukocyte Esterase Urine RBC Urine WBC Ur Squamous Epith Cells Urine Bacteria SARS-CoV-2 (PCR) Negative SARS-CoV-2 Influenza Type A (PCR) Negative PCR FLU A Influenza Type B (PCR) Negative PCR FLU B RSV (PCR) Negative PCR RSV Lab Acknowledgement Test Added 06/01/25 06/02/25 16:18 05:45 WBC 7.25 RBC 3.87 L Hgb 11.1 L Hct 36.2 L MCV 94 MCH 29 MCHC 31 L RDW Coeff of Harvinder 14.0 Plt Count 227 Neut % (Auto) 73.3 H Lymph % (Auto) 12.7 L [place] % (Auto) 10.5 Eos % (Auto) 2.8 Baso % (Auto) 0.6 Neut # (Auto) 5.30 Lymph # (Auto) 0.90 [place] # (Auto) 0.80 Eos # (Auto) 0.20 Baso # (Auto) 0.04 Abs Immat Gran (auto) 0.01 Imm/Tot Granulo (auto) 0.1 Sodium 140 Potassium 3.4 L Chloride 106 Carbon Dioxide 27 Anion Gap 7 BUN 21 Creatinine 0.9 Estimated Creat Clear 59.82 Estimated GFR 86 Glucose 229 H Calcium 9.0 Magnesium 1.9 Troponin I 0.09 H* C-Reactive Protein 3.6 H Lipase Urine Color Yellow Urine Appearance Clear Urine pH 5.5 Ur Specific Straughn 1.020 Urine Protein 3+ A Urine Glucose (UA) Negative Urine Ketones 2+ A Urine Blood 2+ A Urine Nitrite Negative Urine Bilirubin 1+ A Urine Urobilinogen 0.2 Ur Leukocyte Esterase Trace A Urine RBC 2-5 A Urine WBC 2-5 Ur Squamous Epith Cells Few Urine Bacteria Few A SARS-CoV-2 (PCR) Influenza Type A (PCR) Influenza Type B (PCR) RSV (PCR) Lab Acknowledgement
[2025-06-02 19:00] VITALS: BP 154/63; PULSE 57; RESP 20; TEMP 36.5; O2SAT 98
[2025-06-02] MEDS: SODIUM CHLORIDE 0.9 % (FLUSH) 10 ML SYRINGE 5 ML IVF (19:46)
--- NOTE | 2025-06-02 19:50 | PC.NURSE ---
End of shift [id number] - Pt alert, not able to verbalize orientation, discomfort, or needs. Pt speech noted to be mumbled and garbled and pt is difficult to redirect. Tolerating RA and regular diet/fluids. Pt incontinent of bladder, intermittently cooperative to brief changes. Pt initially able to transport with EZ stand, however pt became less cooperative to EZ stand and staff assistance for ambulation. Ended shift as a heavy x2 assist stand/pivot. Pt behavior escalated at approximately 0900 when he became increasingly agitated and combative. Pt observed to attempt to kick and punch staff while yelling profane language. DR MAJOR called to Med/Surg and medication given per AUG. Pt behavior improved and he was noted to sleep. Pt compliant to cares and re-direction during middle of shift with behavior once again becoming increasingly agitated and combative. Medication given per MAR with pt behavior improving after a significant amount of time and re-approaches. Pt appears to be resting comfortably at end of shift.
[2025-06-02] MEDS: MULTIVITAMIN/MINERALS 1 TABLET 1 TAB PO (20:25)
[2025-06-02] MEDS: ATORVASTATIN CALCIUM 40 MG TABLET PO (20:26)
[2025-06-02] MEDS: ENOXAPARIN 40 MG/0.4 ML INJ SUBCUT (20:26)
[2025-06-02 23:00] VITALS: PULSE 57; RESP 20
[2025-06-03] VITALS (7 sets, daily range): BP systolic 136–188; BP diastolic 72–79; PULSE 73–88; RESP 16–18; TEMP 36.5–36.6; O2SAT 91–99
--- NOTE | 2025-06-03 04:24 | PC.NURSE ---
Pt disoriented throughout shift. Pt has garbled and mumbled speech, but is able to respond with nodding when prompted. Pt transfers Assist of 1-2 w/EZ stand. Pt on regular diet, meal tolerated. Pt showed no signs of pain, slept for most of shift. Pt is asleep comfortably, chest rise and fall noted.
--- NOTE | 2025-06-03 06:08 | PC.NURSE ---
[id number] Pt cooperative during evening, RN able to administer all evening meds, wash up pt, brush teeth, change/toilet pt, give pt dinner and converse with pt. Transferred to toiled x2 with 2A and ez-stand, tolerated transfer, continent/incontinent of bowel and bladder. pt was able to verbalize need to use BR at times. slept briefly after dinner, sat up on edge of bed around midnight and enjoyed some ice cream and slept remainder of night.
--- NOTE | 2025-06-03 10:00 | W.PC.NUTR.NO ---
Nutrition Progress Note Progress Note Progress Note: RDN with nutrition screen related to positive skin risk score. Patient admitted for NonSTEMI, AMS. History includes diabetes mellitus, dementia and schizoaffective disorder. Current weight 92.221kg; height 177.8cm; BMI 29.2 kgm2. Per weight history, weight has been stable recently. Diet order is Regular. Meal intakes since admit have been adequate at 75%+. With stable weight and adequate intakes, no nutrition interventions needed at this time. RDN will continue to monitor and follow-up prn.
--- NOTE | 2025-06-03 10:09 | PC.SOCIAL ---
Addendum entered by Chel Monteiro ESCROW CLOSER 06/03/25 15:42: Called [facility] and spoke with [facility] [phone]. She gave permission to verbally sign the Important Message from Medicare. Liz did not want a copy of the form. Original Note: Discharge planning: Called pt's listed [facility] guardian Cayetano Doonvan [phone] and herd outgoing message he is out of the office until June 10. Called [facility] [employer] 27/12 libe [phone] and spoke with Mona who stated the 27/12 guardianship line should be used for any decision making for pt until assigned guardian returns on Jn 5. Mona shared pt has a history of behavioral concerns when he has a UTI but that this usually resolved with treatment of the UTI. Guardian states she would expect behaviors to resolve and pt could return to [facility] after UTI treatment. bone worker to follow up as needed.
--- NOTE | 2025-06-03 10:35 | PC.NURSE ---
While trying to Change patients pad and sheets Patient was combative. Attempting to hit and kick staff, while nursing were cleaning him up.
[2025-06-03] MEDS: QUETIAPINE 100 MG TABLET 200 MG PO ×2 (12:59→23:56)
[2025-06-03] MEDS: INSULIN ASPART 100 UNIT/ML SUBCUT ×3 (13:05→18:04)
--- NOTE | 2025-06-03 13:18 | P.IMPN_ITS ---
Assessment and Plan Assessment and plan (1) Non-STEMI (non-ST elevated myocardial infarction): Problem comment: 79-year-old male with recurrent emergency department visits for chest pain in the last 3 days. Troponins mildly elevated and then increasing. Electrocardiograms normal. Unable to obtain history. Patient is not a candidate for intervention unless it can be established that he can cooperate with care plan and take medications. If the his mental status improves he may be a candidate for outpatient evaluation of coronary disease with CTA or Lexiscan. In the meantime will attempt to manage coronary disease medically. 06/02/2025: I decreased his lisinopril dose in half from 20 mg daily the 10 mg daily, and I started him on isosorbide mononitrate 60 mg once daily. Continue to monitor. If remains stable will consider transferring back. Will need to discuss with his guardian once we have his condition stabilized or establish an understanding about the plan of care 06/03 - continue to monitor pressures as changes just made yesterday Status: Acute (2) Altered mental status: Problem comment: Cause for this is uncertain. Likely a combination of dementia, schizoaffective disorder and medications used to treat his schizoaffective disorder. Mental status apparently fluctuates from agitation to current status where he is relatively sedated Status: Acute (3) Dementia: Problem comment: Appears fairly advanced. Continue to monitor and assess. Status: Acute (4) Agitation: Problem comment: Intermittent agitation associated with dementia and schizoaffective disorder 06/03 social security specialist to check on [facility] bed availability. Would be appropriate for med management in order to return to appropriate residence Status: Acute (5) Schizoaffective disorder: Problem comment: Continue Seroquel 200 mg twice daily. May substitute IM olanzapine if agitated and unable/unwilling to swallow pills Status: Acute (6) Urinary tract infection: Problem comment: RULED OUT Three days ago had urine culture which is negative for growth. At that time he had a suspicious urinalysis. Today he has and relatively normal urinalysis but is suspicious CT scan for bladder wall thickening and perinephric stranding. Also has an enlarged prostate. Assess for bladder outlet obstruction with bladder scan. No ongoing indication for treatment of UTI pending culture. Continue to monitor off of antibiotics unless cultures return suggesting treatment - urine culture and blood cultures showing no growth Status: Ruled-out (7) Right foot injury: Problem comment: Bruising on dorsum of right foot over distal metatarsals is purple to green color suggesting it is a few days old. X-ray shows no acute fracture. Unknown injury Status: Acute (8) Cyst of left kidney: Problem comment: Incidentally found on CT abdomen and pelvis 06/01/2025. Outpatient renal ultrasound if patient is willing, able and consistent with goals of care. Status: Acute (9) Discharge planning issues: Problem comment: Discharge planning complicated by need to work with professional conservator/guardian Status: Acute Total Time Spent Total Time Spent: Today I spent 30 minutes seeing the patient, reviewing [facility] and EPIC notes/ diagnostics, discussing the care plan with our care time that includes social work, PT/OT, pharmacy, RT, senior living and documenting my impressions and plan in the medical record. Subjective Date Seen: 06/03/25 Interval history: Patient is seen lying in bed this morning. Per staff, typically does not wake until around 10:00 a.m.. Appears comfortable. Normal respirations. Awaiting placement. Spoke with social work case manager, may consider [facility] which would be appropriate for medication management/adjustment in hopes of plateauing cycles, reducing agitation. May be unable to return to current living situation if continues to have outbursts. Exam Narrative: Exam Narrative: PHYSICAL EXAM General: Sleeping, in NAD Cardiovascular: RRR Pulmonary: No dyspnea on room air Skin: Warm, dry. Const: Vital Signs, click to edit/add: Vital Signs - 24 hr 06/02/25 19:00 06/02/25 23:00 06/02/25 23:00 Temperature 97.7 F Pulse Rate [Pulse Oximeter] 57 L 57 L Respiratory Rate 20 20 20 Blood Pressure [Le ft Arm] 154/63 H Pulse Oximetry 98 Oxygen Delivery Me thod Room Air 06/03/25 03:00 06/03/25 10:07 06/03/25 12:33 Temperature 97.9 F Pulse Rate [Pulse Oximeter] 74 78 Respiratory Rate 18 18 18 Blood Pressure [Le ft Arm] 136/79 Pulse Oximetry 94 95 Oxygen Delivery Me thod Room Air Room Air
--- NOTE | 2025-06-03 14:25 | PC.SOCIAL ---
Addendum entered by MINNA ReardonSW 06/03/25 17:46: Received call from Katrina at [facility] stating they can not accept pt due to the acuity of other patients they have in their unit currently. She stated this would not change all week, but if still looking for a bed next week, social sciences department chair can reach out again. Addendum entered by MINNA ReardonSW 06/03/25 15:09: Received call back from Katrina at [facility] stating they can assess pt for a geriatric bed at their facility. Faxed requested information for evaluation for admit and provided them with contact information for social work and nursing for follow up. Awaiting decision on admit. dish room worker to follow up as needed. Original Note: Discharge planning: Per MD order for in-pt mental health placement, called the following facilities from the [facility] Health Access website with the listed results: 1. [facility] ([place], [place], [place], [place], [place]) [phone] - no beds today. Call back tomorrow after 9:00am 2. [facility] [facility] - not appropriate - no dementia. 3. [facility] - not appropriate - no dementia. 4, [place] [phone] - no beds. Call tomorrow after 11:00am. 5. [facility] [phone] ([facility]) no beds. Call tomorrow. 6. [facility] - [phone] - no beds. Call back tomorrow 7. [facility] - not appropriate - no dementia. 8. [facility], - left message requesting call back. Also called nurse station and was sent to same admissions voicemail. dish room worker to follow up as needed.
--- NOTE | 2025-06-03 18:49 | PC.NURSE ---
End of shift [id number]: Pt arousable to light touch upon initial assessment. Pt unable to verbalize needs and orientation. Mumbled and garbled speech noted with profanity use during attempt of cares. Pt combative and noncompliant with all cares in the morning. Pt attempting to hit staff during brief/bedding change. Pt refusing meals/medications/getting out of bed/VS for the first half of the shift. Pt compliant to cares and re-direction during middle of shift with behaviors becoming increasingly agitated and sleepy during the evening again. Pt agreed to lunch and snack. Pt refused dinner. Pt incontinent of bladder and bowel, intermittently cooperative to brief changes. Pt initially unable to transport with EZ stand to chair this afternoon, requiring ceiling lift. Pt able to tolerate EZ stand back to bed in the afternoon, A2. Call light within reach. [address], SL. Tolerating RA. Able to reposition self in bed when sleeping.
[2025-06-03] MEDS: ENOXAPARIN 40 MG/0.4 ML INJ SUBCUT (23:53)
[2025-06-03] MEDS: METOPROLOL TARTRATE 100 MG TABLET 50 MG PO (23:55)
[2025-06-04] VITALS (7 sets, daily range): BP systolic 138–153; BP diastolic 60–71; PULSE 64–78; RESP 16–18; TEMP 36.4–36.7; O2SAT 96
[2025-06-04] MEDS: SODIUM CHLORIDE 0.9 % (FLUSH) 10 ML SYRINGE 5 ML IVF ×2 (00:30→09:20)
[2025-06-04 06:15] LABS: Hematocrit* 34.3 % (37.0-53.0); Hemoglobin* 11.1 gm/dL (13.5-17.5); Immature Granulocytes Abs Auto 0.05 K/uL (0.00-0.30); Immature Granulocytes Pct Auto 0.9 %; Mean Corpuscular HGB Conc 32 gm/dL (32-36); Mean Corpuscular Hemoglobin 29 pg (26-34); Mean Corpuscular Volume 88 fL (80-100); RDW Coefficient of Variation % 13.6 % (11.5-15.5); Red Blood Count* 3.89 m/uL (4.30-5.90); White Blood Count* 5.53 K/uL (4.50-11.00)
--- NOTE | 2025-06-04 06:15 | PC.NURSE ---
Pt slept throughout shift, pt is arousable to name and touch. Pt is Assist of 2 w/brief changes throughout shift. Upon assessment pt refused to remove covers, pt reproached q2hr throughout shift. Pt allowed global technical writer to do VS and change brief and bedding 1x. Pt took Meds whole in pudding at HS. Pt asleep and comfortable at this time, will continue to monitor.
[2025-06-04 06:19] LABS: Lymphocytes Absolute Auto 0.90 K/uL (0.90-2.90); Slide Review Reflex No
[2025-06-04 06:26] LABS: Chloride* 105 mmol/L (96-114); Potassium* 3.5 mmol/L (3.6-5.1); Sodium* 141 mmol/L (135-149)
[2025-06-04 06:29] LABS: Anion Gap 6 mEq/L (7-15); Blood Urea Nitrogen* 13 mg/dL (7-30); Calcium* 8.6 mg/dL (8.4-10.6); Carbon Dioxide* 30 mmol/L (20-32); Creatinine* 0.8 mg/dL (0.5-1.5); Est. Creatinine Clearance* 59.82; Estimated Glomerular Filt Rate 89 ml/min; Glucose* 126 mg/dL (60-115)
[2025-06-04] MEDS: METFORMIN ER 500 MG 1000 MG PO ×2 (08:05→18:13)
[2025-06-04] MEDS: METOPROLOL TARTRATE 100 MG TABLET 50 MG PO ×2 (09:19→21:08)
[2025-06-04] MEDS: ISOSORBIDE MONONITRATE ER 30 MG TAB 60 MG PO (09:19)
[2025-06-04] MEDS: INSULIN ASPART 100 UNIT/ML SUBCUT ×6 (09:19→21:10)
[2025-06-04] MEDS: POTASSIUM CHLORIDE 10 MEQ CAPSULE ER 20 MEQ PO (09:19)
[2025-06-04] MEDS: ASPIRIN 81 MG TABLET EC PO (09:20)
[2025-06-04] MEDS: ESCITALOPRAM 10 MG TABLET PO (09:20)
[2025-06-04] MEDS: QUETIAPINE 100 MG TABLET 200 MG PO ×2 (09:20→21:07)
[2025-06-04] MEDS: FUROSEMIDE 20 MG TABLET PO (09:20)
--- NOTE | 2025-06-04 11:34 | PM.IMPN1 ---
Assessment and Plan Assessment and plan (1) Discharge planning issues: Problem comment: Awaiting placement. 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 If this is not available, patient would be appropriate to return to a memory care unit given improvement in mood, outbursts, willingness to take medications Discharge planning complicated by need to work with professional conservator/guardian Status: Acute (2) Dementia: Problem comment: Appears fairly advanced Status: Acute (3) Agitation: Problem comment: Intermittent agitation associated with dementia and schizoaffective disorder Status: Acute (4) Schizoaffective disorder: Problem comment: Continue Seroquel 200 mg twice daily. May substitute IM olanzapine if agitated and unable/unwilling to swallow pills Status: Acute (5) Altered mental status: Problem comment: Cause for this is uncertain. Likely a combination of dementia, schizoaffective disorder and medications used to treat his schizoaffective disorder. Mental status apparently fluctuates from agitation to current status where he is relatively sedated Status: Acute (6) Right foot injury: Problem comment: Bruising on dorsum of right foot over distal metatarsals is purple to green color suggesting it is a few days old. X-ray shows no acute fracture. Unknown injury Status: Acute (7) Cyst of left kidney: Problem comment: Incidentally found on CT abdomen and pelvis 06/01/2025 Outpatient renal ultrasound recommended if patient is willing, able and consistent with goals of care. Status: Acute (8) Urinary tract infection: Problem comment: RULED OUT Three days ago had urine culture which is negative for growth. At that time he had a suspicious urinalysis. Today he has and relatively normal urinalysis but is suspicious CT scan for bladder wall thickening and perinephric stranding. Also has an enlarged prostate. Assess for bladder outlet obstruction with bladder scan. No ongoing indication for treatment of UTI pending culture. Continue to monitor off of antibiotics unless cultures return suggesting treatment - urine culture and blood cultures showing no growth Status: Ruled-out (9) Non-STEMI (non-ST elevated myocardial infarction): Problem comment: NO FURTHER COURSE OF ACTION 79-year-old male with recurrent emergency department visits for chest pain in the last 3 days. Troponins mildly elevated and then increasing. Electrocardiograms normal. Unable to obtain history. Patient is not a candidate for intervention unless it can be established that he can cooperate with care plan and take medications. If the his mental status improves he may be a candidate for outpatient evaluation of coronary disease with CTA or Lexiscan. In the meantime will attempt to manage coronary disease medically. 06/02/2025: I decreased his lisinopril dose in half from 20 mg daily the 10 mg daily, and I started him on isosorbide mononitrate 60 mg once daily. Continue to monitor. If remains stable will consider transferring back. Will need to discuss with his guardian once we have his condition stabilized or establish an understanding about the plan of care 06/03 - continue to monitor pressures as changes just made yesterday Status: Acute (10) Hypertension: Problem comment: -medication changes as above, currently on lisinopril 10 mg and isosorbide mononitrate 60 mg. Pressures have been stable -continue outpatient medication management to optimize pressures Status: Acute Plan Medically stable for discharge, awaiting placement Total Time Spent Total Time Spent: Today I spent 30 minutes seeing the patient, reviewing Expanse and EPIC notes/diagnostics, discussing the care plan with our care time that includes social work, PT/OT, pharmacy, RT, alf and documenting my impressions and plan in the medical record. Subjective Date Seen: 06/04/25 Interval history: Patient was up to his chair earlier than usual this morning. Took his Seroquel last night and again this morning with morning medications. Awaiting placement. 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 If this is not available, patient would be appropriate to return to a memory care unit given improvement in mood, outbursts, willingness to take medications. Exam Narrative: Exam Narrative: PHYSICAL EXAM General: Sitting up in chair, calm and cooperative, in NAD Cardiovascular: RRR Pulmonary: No dyspnea on room air Skin: Warm, dry. Const: Vital Signs, click to edit/add: Vital Signs - 24 hr 06/03/25 12:33 06/03/25 16:15 06/03/25 21:20 Temperature 97.9 F 97.7 F Pulse Rate [Pulse Oximeter] 78 88 74 Respiratory Rate 18 18 18 Blood Pressure [Le ft Arm] 136/79 185/78 H 188/72 H Pulse Oximetry 95 99 97 Oxygen Delivery Me thod Room Air Room Air Room Air 06/03/25 23:00 06/04/25 03:00 06/04/25 08:03 Temperature 97.7 F Pulse Rate [Pulse Oximeter] 64 Respiratory Rate 18 16 18 Blood Pressure [Le ft Arm] Pulse Oximetry 96 Oxygen Delivery Me thod Room Air 06/04/25 08:03 06/04/25 10:58 Temperature 98 F Pulse Rate [Pulse Oximeter] 64 78 Respiratory Rate 18 18 Blood Pressure [Le ft Arm] 153/71 H Pulse Oximetry 96 Oxygen Delivery Tx thod Room Air Labs Labs: Laboratory Results - last 24 hr 06/04/25 05:37 WBC 5.53 RBC 3.89 L Hgb 11.1 L Hct 34.3 L MCV 88 MCH 29 MCHC 32 RDW Coeff of Harvinder 13.6 Plt Count 233 Neut % (Auto) 63.7 Lymph % (Auto) 15.9 L [place] % (Auto) 11.6 H Eos % (Auto) 7.4 H Baso % (Auto) 0.5 Neut # (Auto) 3.52 Lymph # (Auto) 0.90 [place] # (Auto) 0.60 Eos # (Auto) 0.40 Baso # (Auto) 0.03 Abs Immat Gran (auto) 0.05 Imm/Tot Granulo (auto) 0.9 Sodium 141 Potassium 3.5 L Chloride 105 Carbon Dioxide 30 Anion Gap 6 L BUN 13 Creatinine 0.8 Estimated Creat Clear 59.82 Estimated GFR 89 Glucose 126 H Calcium 8.6 C-Reactive Protein 1.1 H
--- NOTE | 2025-06-04 14:24 | PC.SOCIAL ---
Discharge planning: woodworker reached out to the following facilities from the [place] [facility] website with the listed results(some of these facilities were contacted yesterday, as well, and social work was instructed to call back today): 1. [facility] are the only [facility] facilities with [facility] units) #[phone]: No beds available at this time. May try back on Tuesday. 2. [facility]) #[phone]: No [facility]ha-psych beds available. They cannot accommodate pt's with [place]. 3. [facility] #[phone]: No Radha-psych beds. Call back Tue. 4. [facility] #[phone]: No [facility]-psych beds. Call back Wed. woodworker faxed over updated progress notes on the pt to [place] [facility] at fax number #[phone]. woodworker then spoke to Laure Bailey RN #[phone] at [facility] this week after she reviewed the notes that this worker faxed over. Laure shared that she would like to hear how the pt does overnight tonight with staff at the hospital tomorrow morning. Laure states they can consider taking pt back at [facility] when she knows more tomorrow about how he did with taking his medications, behaviors, etc. tonight. woodworker updated Laure that social work staff have not had any luck ith locating a [facility] bed for the pt over the last two days. woodworker will plan to touch base with Laure tomorrow morning after rounds. Social work to follow-up as needed.
--- NOTE | 2025-06-04 14:44 | PC.NURSE ---
End of Shift: Patient pleasant and cooperative today. Patient is vitally stable, lungs clear, BS WNL, IVs SL and intact. Patient does not respond when asked if he has pain. Patient was ceiling lift to the recliner and EZ stand back in bed. Patient was in recliner until after lunch when he had a very large soft BM. Patient is incontinent of bowel and bladder. Patient ate all of his breakfast independently and only ate his cookie for lunch. Patient is not oriented but will talk when he is in a good mood. Patient has been napping in bed comfortably since after the lunch hour.
[2025-06-04] MEDS: MULTIVITAMIN/MINERALS 1 TABLET 1 TAB PO (18:13)
[2025-06-04] MEDS: ATORVASTATIN CALCIUM 40 MG TABLET PO (21:08)
[2025-06-04] MEDS: ENOXAPARIN 40 MG/0.4 ML INJ SUBCUT (21:08)
[2025-06-05 06:00] VITALS: RESP 16
--- NOTE | 2025-06-05 06:52 | PC.NURSE ---
End of shift: Pt pleasant,?alert?and oriented to self.?Restful VS. Low stimulus environment provided. Checked?q2h?and?changed?as needed. Pt?observed?repositioning?independently.?Pt impulsive at times. Pt in bed, appears to be resting, call light within reach, alarms on.
[2025-06-05 07:00] VITALS: BP 169/95; PULSE 77; RESP 16; TEMP 36.7; O2SAT 96
[2025-06-05] MEDS: FUROSEMIDE 20 MG TABLET PO (09:21)
[2025-06-05] MEDS: QUETIAPINE 100 MG TABLET 200 MG PO (09:21)
[2025-06-05] MEDS: ISOSORBIDE MONONITRATE ER 30 MG TAB 60 MG PO (09:22)
[2025-06-05] MEDS: ESCITALOPRAM 10 MG TABLET PO (09:22)
[2025-06-05] MEDS: POTASSIUM CHLORIDE 10 MEQ CAPSULE ER 20 MEQ PO (09:22)
[2025-06-05] MEDS: ASPIRIN 81 MG TABLET EC PO (09:22)
[2025-06-05] MEDS: METOPROLOL TARTRATE 100 MG TABLET 50 MG PO (09:23)
[2025-06-05] MEDS: INSULIN ASPART 100 UNIT/ML SUBCUT ×4 (09:25→12:36)
[2025-06-05] MEDS: METFORMIN ER 500 MG 1000 MG PO (09:30)
--- NOTE | 2025-06-05 10:39 | P.DS_ITS ---
DS: Providers Provider Date Seen: 06/05/25 Date of admission: 06/01/25 19:48 Primary care physician: Nathalia Smiley MD Admitting Clinician: Cayetano Amaya MD Consults: 06/01/25 20:07 Consult to Lasting Machine Operator [CONS] Routine Comment: Reason for Consult:: Discharge Planning Needs Attending Physician on discharge: CARLOS Cardona, PAKatieC Date of Discharge: 06/05/25 DS: Diagnosis Discharge Diagnosis (1) Dementia: Status: Acute Problem details: Appears fairly advanced (2) Agitation: Status: Acute Problem details: Intermittent agitation associated with dementia and schizoaffective disorder (3) Schizoaffective disorder: Status: Acute Problem details: Continue Seroquel 200 mg twice daily (4) Altered mental status: Status: Acute Problem details: Cause for this is uncertain. Likely a combination of dementia, schizoaffective disorder and medications used to treat his schizoaffective disorder. Mental status apparently fluctuates from agitation to current status where he is relatively sedated. (5) Right foot injury: Status: Acute Problem details: Bruising on dorsum of right foot over distal metatarsals is purple to green color suggesting it is a few days old. X-ray shows no acute fracture. Unknown injury. (6) Cyst of left kidney: Status: Acute Problem details: Incidentally found on CT abdomen and pelvis 06/01/2025 Outpatient renal ultrasound recommended if patient is willing, able and consistent with goals of care. (7) Hypertension: Status: Acute Problem details: Medication changes during hospital course. Currently on lisinopril 10 mg and isosorbide mononitrate 60 mg, metoprolol 50mg bid. Pressures have been stable. Atorvastatin increased to 40mg iso NSTEMI as well. Outpatient follow up for medication management to optimize pressures. (8) Urinary tract infection: Status: Ruled-out Problem details: RULED OUT Three days ago had urine culture which is negative for growth. At that time he had a suspicious urinalysis. Today he has and relatively normal urinalysis but is suspicious CT scan for bladder wall thickening and perinephric stranding. Also has an enlarged prostate. Assess for bladder outlet obstruction with bladder scan. No ongoing indication for treatment of UTI pending culture. Continue to monitor off of antibiotics unless cultures return suggesting treatment - urine culture and blood cultures showing no growth (9) Non-STEMI (non-ST elevated myocardial infarction): Status: Acute Problem details: NO FURTHER COURSE OF ACTION 79-year-old male with recurrent emergency department visits for chest pain in the last 3 days. Troponins mildly elevated and then increasing. Electrocardiograms normal. Unable to obtain history. Patient is not a candidate for intervention unless it can be established that he can cooperate with care plan and take medications. If the his mental status improves he may be a candidate for outpatient evaluation of coronary disease with CTA or Lexiscan. In the meantime will attempt to manage coronary disease medically. 06/02/2025: I decreased his lisinopril dose in half from 20 mg daily the 10 mg daily, and I started him on isosorbide mononitrate 60 mg once daily. Continue to monitor. If remains stable will consider transferring back. Will need to discuss with his guardian once we have his condition stabilized or establish an understanding about the plan of care 06/03 - continue to monitor pressures as changes just made yesterday (10) Discharge planning issues: Status: Acute Problem details: Awaiting placement. application services manager has reached out to [facility] facilities for placement to optimize medications with goal to obtain a more euthymic state. If this is not available, patient would be appropriate to return to a memory care unit given improvement in mood, outbursts, willingness to take medications Discharge planning complicated by need to work with professional conservator/guardian Patient will return to [facility]. Recommend outpatient follow-up with PCP as well as consideration for Psychiatry assistance in medication management. I have asked Yareli, current acting guardian, to speak with [place] who is patient's legal guardian to review POLST and update code status appropriately. DS: Summary Hospital Course Hospital Course: Course of care and details as noted above. Admitted with generalized weakness, agitation. UTI ruled out. NSTEMI coincidentally found. No further workup was requested by legal guardian. Discussed need for review of POLST and update of code status. May benefit from [facility] evaluation for medication management. Status at Discharge Cognitive/behavioral status at discharge: Stable, improved Overall status at discharge: patient is back to baseline Time Spent with Patient Time attestation: Total time spent providing and/or coordinating discharge services: Time spent: Greater than 30 minutes Exam Narrative: Exam Narrative: PHYSICAL EXAM General: Sitting up in chair, calm and cooperative, in NAD Cardiovascular: RRR Pulmonary: No dyspnea on room air Skin: Warm, dry. Const: Vital Signs, click to edit/add: Vital Signs - 24 hr 06/04/25 10:58 06/04/25 15:00 06/04/25 15:00 Temperature 98 F 97.6 F Pulse Rate [Pulse Oximeter] 78 70 70 Respiratory Rate 18 16 16 Blood Pressure [Le ft Arm] 153/71 H 138/60 Pulse Oximetry 96 96 Oxygen Delivery Me thod Room Air Room Air 06/04/25 19:00 06/04/25 23:00 06/04/25 23:30 Temperature 98.1 F Pulse Rate [Pulse Oximeter] 77 77 Respiratory Rate 16 18 18 Blood Pressure [Le ft Arm] 141/63 H Pulse Oximetry 96 Oxygen Delivery Me thod Room Air 06/05/25 06:00 06/05/25 07:00 06/05/25 07:00 Temperature 98.1 F Pulse Rate [Pulse Oximeter] 77 77 Respiratory Rate 16 16 16 Blood Pressure [Le ft Arm] 169/95 H Pulse Oximetry 96 Oxygen Delivery Me thod Room Air DS: Data Data Completed and Pending Labs on day of discharge: Preliminary micro results at discharge 06/01/25 14:10 Blood Culture - Preliminary Blood NO GROWTH AFTER 72 HOURS 06/01/25 14:05 Blood Culture - Preliminary Blood NO GROWTH AFTER [address] scan - head: Attestation: I have reviewed the pertinent imaging results. Radiologist's impression: No CT evidence of acute cortical infarct. No loss of barnett white matter differentiation. No hyperdense vessels to suggest intracranial thrombus. No acute intracranial hemorrhage. No mass effect or midline shift. No hydrocephalus or extra-axial collections. Patchy white matter hypoattenuation, typical for chronic microvascular ischemic change. Moderate generalized parenchymal volume loss with advanced atrophy of the hippocampal formations. Intracranial vascular calcifications. No acute osseous abnormalities. Mastoid air cells and paranasal sinuses are clear. Normal soft tissues. IMPRESSION: IMPRESSION:1. No CT evidence of acute cortical infarct. No acute intracranial hemorrhage. No other acute intracranial findings. CT scan - abdomen: Radiologist's impression: Lower chest: The heart is enlarged, and there is a small pericardial effusion. There is subsegmental bibasilar atelectasis. Liver: Unremarkable. Normal in size and attenuation. No suspicious masses. Gallbladder and bile ducts: The patient is status post cholecystectomy. There is dilation of the common bile duct, measuring 1.1 centimeters on series 2, image 41. Pancreas: Unremarkable. No mass or inflammation. Spleen: Unremarkable. Normal in size. No masses. Adrenal glands: Unremarkable. No nodules. Kidneys: The kidneys are symmetric in size and enhancement. There is an intermediate cystic structure within the left kidney and measuring 3.7 x 2.3 centimeters on series 2, image 60. This cyst may have layering debris or possibly an internal septation. There is also a simple appearing cyst in the upper pole of the right kidney on series 2, image 49, which does not require further imaging follow-up. There is mild bilateral perinephric stranding. GI tract: Unremarkable. Normal in caliber. No sign of mass or inflammation. Normal appendix. Vasculature: Abdominal aorta is normal in caliber. Mesenteric arteries are patent. Lymph nodes: No lymphadenopathy. Peritoneum/Abdominal Wall: Unremarkable. No sign of mass or infiltration. No free air or significant free fluid. Pelvis: The prostate gland is enlarged. There is mild left posterior bladder wall thickening, for example on series 2, image 134. Bones: There are degenerative changes within the spine. No acute osseous abnormality. IMPRESSION: 1. Bladder wall thickening, as well as bilateral perinephric stranding. Correlation with urinalysis is recommended, if not already performed, to evaluate for urinary tract infection. 2. There is an indeterminate 3.7 x 2.3 centimeter cystic structure within the left kidney, as described. The cyst may contain an internal septation or layering debris. Dedicated renal ultrasound is recommended for further evaluation. 3. Status post cholecystectomy with dilation of the common bile duct, measuring 1.1 centimeters. This may be a chronic finding. If further evaluation is required, right upper quadrant ultrasound is recommended. No prior imaging is available for comparison. 4. Enlarged prostate. Foot x-ray: Attestation: I have reviewed the pertinent imaging results. Radiologist's impression: No evident acute displaced fracture. 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 Accessory peroneal ossicle. Small osseous excrescence at the inferior aspect of the medial malleolus is likely due to old trauma. Medium-sized plantar and posterior calcaneal enthesophytes. There are atherosclerotic vascular calcifications. IMPRESSION: 1. No acute osseous findings. 2. 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 CTA chest: Attestation: I have reviewed the pertinent imaging results. Radiologist's impression: Heart and vasculature: Contrast opacification of the pulmonary arterial tree is adequate. No sign of pulmonary embolism. The heart is enlarged. Thoracic aorta and pulmonary artery are normal in caliber. There is a small pericardial effusion. There are calcifications of the coronary arteries. Lungs and pleura: The central airways are patent. There is subsegmental bibasilar atelectasis. There are a few areas of minimal mucous plugging in the bilateral lower lobes, for example in the right lower lobe on series 6, image 138. No lobar airspace consolidation, pleural effusion or pneumothorax. Lymph nodes/mediastinum: There are mildly prominent mediastinal and hilar lymph nodes. No lymphadenopathy by size criteria. Chest wall: No masses. Upper abdomen: There are multiple simple appearing renal cysts bilaterally, which are otherwise not well evaluated on the current examination secondary to contrast bolus timing. There is bilateral perinephric stranding. The patient is status post cholecystectomy. Bones: There are degenerative changes within the spine. No acute osseous abnormality. IMPRESSION: 1. No evidence of pulmonary embolism. 2. Cardiomegaly with a small pericardial effusion. 3. Subsegmental bibasilar atelectasis with a few areas of minimal mucous plugging in the bilateral lower lobes. No lobar airspace consolidation, pleural effusion or pneumothorax. Discharge Plan Discharge Disposition: [facility] Date of Admission: 06/01/25 19:48 Attending Provider on Discharge: Jannie Bustos Primary Care Provider: Nathalia Smiley Condition: Improved Anticipated Discharge Date/Time: 06/05/25 10:18 Discharge Medications: New atorvastatin 40 mg Tablet 40 mg PO HS Qty: 30 0RF metoprolol tartrate 100 mg Tablet 50 mg PO BID Qty: 30 0RF isosorbide mononitrate 30 mg Tablet Extended Release 24 Hr 60 mg PO DAILY Qty: 60 0RF lisinopril 10 mg Tablet 10 mg PO DAILY Qty: 30 0RF Continued insulin lispro [Admelog SoloStar U-100 Insulin] 100 unit/mL insulin pen 3 unit subcut TIDWM aspirin [Adult Aspirin Regimen] 81 mg tablet,delayed release (DR/EC) 81 mg PO DAILY insulin glargine [Basaglar KwikPen U-100 Insulin] 100 unit/mL (3 mL) insulin pen 12 unit subcut HS escitalopram oxalate 10 mg tablet 10 mg PO DAILY furosemide 20 mg tablet 20 mg PO DAILY quetiapine [Seroquel] 200 mg tablet 200 mg PO BID cyanocobalamin (vitamin B-12) 1,000 mcg tablet 1,000 mcg PO DAILY metformin 500 mg tablet extended release 24 hr 1,000 mg PO BIDWM multivitamin with folic acid [Daily-Denisha (with folic acid)] 400 mcg tablet 1 tab PO QPM potassium chloride 20 mEq tablet extended release 20 meq PO DAILY diclofenac sodium 1 % gel 2 g topical BID Rx Instructions: PLUS PRN loperamide 2 mg capsule 2 mg PO Q4H PRN (Reason: diarrhea) acetaminophen 500 mg tablet 1,000 mg PO TID Rx Instructions: PLUS DAILY PRN Discontinued cephalexin 500 mg capsule 500 mg PO TID 7 Days Qty: 21 0RF atorvastatin 10 mg tablet 10 mg PO HS lisinopril 20 mg tablet 20 mg PO DAILY metoprolol tartrate 100 mg tablet 100 mg PO BID oxycodone 5 mg tablet 5 mg PO BID Rx Instructions: PLUS BID PRN Discharge Orders: Discharge Order (Routine); Ordered 06/05/25 Ordered By: Jannie Bustos Additional Instructions: Medication changes as above: Atorvastatin dose increased to 40 mg daily Metoprolol dose decreased to 50 mg b.i.d. Lisinopril dose decreased to 10mg daily Added Isosorbide mononitrate 60mg daily Will need to continue to monitor blood pressure and adjust medications as necessary. Consider outpatient psychiatry evaluation for medication management and recommendations. I have asked patient's guardian to review POLST and update code status appropriately. Activity Level: Activity as Tolerated Discharge Diet: Regular Follow Up Appointments: Nathalia Smiley MD [Primary Care Provider, Family Practice] Referral Note: Post hospital follow-up 7-10 days Forms: [facility] Info Instructions Admit to: [facility] Discharge Potential: Poor Length of Stay: >90 days Can use facility standing orders?: Yes Code Status: Full Code Rehab Potential: Poor Oxygen: No Urinary Catheter: No Orders are good >30 days: No Signature: Jannie Bustos [facility], [place]-[facility] Hospitalist
[2025-06-05 11:00] VITALS: BP 165/65; PULSE 65; RESP 14; TEMP 36.6; O2SAT 96
--- NOTE | 2025-06-05 11:09 | PC.SOCIAL ---
Addendum entered by YESIKA Dominique 06/05/25 14:05: Discharge planning: stucco worker also secure emailed the pt's discharge orders and summary to Lolis Obrien at [facility] [email or web address]. Social work to follow-up as needed. Addendum entered by YESIKA Dominique 06/05/25 13:09: Discharge planning: Discharge orders were faxed to SONYA Kelsey at [facility] at fax number #[phone]. Laure confirmed that she received the orders. stucco worker also informed Laure that non-emergent EMS is estimating a pick-up time of 2:30pm for transport back to [facility] Social work to follow-up as needed. Original Note: Discharge planning: stucco worker spoke to Laure Bailey RN on-call at [facility] this week #[phone] this morning after rounds and it was determined that they([facility] are able to accept the pt back today 06/05/25, pending approval from [facility]. Pt has been cooperative and pleasant with hospital staff and has been taking his medications as prescribed. stucco worker talked to Lolis Obrien from [facility] and she stated that the county is [place] with the pt returning to [facility] today. stucco worker will secure email Lolis the pt's discharge paperwork later today when it is available. stucco worker also secure emailed Lolis a copy of The Important Message from Medicare form that was signed on 06/03/[address] [facility] at [email or web address]. When this worker spoke to Lolis she had no concerns with the pt returning to [facility] today and is glad he is able to go back to his home. Pt will need to transport via non-emergent EMS due to his diagnosis of Dimentia and needing to be monitored by another person and also because he is transferred via an EZ stand. Social work to follow-up as needed.
[2025-06-05] MEDS: SODIUM CHLORIDE 0.9 % (FLUSH) 10 ML SYRINGE 5 ML IVF (12:35)
== END 2025-06-05 15:27 | DRG 757 ==
LOC: ED 16:31 → MEDSURG 19:49
PROVIDERS: Admitting Provider Family Medicine; Emergency Provider Emergency Medicine; PCP Family Medicine; Visit Provider Family Medicine
DX: F03.911 Unspecified dementia, unspecified severity, with agitation (principal); I21.4 Non-ST elevation (NSTEMI) myocardial infarction; F05 Delirium due to known physiological condition; F25.9 Schizoaffective disorder, unspecified; Z91.148 Patient's other noncompliance with medication regimen for other reason; I12.9 Hypertensive chronic kidney disease with stage 1 through stage 4 chronic kidney disease, or unspecified chronic kidney disease; E11.22 Type 2 diabetes mellitus with diabetic chronic kidney disease; N18.30 Chronic kidney disease, stage 3 unspecified; R82.998 Other abnormal findings in urine; N28.1 Cyst of kidney, acquired; S99.921A Unspecified injury of right foot, initial encounter; Z79.84 Long term (current) use of oral hypoglycemic drugs; Z79.4 Long term (current) use of insulin; E78.5 Hyperlipidemia, unspecified; R45.1 Restlessness and agitation; M62.838 Other muscle spasm; N39.0 Urinary tract infection, site not specified
CPT/HCPCS: 36415; 70450; 71275; 73630; 74177; 80048; 80053; 81001; 82565; 82962; 83605; 83690; 83735; 84484; 85025; 86140; 87040; 87086; 87493; 87631; 93005; 99285; A9153; A9270; J1650; J1815; J2543; J3375; J7030; J7120; Q9967

== ENCOUNTER 2025-06-05 15:26 | Outpatient (CLI) | payer BC, SELFPAY | END 2025-06-05 15:27 | disposition home or self-care (01) | LOC: AMB 06-14 14:34 | PROVIDERS: PCP Family Medicine; Visit Provider Emergency Medicine | DX: F03.90 Unspecified dementia, unspecified severity, without behavioral disturbance, psychotic disturbance, mood disturbance, and anxiety (principal); R45.1 Restlessness and agitation; F25.9 Schizoaffective disorder, unspecified | CPT/HCPCS: A0425; A0428 ==